=== PATIENT | female | born 1970 | race African-American/Black ===

== ENCOUNTER 2016-06-18 11:19 | Inpatient (IN) | payer OTHER ==
[2016-06-18 18:37] VITALS: BMI 27.4
--- NOTE | 2016-06-18 19:16 | HP ---
CIWA Score - CIWA Score Nausea/Vomitin-Mild Nausea/No Vomiting Muscle Tremors: 4-Moderate,w/Arms Extend Anxiety: 4-Mod. Anxious/Guarded Agitation: 4-Moderately Restless Paroxysmal Sweats: 1-Minimal Palms Moist Orientation: 3-Disoriented Date>2 days Tacttile Disturbances: 0-None Auditory Disturbances: 0-None Visual Disturbances: 0-None Headache: 0-None Present CIWA-Ar Total Score: 17 Admission ROS S - HPI Chief Complaint: withdrawal sx Allergies/Adverse Reactions: Allergies Allergy/AdvReac Type Severity Reaction Status Date / Time No Known Allergies Allergy Verified 06/18/16 12:03 History of Present Illness: 46 years old female with long history of alcohol Exam Limitations: No Limitations - Ebola screening Have you traveled outside of the country in the last 21 days: No Have you had contact with anyone from an Ebola affected area: No Have you been sick,other than usual withdrawal symptoms: No Do you have a fever: No - Review of Systems Constitutional: Chills, Changes in sleep, Weight Stable EENT: reports: No Symptoms Reported Respiratory: reports: SOB with Exertion Cardiac: reports: No Symptoms Reported GI: reports: Nausea, Poor Fluid Intake, Abdominal cramping : reports: No Symptoms Reported Musculoskeletal: reports: No Symptoms Reported Integumentary: reports: No Symptoms Reported Neuro: reports: Tremors Endocrine: reports: No Symptoms Reported Hematology: reports: No Symptoms Reported Psychiatric: reports: Judgement Intact, Depressed Other Systems: Reviewed and Negative Patient History - Patient Medical History Hx Anemia: No Hx Asthma: No Hx Chronic Obstructive Pulmonary Disease (COPD): No Hx Cancer: No Hx Cardiac Disorders: No Hx Congestive Heart Failure: No Hx Hypertension: Yes (DYAZIDE) Hx Hypercholesterolemia: No Hx Pacemaker: No HX Cerebrovascular Accident: No Hx Seizures: No Hx Dementia: No Hx Diabetes: No Hx Gastrointestinal Disorders: No Hx Liver Disease: No Hx Genitourinary Disorders: No Hx Sexually Transmitted Disorders: No Hx Renal Disease (ESRD): No Hx Thyroid Disease: No Hx Human Immunodeficiency Virus (HIV): No Hx Hepatitis C: No Hx Depression: Yes Hx Suicide Attempt: No Hx Bipolar Disorder: No Hx Schizophrenia: No - Patient Surgical History Past Surgical History: Yes Hx Neurologic Surgery: No Hx Cataract Extraction: No Hx Cardiac Surgery: No Hx Lung Surgery: No Hx Breast Surgery: No Hx Breast Biopsy: No Hx Abdominal Surgery: Yes ([id number]) Hx Appendectomy: No Hx Cholecystectomy: No Hx Genitourinary Surgery: No Hx Section: No Hx Orthopedic Surgery: No Hx Hysterectomy: No Anesthesia Reaction: No - PPD History Previous Implant?: Yes Documented Results: Negative w/proof Implanted On Prior [facility] Admission?: Yes Date: 01/06/16 PPD to be Administered?: No - Reproductive History Patient is a Female of Child Bearing Age (11 -55 yrs old): Yes Last Menstrual Period: 06/15/16 Patient : Yes - Smoking Cessation Smoking history: Never smoked Have you smoked in the past 12 months: No Cigars Per Day: 0 Hx Chewing Tobacco Use: No Initiated information on smoking cessation: No - Substance & Tx. History Hx Alcohol Use: No Substance Use Type: Alcohol Hx Substance Use Treatment: Yes - Substances Abused Alcohol Route: Oral Frequency: Daily Amount used: pint volka Age of first use: 25 Date of Last Use: 06/18/16 Family Disease History - Family Disease History Family Disease History: Heart Disease: Mother (HTN) Admission Physical Exam S - Vital Signs Vital Signs: Vital Signs - 24 hr 06/18/16 06/18/16 11:37 18:31 Temperature 96.8 F L 97.3 F L Pulse Rate 86 83 Respiratory 20 16 Rate Blood Pressure 148/96 139/96 - Physical General Appearance: Yes: Nourished, Appropriately Dressed, Moderate Distress, Alcohol on Breath, Tremorous, Irritable, Sweating, Anxious HEENTM: Yes: Hearing grossly Normal, Normal ENT Inspection, Normocephalic, Normal Voice Respiratory: Yes: Chest Non-Tender, Lungs Clear, Normal Breath Sounds, No Respiratory Distress, No Accessory Muscle Use Neck: Yes: Supple, Trachea in good position Breast: Yes: Breasts Symetrical Cardiology: Yes: Regular Rhythm, Regular Rate, S1, S2 Abdominal: Yes: Non Tender, Soft Genitourinary: Yes: Within Normal Limits Back: Yes: Normal Inspection Musculoskeletal: Yes: full range of Motion, Gait Steady Extremities: Yes: Normal Range of Motion, Non-Tender, Tremors Neurological: Yes: Alert, Motor Strength 5/5, Normal Response, Depressed Affect Integumentary: Yes: Warm, Moist Lymphatic: Yes: Within Normal Limits - Diagnostic (1) Alcohol dependence with uncomplicated withdrawal Current Visit: Yes Status: Acute (2) HTN (hypertension) Current Visit: Yes Status: Acute Qualifiers: Hypertension type: essential hypertension Qualified Code(s): I10 - Essential (primary) hypertension Cleared for Admission [facility] - Detox or Rehab [facility] Level of Care: Medically Managed Detox Regimen/Protocol: Librium [facility] Breath Alcohol Content Breath Alcohol Content: 0.171 Urine Pregancy Test - Result Urine Test Results: Negative- NO Line Present Urine Drug Screen - Results Drug Screen Negative: Yes
[2016-06-18] MEDS ORDERED: MAGNESIUM CITRATE 300 ML BOTTLE PO PRN (19:19)
[2016-06-18] MEDS ORDERED: MENTHOL/PHENOL 1 EACH UD MM PRN (19:19)
[2016-06-18] MEDS ORDERED: ACETAMINOPHEN 325 MG TABLET (FP) PO PRN (19:19)
[2016-06-18] MEDS ORDERED: MAGNESIUM HYDROX 2400MG/30ML ORAL SUSPENSION 30 ML CUP PO PRN (19:19)
[2016-06-18] MEDS ORDERED: chlordiazePOXIDE HCL 25 MG CAPSULE PO PRN (19:19)
[2016-06-18] MEDS ORDERED: LOPERAMIDE HCL 2 MG CAPSULE PO PRN (19:19)
[2016-06-18] MEDS ORDERED: guaiFENesin/D-METHORPHAN HB 10 ML UNIT-DOSE CUPS PO PRN (19:19)
[2016-06-18] MEDS ORDERED: chlordiazePOXIDE HCL 25 MG CAPSULE PO ONE (19:19)
[2016-06-18] MEDS ORDERED: MAG HYDROX/AL HYDROX/SIMETH 30 ML UNIT-DOSE CUP PO PRN (19:19)
[2016-06-18] MEDS ORDERED: P-EPHED 60MG/TRIPROLIDI 2.5MG TABLET PO PRN (19:19)
[2016-06-18] MEDS: chlordiazePOXIDE HCL 25 MG CAPSULE PO SCH (22:46)
[2016-06-18] MEDS: THIAMINE HCL 100 MG TABLET (FP) PO SCH (22:46)
[2016-06-18 23:09] LABS: URINE APPEARANCE CLEAR; URINE BILIRUBIN NEGATIVE (NEGATIVE); URINE COLOR YELLOW; URINE GLUCOSE (UA) NEGATIVE (NEGATIVE); URINE KETONE NEGATIVE (NEGATIVE); URINE LEUK ESTERASE NEGATIVE (NEGATIVE); URINE NITRITE NEGATIVE (NEGATIVE); URINE PROTEIN NEGATIVE (NEGATIVE); URINE UROBILINOGEN NEGATIVE E.U./dl (0.2-1.0)
[2016-06-18 23:25] LABS: URINE BLOOD 1+ (NEGATIVE)
[2016-06-18] MEDS: cloNIDine HCL 0.1 MG TABLET PO PRN (23:27)
[2016-06-18] MEDS: diphenhydrAMINE HCL 50 MG CAPSULE PO PRN (23:27)
[2016-06-18 23:33] LABS: URINE BACTERIA RARE /hpf (NONE SEEN); URINE MUCUS MANY; URINE RBC 10 /hpf (0-3); URINE WBC 2 /hpf (3-5)
[2016-06-19] MEDS: chlordiazePOXIDE HCL 25 MG CAPSULE PO SCH ×4 (05:59→22:47)
[2016-06-19] MEDS: hydrOXYzine PAMOATE 50 MG CAPSULE (FP) PO PRN ×2 (05:59→10:44)
[2016-06-19] MEDS: PRENATAL VITAMINS W/ FOLIC ACID TABLET (FP) PO SCH (10:44)
[2016-06-19] MEDS: amLODIPine BESYLATE 10 MG TABLET (FP) PO SCH (10:44)
[2016-06-19] MEDS: METOPROLOL SUCCINATE 25 MG TAB.SR.24H (FP) PO SCH (10:44)
[2016-06-19 11:16] LABS: MCHC 30.8 g/dl (32.0-36.0); MEAN CELL VOLUME 71.3 fl (80-96); MEAN PLT VOLUME 8.4 fl (7.5-11.1); PLATELET COUNT 352 K/MM3 (134-434); RDW 23.6 % (11.6-15.6); WHITE BLOOD COUNT 4.9 K/mm3 (4.0-10.0)
[2016-06-19 11:42] LABS: ALBUMIN 3.3 g/dl (3.4-5.0); ALK PHOS 58 U/L (45-117); ANION GAP 9 (8-16); BILIRUBIN,TOTAL 0.5 mg/dL (0.2-1.0); CALCIUM 8.3 mg/dL (8.5-10.1); CO2 28 mmol/L (21-32); CREATININE 0.6 mg/dL (0.55-1.02); GLUCOSE,RANDOM 78 mg/dL (74-106); SGOT/AST 23 U/L (15-37); SGPT/ALT 18 U/L (12-78); TOT PROT 6.7 g/dl (6.4-8.2)
--- NOTE | 2016-06-19 13:28 | PN ---
[facility] CIWA - CIWA Score Nausea/Vomitin Muscle Tremors: 3 Anxiety: 3 Agitation: 2 Paroxysmal Sweats: 1-Minimal Palms Moist Orientation: 0-Oriented Tacttile Disturbances: 1-Very Mild Itch/Numbness Auditory Disturbances: 1-Very Mild Visual Disturbances: 1-Very Mild Sensitivity Headache: 2-Mild CIWA-Ar Total Score: 17 S Progress Note (SOAP) Subjective: ALERT,IRRITABLE,ANXIOUS,INTERRUPTED SLEEP,TREMOR,HISTORY OF ANEMIA,USE TO TAKE IRON BUT STOPPED , HAS BEEN FOLLOWED UP WITH PMD Objective: 06/19/16 13:23 Vital Signs Temperature 97.6 F 06/19/16 10:30 Pulse Rate 88 06/19/16 10:30 Respiratory Rate 16 06/19/16 10:30 Blood Pressure 141/90 06/19/16 10:30 O2 Sat by Pulse Oximetry (%) EKG NSR NO CHEST PAIN,NO SOB,NO DIZZINESS Laboratory Last Values WBC 4.9 K/mm3 (4.0-10.0) 06/19/16 08:00 RBC 3.85 M/mm3 (3.60-5.2) 06/19/16 08:00 Hgb 8.4 GM/dL (10.7-15.3) L 06/19/16 08:00 Hct 27.4 % (32.4-45.2) L 06/19/16 08:00 MCV 71.3 fl (80-96) L 06/19/16 08:00 MCHC 30.8 g/dl (32.0-36.0) L 06/19/16 08:00 RDW 23.6 % (11.6-15.6) H 06/19/16 08:00 Plt Count 352 K/MM3 (134-434) 06/19/16 08:00 MPV 8.4 fl (7.5-11.1) 06/19/16 08:00 Sodium 140 mmol/L (136-145) 06/19/16 08:00 Potassium 3.8 mmol/L (3.5-5.1) 06/19/16 08:00 Chloride 103 mmol/L (98-107) 06/19/16 08:00 Carbon Dioxide 28 mmol/L (21-32) 06/19/16 08:00 Anion Gap 9 (8-16) 06/19/16 08:00 BUN 9 mg/dL (7-18) D 06/19/16 08:00 Creatinine 0.6 mg/dL (0.55-1.02) 06/19/16 08:00 Creat Clearance w eGFR > 60 (>60) 06/19/16 08:00 Random Glucose 78 mg/dL (74-106) 06/19/16 08:00 Calcium 8.3 mg/dL (8.5-10.1) L 06/19/16 08:00 Total Bilirubin 0.5 mg/dL (0.2-1.0) D 06/19/16 08:00 AST 23 U/L (15-37) 06/19/16 08:00 ALT 18 U/L (12-78) D 06/19/16 08:00 Alkaline Phosphatase 58 U/L (45-117) D 06/19/16 08:00 Total Protein 6.7 g/dl (6.4-8.2) 06/19/16 08:00 Albumin 3.3 g/dl (3.4-5.0) L 06/19/16 08:00 Urine Color Yellow 06/18/16 20:13 Urine Appearance Clear 06/18/16 20:13 Urine pH 6.0 (5.0-8.0) 06/18/16 20:13 Ur Specific [place] 1.016 (1.001-1.035) 06/18/16 20:13 Urine Protein Negative (NEGATIVE) 06/18/16 20:13 Urine Glucose (UA) Negative (NEGATIVE) 06/18/16 20:13 Urine Ketones Negative (NEGATIVE) 06/18/16 20:13 Urine Blood 1+ (NEGATIVE) H 06/18/16 20:13 Urine Nitrite Negative (NEGATIVE) 06/18/16 20:13 Urine Bilirubin Negative (NEGATIVE) 06/18/16 20:13 Urine Urobilinogen Negative E.U./dl (0.2-1.0) 06/18/16 20:13 Ur Leukocyte Esterase Negative (NEGATIVE) 06/18/16 20:13 Urine RBC 10 /hpf (0-3) 06/18/16 20:13 Urine WBC 2 /hpf (3-5) 06/18/16 20:13 Ur Epithelial Cells Rare /hpf (FEW) 06/18/16 20:13 Urine Bacteria Rare /hpf (NONE SEEN) 06/18/16 20:13 Urine Mucus Many 06/18/16 20:13 Assessment: 06/19/16 13:26 WITHDRAWAL SYMPTOM Plan: CONTINUE DETOX,FERROUS SULFATE 325 MS PO BID,ENSURE PLUS 120 MLS PO BID,ADVISE FOLLOW UP WITH OWN PMD FOR FOLLOW UP FOR ANEMIA UPON DISCHARGE
--- NOTE | 2016-06-19 13:56 | CONSULT ---
[facility] Psychiatric Consult - Data Date of interview: 06/19/16 Admission source: [facility] Identifying data: Readmission to [facility] [place] for this 46 y/o AA female seeking detox treatment on for alcohol dependence.Patient is ,a mother of one,homeless (care home),unemployed and supported on food stamps. Substance Abuse History: - Smoking Cessation. Smoking history: Never smoked. Have you smoked in the past 12 months: No. Cigars Per Day: 0. Hx Chewing Tobacco Use: No. Initiated information on smoking cessation: No. - Substance & Tx. History. Hx Alcohol Use: No. Substance Use Type: Alcohol. Hx Substance Use Treatment: Yes. - Substances Abused. Alcohol. Route: Oral. Frequency : Daily. Amount used: pint volka. Age of first use: 25. Date of Last Use: 07/02. Confirmed by the patien in this interview. Medical History: Hypertension and a history of myectomy for fibroids (2007). Psychiatric History: No history of psychiatric hospitalizations.Patient used to be folloed at the [facility] to address mood dysregulation.Ms Puentes indicates previous exposure to an antidepressant medication (name not recalled) that she stopped taking due to intolerable adverse effects.At the care home,she had " an awful experience with trazodone " described as visual hallucinations which led the patient to develop a distrust of psychotropic drugs.She agrees to take a low dose dose of seroquel (no more than 50 mg/hs) to address chronic insomnia.No history of suicide attempts. Physical/Sexual Abuse/Trauma History: Patient denies. Additional Comment: Drug Screen is negative. Mental Status Exam - Mental Status Exam Alert and Oriented to: Time, Place, Person Cognitive Function: Good Patient Appearance: Well Groomed Mood: Hopeful, Euthymic Affect: Appropriate, Normal Range Patient Behavior: Passive, Fatigued, Cooperative Speech Pattern: Clear, Appropriate Voice Loudness: Normal Thought Process: Goal Oriented Thought Disorder: Not Present Hallucinations: Denies Suicidal Ideation: Denies Homicidal Ideation: Denies Insight/Judgement: Poor Sleep: Poorly, Difficulty falling asleep Appetite: Good Muscle strength/Tone: Normal Gait/Station: Normal Psychiatric Findings - Problem List ([place] 1, 2,3) (1) Alcohol dependence with uncomplicated withdrawal Current Visit: Yes Status: Acute (2) Substance or medication-induced sleep disorder, insomnia type Current Visit: Yes Status: Acute (3) Alcohol-induced mood disorder Current Visit: Yes Status: Acute (4) HTN (hypertension) Current Visit: Yes Status: Acute Qualifiers: Hypertension type: essential hypertension Qualified Code(s): I10 - Essential (primary) hypertension (5) Anemia Current Visit: Yes Status: Chronic Qualifiers: Anemia type: unspecified type Qualified Code(s): D64.9 - Anemia, unspecified - Initial Treatment Plan Initial Treatment Plan: Psychoeducation.Detoxification.Seroquel 50 mg po hs.Side effects/benefits discussed with patient.Made aware of risks of metabolic syndrome,abnormal involuntary movements,oversedation and potential for accidental falls.Patient agrees to have a trial of seroquel for insomnia ( she was offered zolpidem but she refused for fear of parasomnias).Observation.
[2016-06-19] MEDS: QUEtiapine FUMARATE 50 MG TABLET PO SCH (22:46)
[2016-06-19] MEDS: FERROUS SO4 325 MG TABLET (FP) PO SCH (22:46)
[2016-06-19] MEDS: diphenhydrAMINE HCL 50 MG CAPSULE PO PRN (22:46)
[2016-06-19] MEDS: THIAMINE HCL 100 MG TABLET (FP) PO SCH (22:47)
[2016-06-20] MEDS: chlordiazePOXIDE HCL 25 MG CAPSULE PO SCH ×3 (05:47→18:04)
[2016-06-20] MEDS: METOPROLOL SUCCINATE 25 MG TAB.SR.24H (FP) PO SCH (10:35)
[2016-06-20] MEDS: PRENATAL VITAMINS W/ FOLIC ACID TABLET (FP) PO SCH (10:35)
[2016-06-20] MEDS: amLODIPine BESYLATE 10 MG TABLET (FP) PO SCH (10:35)
[2016-06-20] MEDS: FERROUS SO4 325 MG TABLET (FP) PO SCH ×2 (10:35→22:34)
--- NOTE | 2016-06-20 13:40 | PN ---
S CIWA - CIWA Score Nausea/Vomitin Muscle Tremors: 3 Anxiety: 3 Agitation: 2 Paroxysmal Sweats: 1-Minimal Palms Moist Orientation: 0-Oriented Tacttile Disturbances: 1-Very Mild Itch/Numbness Auditory Disturbances: 1-Very Mild Visual Disturbances: 1-Very Mild Sensitivity Headache: 2-Mild CIWA-Ar Total Score: 17 [facility] Progress Note (SOAP) Subjective: ALERT,IRRITABLE,ANXIOUS,INTERRUPTED SLEEP,TREMOR Objective: 06/20/16 13:39 Vital Signs Temperature 97.5 F L 06/20/16 09:57 Pulse Rate 88 06/20/16 09:57 Respiratory Rate 16 06/20/16 09:57 Blood Pressure 123/72 06/20/16 09:57 O2 Sat by Pulse Oximetry (%) Assessment: 06/20/16 13:39 WITHDRAWAL SYMPTOM Plan: CONTINUE DETOX
[2016-06-20] MEDS: IBUPROFEN 400 MG TABLET (FP) PO PRN (22:33)
[2016-06-20] MEDS: THIAMINE HCL 100 MG TABLET (FP) PO SCH (22:34)
[2016-06-20] MEDS: chlordiazePOXIDE 5 MG CAPSULE PO SCH (22:34)
[2016-06-20] MEDS: cloNIDine HCL 0.1 MG TABLET PO PRN (22:34)
[2016-06-20] MEDS: QUEtiapine FUMARATE 50 MG TABLET PO SCH (22:34)
--- NOTE | 2016-06-20 22:51 | EKG ---
Test Reason : Blood Pressure : / mmHG Vent. Rate : 076 BPM Atrial Rate : 076 BPM P-R Int : 168 ms QRS Dur : 072 ms QT Int : 400 ms P-R-T Axes : 055 013 -34 degrees QTc Int : 450 ms POOR DATA QUALITY, INTERPRETATION MAY BE ADVERSELY AFFECTED NORMAL SINUS RHYTHM POSSIBLE LEFT ATRIAL ENLARGEMENT ABNORMAL ECG WHEN COMPARED WITH ECG OF 22-MAR-2016 13:28, Confirmed by VICKIE POON, FILI ([id number]) on 06/20/2016 10:51:23 PM Referred By: Confirmed By:FILI JOHNSTON MD
[2016-06-21] MEDS: chlordiazePOXIDE 5 MG CAPSULE PO SCH ×4 (06:33→17:17)
--- NOTE | 2016-06-21 10:39 | PN ---
[facility] Progress Note (SOAP) Subjective: drooggy, sweats Objective: 06/21/16 10:36 Vital Signs Temperature 97.9 F 06/21/16 10:18 Pulse Rate 76 06/21/16 10:18 Respiratory Rate 18 06/21/16 10:18 Blood Pressure 126/63 06/21/16 10:18 O2 Sat by Pulse Oximetry (%) Laboratory Tests 06/18/16 06/19/16 06/19/16 20:13 08:00 08:00 WBC 4.9 RBC 3.85 Hgb 8.4 L Hct 27.4 L MCV 71.3 L MCHC 30.8 L RDW 23.6 H Plt Count 352 MPV 8.4 Sodium 140 Potassium 3.8 Chloride 103 Carbon Dioxide 28 Anion Gap 9 BUN 9 D Creatinine 0.6 Creat Clearance w eGFR > 60 Random Glucose 78 Calcium 8.3 L Total Bilirubin 0.5 D AST 23 ALT 18 D Alkaline Phosphatase 58 D Total Protein 6.7 Albumin 3.3 L Urine Color Yellow Urine Appearance Clear Urine pH 6.0 Ur Specific [place] 1.016 Urine Protein Negative Urine Glucose (UA) Negative Urine Ketones Negative Urine Blood 1+ H Urine Nitrite Negative Urine Bilirubin Negative Urine Urobilinogen Negative Ur Leukocyte Esterase Negative Urine RBC 10 Urine WBC 2 Ur Epithelial Cells Rare Urine Bacteria Rare Urine Mucus Many RPR Titer 06/19/16 08:00 WBC RBC Hgb Hct MCV MCHC RDW Plt Count MPV Sodium Potassium Chloride Carbon Dioxide Anion Gap BUN Creatinine Creat Clearance w eGFR Random Glucose Calcium Total Bilirubin AST ALT Alkaline Phosphatase Total Protein Albumin Urine Color Urine Appearance Urine pH Ur Specific [place] Urine Protein Urine Glucose (UA) Urine Ketones Urine Blood Urine Nitrite Urine Bilirubin Urine Urobilinogen Ur Leukocyte Esterase Urine RBC Urine WBC Ur Epithelial Cells Urine Bacteria Urine Mucus RPR Titer Nonreactive pt aox3 in nad , lying in bed 06/21/16 11:31 repeat ekg nsr 84/m , nad , ns-st/t changes . Assessment: 06/21/16 10:37 withdrawal sx;s Plan: cont. detox increase fluids d/c in am
[2016-06-21] MEDS: FERROUS SO4 325 MG TABLET (FP) PO SCH ×2 (10:55→22:18)
[2016-06-21] MEDS: amLODIPine BESYLATE 10 MG TABLET (FP) PO SCH (10:55)
[2016-06-21] MEDS: METOPROLOL SUCCINATE 25 MG TAB.SR.24H (FP) PO SCH (10:55)
[2016-06-21] MEDS: PRENATAL VITAMINS W/ FOLIC ACID TABLET (FP) PO SCH (10:58)
[2016-06-21] MEDS: THIAMINE HCL 100 MG TABLET (FP) PO SCH (22:18)
[2016-06-21] MEDS: QUEtiapine FUMARATE 50 MG TABLET PO SCH (22:18)
[2016-06-21] MEDS: chlordiazePOXIDE HCL 10 MG CAPSULE PO SCH (22:18)
[2016-06-21] MEDS: cloNIDine HCL 0.1 MG TABLET PO PRN (22:18)
[2016-06-21] MEDS: IBUPROFEN 400 MG TABLET (FP) PO PRN (22:19)
[2016-06-22] MEDS: chlordiazePOXIDE HCL 10 MG CAPSULE PO SCH (05:41)
[2016-06-22 06:23] VITALS: BP 114/71; PULSE 79; TEMP 97.9
--- NOTE | 2016-06-22 09:11 | DS ---
[facility] Detox Discharge Summary Admission Date: 06/18/16 Discharge Date: 06/22/16 - History Present History: Alcohol Dependence - Physical Exam Results Vital Signs: Vital Signs Temperature 97.9 F 06/22/16 06:22 Pulse Rate 79 06/22/16 06:22 Respiratory Rate 18 06/22/16 06:22 Blood Pressure 114/71 06/22/16 06:22 O2 Sat by Pulse Oximetry (%) - Medication Discharge Medications: Ambulatory Orders Amlodipine Besylate [Norvasc -] 10 mg PO DAILY 06/18/16 Metoprolol Tartrate [Lopressor -] 25 mg PO DAILY 06/18/16 Quetiapine Fumarate [Seroquel -] 50 mg PO HS #20 tablet 06/19/16 - Diagnosis (1) Alcohol dependence with uncomplicated withdrawal Current Visit: Yes Status: Chronic (2) Alcohol-induced mood disorder Current Visit: Yes Status: Chronic (3) HTN (hypertension) Current Visit: Yes Status: Chronic Qualifiers: Hypertension type: essential hypertension Qualified Code(s): I10 - Essential (primary) hypertension (4) Substance or medication-induced sleep disorder, insomnia type Current Visit: Yes Status: Chronic (5) Anemia Current Visit: Yes Status: Chronic Qualifiers: Anemia type: unspecified type Qualified Code(s): D64.9 - Anemia, unspecified (6) Alcohol intoxication Current Visit: No Status: Acute Qualifiers: Complication of substance-induced condition: uncomplicated Qualified Code(s): F10.120 - Alcohol abuse with intoxication, uncomplicated - AMA Did Patient Leave Against Medical Advice: No
--- NOTE | 2016-06-22 11:08 | EKG ---
Test Reason : Blood Pressure : / mmHG Vent. Rate : 084 BPM Atrial Rate : 084 BPM P-R Int : 160 ms QRS Dur : 076 ms QT Int : 406 ms P-R-T Axes : 060 019 -25 degrees QTc Int : 479 ms NORMAL SINUS RHYTHM NONSPECIFIC T WAVE ABNORMALITY PROLONGED QT ABNORMAL ECG WHEN COMPARED WITH ECG OF 18-JUN-2016 21:01, T WAVE VARIATION Confirmed by VALDO MADDOX MD ([id number]) on 06/22/2016 11:08:00 AM Referred By: Confirmed By:VALDO MADDOX MD
== END 2016-06-22 09:07 | disposition home or self-care (01) | DRG 775 ==
LOC: YASAS 11:19 → Y6N 19:52
PROVIDERS: ADMIT Internal Medicine; ATTEND Internal Medicine
PROC: HZ2ZZZZ Detoxification Services for Substance Abuse Treatment (ICD-10-PCS; principal; 2016-06-22)
DX: F10.230 Alcohol dependence with withdrawal, uncomplicated (principal); F10.24 Alcohol dependence with alcohol-induced mood disorder; F19.282 Other psychoactive substance dependence with psychoactive substance-induced sleep disorder; I10 Essential (primary) hypertension; D64.9 Anemia, unspecified
CPT/HCPCS: 36415; 80053; 81003; 81015; 85027; 86593; 93005; 93010

== ENCOUNTER 2016-06-18 11:42 | Emergency (ER) | payer OTHER ==
[2016-06-18] MEDS ORDERED: FOLIC ACID INJECTION - 1 MG, THIAMINE HCL 100 MG, MULTIVIT INJECTION ADULT 10 ML in SOD... IVPB ONE (12:06)
[2016-06-18 12:07] VITALS: TEMP 97.1; BMI 32.8
--- NOTE | 2016-06-18 12:23 | PDOC ---
History of Present Illness - General History Source: Patient - History of Present Illness Timing/Duration: other (this am) Associated Symptoms: reports: malaise, weakness. denies: chest pain, cough, diaphoresis, fever/chills, headaches, nausea/vomiting, seizure, shortness of breath, syncope <Arlyn Willis - Last Filed: 06/18/16 16:07> <Saskia Day - Last Filed: 06/19/16 09:04> - General Chief Complaint: Alcohol intoxication Stated Complaint: DETOX Time Seen by Provider: 06/18/16 12:00 Past History - Past Medical History Anemia: No Asthma: No Cancer: No Cardiac Disorders: No CVA: No COPD: No CHF: No Dementia: No Diabetes: No GI Disorders: No Disorders: No HTN: Yes (DYAZIDE) Hypercholesterolemia: No Kidney Stones: No Liver Disease: No Suicide Attempt (Hx): No Seizures: No Thyroid Disease: No - Surgical History Abdominal Surgery: Yes (MYOMECTOMY) Appendectomy: No Cardiac Surgery: No Cholecystectomy: No Lung Surgery: No Neurologic Surgery: No Orthopedic Surgery: No - Reproductive History PID: No - Psycho/Social/Smoking Cessation Hx Anxiety: No Suicidal Ideation: No Smoking History: Never smoked Hx Alcohol Use: Yes (03/20/16) Drug/Substance Use Hx: No Substance Use Type: Alcohol Hx Substance Use Treatment: No <Arlyn Willis - Last Filed: 06/18/16 16:07> <Saskia Day - Last Filed: 06/19/16 09:04> - Past Medical History Allergies/Adverse Reactions: Allergies Allergy/AdvReac Type Severity Reaction Status Date / Time No Known Allergies Allergy Verified 06/18/16 12:03 Home Medications: Ambulatory Orders Amlodipine Besylate [Norvasc -] 10 mg PO DAILY 06/18/16 Metoprolol Tartrate [Lopressor -] 25 mg PO DAILY 06/18/16 Review of Systems - Review of Systems Constitutional: Yes: Malaise. No: Chills, Fever Respiratory: No: Shortness of Breath Cardiac (ROS): No: Chest Pain ABD/GI: No: Nausea, Vomiting Neurological: Yes: Weakness. No: Headache <Arlyn Willis - Last Filed: 06/18/16 16:07> *Physical Exam - Vital Signs Last Vital Signs Temp Pulse Resp BP Pulse Ox 97.1 F L 82 18 125/80 100 06/18/16 12:03 06/18/16 12:03 06/18/16 12:03 06/18/16 12:03 06/18/16 12:03 - Physical Exam Comments: 06/18/16 12:25 appears intoxicated General Appearance: Yes: Appropriately Dressed, Alcohol on Breath HEENT: positive: Normal Voice, Other (no obvious head injury) Neck: positive: Supple Respiratory/Chest: positive: Lungs Clear, Normal Breath Sounds. negative: Respiratory Distress Cardiovascular: positive: Regular Rate, S1, S2 Gastrointestinal/Abdominal: positive: Soft. negative: Tender Integumentary: positive: Dry, Warm Neurologic: positive: Other (appears mostly lethargic, only oriented to place) <Arlyn Willis - Last Filed: 06/18/16 16:07> - Vital Signs Last Vital Signs Temp Pulse Resp BP Pulse Ox 97.1 F L 90 18 148/94 98 06/18/16 12:03 06/18/16 16:16 06/18/16 16:16 06/18/16 16:16 06/18/16 16:16 <Saskia Day - Last Filed: 06/19/16 09:04> ED Treatment Course - Medications Given in the ED: ED Medications Discontinued Medications Generic Name Dose Route Start Last Admin Trade Name Freq PRN Reason Stop Dose Admin Folic Acid 1 mg/ Thiamine HCl 1,000 mls @ 125 mls/hr 06/18/16 12:06 06/18/16 12 :30 100 mg/ Multivitamins/Minerals IVPB 06/18/16 20:05 125 mls/hr 10 ml/ Sodium Chloride ONCE ONE Administration <Saskia Day - Last Filed: 06/19/16 09:04> Medical Decision Making - Medical Decision Making 06/18/16 12:07 46-year-old female history of hypertension, alcohol abuse with multiple ED visits for intoxication and withdrawal, sent from [facility] for acute alcohol intoxication after patient walked into facility this am requesting inpatient detox. Was sent to ED because pt was too intoxicated as per EMS. No witnessed fall. Pt now admits to drinking "1 bottle of vodka" this am See exam Acute etoh intox Stable -banana bag -sobriety -watch for signs of withdrawal 06/18/16 12:26 06/18/16 12:28 06/18/16 14:00 ETOK lvl > 300. Pt much more alert in ED, walking to and from restroom and now requesting food 06/18/16 16:07 Pt able to daphne po in ED. Pt remains alert and stable for discharge back to [facility] 06/18/16 16:09 <Arlyn Willis - Last Filed: 06/18/16 16:07> *DC/Admit/Observation/Transfer <Arlyn Willis - Last Filed: 06/18/16 16:07> - Attestations Physician Attestion: I reviewed the case with the mid-level practitioner and agree with the mid- level practitioner's assessment, diagnosis and disposition. <Saskia Day - Last Filed: 06/19/16 09:04> Diagnosis at time of Disposition: Alcohol intoxication Qualifiers: Complication of substance-induced condition: uncomplicated Qualified Code(s): F10.120 - Alcohol abuse with intoxication, uncomplicated - Discharge Dispostion Disposition: HOME Condition at time of disposition: Improved - Patient Instructions Printed Discharge Instructions: DI for Alcohol Abuse Additional Instructions: Patient's alcohol level was in the 370s. After several hours of observation, patient was able to ambulate throughout ED and tolerated po. Was alert and stable at time of discharge
[2016-06-18 16:17] VITALS: BP 148/94; PULSE 90
== END 2016-06-18 16:25 | disposition home or self-care (01) ==
LOC: JER 11:42
PROC: 3E033GC Introduction of Other Therapeutic Substance into Peripheral Vein, Percutaneous Approach (ICD-10-PCS; principal; 2016-06-18)
DX: F10.120 Alcohol abuse with intoxication, uncomplicated (principal); I10 Essential (primary) hypertension
CPT/HCPCS: 36415; 80307; 96365; 99282-25

== ENCOUNTER 2016-08-16 14:40 | Emergency (ER) | payer OTHER ==
[2016-08-16 14:54] VITALS: TEMP 98; BMI 32.1
[2016-08-16 15:12] LABS: MCH 21.4 pg (25.7-33.7); MCHC 30.4 g/dl (32.0-36.0); MEAN CELL VOLUME 70.2 fl (80-96); MEAN PLT VOLUME 7.7 fl (7.5-11.1); PLATELET COUNT 683 K/MM3 (134-434); RDW 23.5 % (11.6-15.6); WHITE BLOOD COUNT 6.4 K/mm3 (4.0-10.0)
[2016-08-16 15:44] LABS: ALBUMIN 3.8 g/dl (3.4-5.0); ALK PHOS 57 U/L (45-117); ANION GAP 9 (8-16); BILIRUBIN,TOTAL 0.4 mg/dL (0.2-1.0); CALCIUM 8.3 mg/dL (8.5-10.1); CO2 29 mmol/L (21-32); COCKROFT - GAULT 165.3845; CREATININE 0.7 mg/dL (0.55-1.02); GLUCOSE,RANDOM 96 mg/dL (74-106); PLATELET ESTIMATE INCREASED (NORMAL); SGOT/AST 56 U/L (15-37); SGPT/ALT 29 U/L (12-78); TOT PROT 7.4 g/dl (6.4-8.2)
[2016-08-16 15:45] LABS: ANISOCYTOSIS 2+; HYPOCHROMIA 3+; MICROCYTOSIS 1+; TARGET CELLS 2+
--- NOTE | 2016-08-16 15:54 | PDOC ---
History of Present Illness - General Chief Complaint: Alcohol intoxication Stated Complaint: DEXTOX Time Seen by Provider: 08/16/16 15:42 - History of Present Illness Initial Comments: 08/16/16 15:53 CHIEF COMPLAINT: HISTORY OF PRESENT ILLNESS: 46 yo F with hx of alcohol abuse presents to ED with request to go to detox center. Patient states she has no complaints "and there's nothing wrong with me except that I want to stop drinking." No recent travel or sick contacts. PAST MEDICAL HISTORY: Denies past medical history FAMILY HISTORY: Denies SOCIAL HISTORY: Daily alcohol use, last drink today "bottle of vodka." Denies tobacco,illicit drug use. SURGICAL HISTORY: Denies ALLERGIES: No known drug allergies REVIEW OF SYSTEMS - patient intoxicated, adamantly refuses interview and exam amd states "there is nothing wrong, I am ok, I just want to go to detox." PHYSICAL EXAM General Appearance: Intoxicated. HEENT: EOMI, PERRLA, normal ENT inspection, normal voice. No conjunctival pallor. No photophobia, scleral icterus. Respiratory/Chest: Lungs CTAB. Cardiovascular: RRR. S1, S2. Musculoskeletal/Extremities: Normal inspection. FROM of all extremities, normal capillary refill. No tenderness to extremities, pedal edema, swelling, erythema or deformity. Integumentary: Appropriate color, dry, warm. No cyanosis, erythema, jaundice or rash 08/16/16 17:45 Past History - Past Medical History Allergies/Adverse Reactions: Allergies Allergy/AdvReac Type Severity Reaction Status Date / Time No Known Allergies Allergy Verified 08/16/16 14:54 Home Medications: Ambulatory Orders Metoprolol Succinate [Toprol Xl -] 12.5 mg PO DAILY 08/16/16 Triamterene/Hydrochlorothiazid [Maxzide 37.5 mg-25 mg Tablet] 1 each PO DAILY Anemia: No Asthma: No Cancer: No Cardiac Disorders: No CVA: No COPD: No CHF: No Dementia: No Diabetes: No GI Disorders: No Disorders: No HTN: Yes (DYAZIDE) Hypercholesterolemia: No Kidney Stones: No Liver Disease: No Suicide Attempt (Hx): No Seizures: No Thyroid Disease: No Other medical history: alcohol abuse - Surgical History Abdominal Surgery: Yes (MYOMECTOMY) Appendectomy: No Cardiac Surgery: No Cholecystectomy: No Lung Surgery: No Neurologic Surgery: No Orthopedic Surgery: No - Reproductive History PID: No - Psycho/Social/Smoking Cessation Hx Anxiety: No Suicidal Ideation: No Smoking History: Never smoked Have you smoked in the past 12 months: No Cigars Per Day: 0 Information on smoking cessation initiated: No Hx Alcohol Use: No Drug/Substance Use Hx: No Substance Use Type: Alcohol Hx Substance Use Treatment: No *Physical Exam - Vital Signs Last Vital Signs Temp Pulse Resp BP Pulse Ox 98.0 F 90 18 105/90 100 08/16/16 14:44 08/16/16 14:44 08/16/16 14:44 08/16/16 14:44 08/16/16 14:44 ED Treatment Course - LABORATORY CBC & Chemistry Diagram: 08/16/16 15:00 08/16/16 15:00 - ADDITIONAL ORDERS Additional order review: Laboratory Results 08/16/16 08/16/16 08/16/16 15:00 15:00 15:00 WBC 6.4 D RBC 4.22 Hgb 9.0 L Hct 29.6 L MCV 70.2 L MCHC 30.4 L RDW 23.5 H Plt Count 683 H D MPV 7.7 Neutrophils % 55.0 Lymphocytes % 37.0 D Monocytes % 5.0 Basophils % 3.0 H Differential Comment Manual diff done Platelet Estimate Increased Hypochromic-Microcytic 3+ Anisocytosis 2+ Microcytosis 1+ Target Cells 2+ Sodium 142 Potassium 3.7 Chloride 104 Carbon Dioxide 29 Anion Gap 9 BUN 7 D Creatinine 0.7 Creat Clearance w eGFR > 60 Random Glucose 96 D Calcium 8.3 L Total Bilirubin 0.4 AST 56 H D ALT 29 D Alkaline Phosphatase 57 Total Protein 7.4 Albumin 3.8 Alcohol, Quantitative 433.2 H* 08/16/16 15:00 RBC 4.22 MCV 70.2 L MCHC 30.4 L RDW 23.5 H MPV 7.7 Neutrophils % 55.0 Lymphocytes % 37.0 D Monocytes % 5.0 Basophils % 3.0 H Medical Decision Making - Medical Decision Making 08/16/16 17:48 46 yo F presents to ED requesting admission to detox center. Discussed case with case specialist director - [facility] will accept patient for detox program. Patient transferred to [address] [place] [address]. *DC/Admit/Observation/Transfer Diagnosis at time of Disposition: Alcohol intoxication Qualifiers: Complication of substance-induced condition: uncomplicated Qualified Code(s): F10.120 - Alcohol abuse with intoxication, uncomplicated - Discharge Dispostion Admit: No - Referrals Referrals: Filomena Oconnor MD [Primary Care Provider] - - Patient Instructions Printed Discharge Instructions: DI for Alcohol Abuse
[2016-08-16] MEDS ORDERED: ACETAMINOPHEN 325 MG TABLET (FP) PO ONE (17:29)
[2016-08-16] MEDS ORDERED: ACETAMINOPHEN 325 MG TABLET (FP) ONE (17:30)
[2016-08-16 17:56] VITALS: BP 139/88; PULSE 78
--- NOTE | 2016-08-17 22:58 | EKG ---
Test Reason : Blood Pressure : / mmHG Vent. Rate : 086 BPM Atrial Rate : 086 BPM P-R Int : 158 ms QRS Dur : 080 ms QT Int : 406 ms P-R-T Axes : 050 004 -35 degrees QTc Int : 485 ms NORMAL SINUS RHYTHM T WAVE ABNORMALITY, CONSIDER INFERIOR ISCHEMIA ABNORMAL ECG WHEN COMPARED WITH ECG OF 21-JUN-2016 10:36, NO SIGNIFICANT CHANGE WAS FOUND Confirmed by VALDO MADDOX MD ([id number]) on 08/17/2016 10:58:15 PM Referred By: Confirmed By:VALDO MADDOX MD
== END 2016-08-16 17:58 | disposition other institution (70) ==
LOC: JER 14:40
DX: F10.220 Alcohol dependence with intoxication, uncomplicated (principal); Y90.8 Blood alcohol level of 240 mg/100 ml or more
CPT/HCPCS: 36415; 80053; 80307; 84703; 85025; 93005; 93010; 99284-25

== ENCOUNTER 2017-05-14 11:10 | Inpatient (IN) | payer OTHER ==
[2017-05-14 15:35] VITALS: BMI 28.4
--- NOTE | 2017-05-14 15:57 | HP ---
CIWA Score - CIWA Score Nausea/Vomitin-Int. Nausea w/Dry Heave Muscle Tremors: 3 Anxiety: 3 Agitation: 4-Moderately Restless Paroxysmal Sweats: 2 Orientation: 1-Uncertain about Date Tacttile Disturbances: 0-None Auditory Disturbances: 0-None Visual Disturbances: 1-Very Mild Sensitivity Headache: 0-None Present CIWA-Ar Total Score: 18 Admission ROS BHS - HPI Chief Complaint: "I want to stop drinking alcohol or I will lose my hsband and my daughter" Allergies/Adverse Reactions: Allergies Allergy/AdvReac Type Severity Reaction Status Date / Time No Known Allergies Allergy Verified 05/14/17 15:43 History of Present Illness: 47 year old female with a 10 year old history of alcohol intoxication here seeking detox. Pt in prior detox, known to this detox program and states she has had Rehab at [facility] for one month.in the past Pt endorses 5 - 6 months of sobriety 3 years ago. Pt has a hx of HTN Exam Limitations: No Limitations - Ebola screening Have you traveled outside of the country in the last 21 days: No Have you had contact with anyone from an Ebola affected area: No Have you been sick,other than usual withdrawal symptoms: No Do you have a fever: No - Review of Systems Constitutional: No Symptoms Reported EENT: reports: No Symptoms Reported, Nose Congestion Respiratory: reports: No Symptoms reported Cardiac: reports: No Symptoms Reported GI: reports: Abdominal Distended, Vomiting : reports: No Symptoms Reported Musculoskeletal: reports: No Symptoms Reported, Other ( L leg/thigh pain s/p fell down stairs in her home x 2 days) Integumentary: reports: Dryness Neuro: reports: Tremors Endocrine: reports: No Symptoms Reported Hematology: reports: No Symptoms Reported Psychiatric: reports: Agitated, Anxious Patient History - Patient Medical History Hx Anemia: No Hx Asthma: No Hx Chronic Obstructive Pulmonary Disease (COPD): No Hx Cancer: No Hx Cardiac Disorders: No Hx Congestive Heart Failure: No Hx Hypertension: Yes (DYAZIDE) Hx Hypercholesterolemia: No Hx Pacemaker: No HX Cerebrovascular Accident: No Hx Seizures: No Hx Dementia: No Hx Diabetes: No Hx Gastrointestinal Disorders: No Hx Liver Disease: No Hx Genitourinary Disorders: No Hx Sexually Transmitted Disorders: No Hx Renal Disease (ESRD): No Hx Thyroid Disease: No Hx Human Immunodeficiency Virus (HIV): No Hx Hepatitis C: No Hx Depression: No Hx Suicide Attempt: No Hx Bipolar Disorder: No Hx Schizophrenia: No - Patient Surgical History Past Surgical History: Yes Hx Neurologic Surgery: No Hx Cataract Extraction: No Hx Cardiac Surgery: No Hx Lung Surgery: No Hx Breast Surgery: No Hx Breast Biopsy: No Hx Abdominal Surgery: Yes (MYOMECTOMY) Hx Appendectomy: No Hx Cholecystectomy: No Hx Genitourinary Surgery: No Hx Section: No Hx Orthopedic Surgery: No Hx Hysterectomy: No Anesthesia Reaction: No - PPD History Previous Implant?: Yes Implanted On Prior [facility] Admission?: Yes Date: 01/06/16 PPD to be Administered?: Yes - Reproductive History Last Menstrual Period: 03/03/16 - Smoking Cessation Smoking history: Never smoked Have you smoked in the past 12 months: No Cigars Per Day: 0 Hx Chewing Tobacco Use: No 'Breaking Loose' booklet given: 05/14/17 - Substance & Tx. History Hx Alcohol Use: Yes (Vodka, beer) Substance Use Type: Alcohol (a liter of vodka/ day, mixes vodka with beer - 2 or 3(40 oz beer)) - Substances Abused Alcohol Route: Oral Frequency: Daily Amount used: LIQOUR- 1/2 GALLON Age of first use: 25 Date of Last Use: 05/14/17 Family Disease History - Family Disease History Family Disease History: Heart Disease: Mother (HTN) Admission Physical Exam BHS - Vital Signs Vital Signs: Vital Signs - 24 hr 05/14/17 15:32 Temperature 97.8 F Pulse Rate 96 H Respiratory 20 Rate Blood Pressure 141/87 - Physical General Appearance: Yes: Moderate Distress, Alcohol on Breath, Anxious HEENTM: Yes: Within Normal Limits, Normal Voice Respiratory: Yes: Chest Non-Tender, Lungs Clear Neck: Yes: Supple Breast: Yes: Breast Exam Deferred Cardiology: Yes: Regular Rhythm, Regular Rate, S1, S2 Abdominal: Yes: Normal Bowel Sounds, Non Tender Back: Yes: Normal Inspection Musculoskeletal: Yes: Gait Steady Extremities: Yes: Normal Capillary Refill, Normal Inspection Neurological: Yes: Confused Integumentary: Yes: Normal Color Lymphatic: Yes: Within Normal Limits - Diagnostic (1) Alcohol dependence with uncomplicated withdrawal Current Visit: No Status: Acute (2) HTN (hypertension) Current Visit: No Status: Chronic Qualifiers: Hypertension type: essential hypertension Qualified Code(s): I10 - Essential (primary) hypertension Cleared for Admission [facility] - Detox or Rehab [facility] Level of Care: Medically Managed Detox Regimen/Protocol: Librium [facility] Breath Alcohol Content Breath Alcohol Content: 0.285 Urine Pregancy Test - Result Urine Test Results: Negative- NO Line Present Urine Drug Screen - Results Drug Screen Negative: Yes
[2017-05-14] MEDS ORDERED: MENTHOL/PHENOL 1 EACH UD MM PRN (16:18)
[2017-05-14] MEDS ORDERED: guaiFENesin/D-METHORPHAN HB 10 ML UNIT-DOSE CUPS PO PRN (16:18)
[2017-05-14] MEDS ORDERED: chlordiazePOXIDE HCL 25 MG CAPSULE PO PRN (16:18)
[2017-05-14] MEDS ORDERED: ACETAMINOPHEN 325 MG TABLET (FP) PO PRN (16:18)
[2017-05-14] MEDS ORDERED: MAGNESIUM CITRATE 300 ML BOTTLE PO PRN (16:18)
[2017-05-14] MEDS ORDERED: LOPERAMIDE HCL 2 MG CAPSULE PO PRN (16:18)
[2017-05-14] MEDS ORDERED: MAG HYDROX/AL HYDROX/SIMETH 30 ML UNIT-DOSE CUP PO PRN (16:18)
[2017-05-14] MEDS ORDERED: MAGNESIUM HYDROX 2400MG/30ML ORAL SUSPENSION 30 ML CUP PO PRN (16:18)
[2017-05-14] MEDS ORDERED: P-EPHED 60MG/TRIPROLIDI 2.5MG TABLET PO PRN (16:18)
[2017-05-14] MEDS ORDERED: IBUPROFEN 400 MG TABLET (FP) PO PRN (16:18)
[2017-05-14] MEDS ORDERED: [UNRECOGNIZED DRUG - OTHER] PO SCH (16:45)
[2017-05-14] MEDS ORDERED: TRIAMTERENE PO SCH (16:45)
[2017-05-14] MEDS ORDERED: HYDROCHLOROTHIAZIDE PO SCH (16:45)
[2017-05-14] MEDS: chlordiazePOXIDE HCL 25 MG CAPSULE PO SCH ×2 (18:45→22:42)
[2017-05-14] MEDS: TRIAMTERENE AND HCTZ - 37.5 MG/25 MG CAPSULE PO SCH (18:46)
[2017-05-14] MEDS: THIAMINE HCL 100 MG TABLET (FP) PO SCH (22:42)
[2017-05-14] MEDS: hydrOXYzine PAMOATE 50 MG CAPSULE (FP) PO PRN (23:35)
[2017-05-15] MEDS: chlordiazePOXIDE HCL 25 MG CAPSULE PO SCH ×4 (06:00→23:00)
--- NOTE | 2017-05-15 09:38 | PN ---
BHS CIWA - CIWA Score Nausea/Vomitin-Mild Nausea/No Vomiting Muscle Tremors: 3 Anxiety: 3 Agitation: 3 Paroxysmal Sweats: 3 Orientation: 0-Oriented Tacttile Disturbances: 0-None Auditory Disturbances: 0-None Visual Disturbances: 0-None Headache: 0-None Present CIWA-Ar Total Score: 13 BHS Progress Note (SOAP) Subjective: sweat tremor anxiety Objective: 05/15/17 09:37 Vital Signs Temperature 98.8 F 05/15/17 06:00 Pulse Rate 121 H 05/15/17 06:00 Respiratory Rate 20 05/15/17 06:00 Blood Pressure 141/95 05/15/17 06:00 O2 Sat by Pulse Oximetry (%) 05/15/17 09:38 lab pending Assessment: 05/15/17 09:38 withdrawal sx Plan: continue detox
[2017-05-15] MEDS ORDERED: PRENATAL VITAMINS W/ FOLIC ACID TABLET (FP) PO SCH (10:00)
[2017-05-15 10:38] LABS: HEMATOCRIT 25.3 % (32.4-45.2); HEMOGLOBIN 7.6 GM/dL (10.7-15.3); MCHC 29.8 g/dl (32.0-36.0); MEAN CELL VOLUME 66.5 fl (80-96); PLATELET COUNT 371 K/MM3 (134-434); RBC 3.81 M/mm3 (3.60-5.2); WHITE BLOOD COUNT 5.6 K/mm3 (4.0-10.0)
[2017-05-15 10:42] LABS: MCH 19.8 pg (25.7-33.7)
[2017-05-15 10:53] LABS: CALCIUM 9.3 mg/dL (8.5-10.1); CHLORIDE 98 mmol/L (98-107); POTASSIUM 3.6 mmol/L (3.5-5.1); SODIUM 140 mmol/L (136-145)
[2017-05-15 11:00] LABS: ALBUMIN 3.9 g/dl (3.4-5.0); ALK PHOS 64 U/L (45-117); ANION GAP 14 (8-16); BILIRUBIN,TOTAL 0.7 mg/dL (0.2-1.0); BLOOD UREA NITROGEN 8 mg/dL (7-18); CO2 28 mmol/L (21-32); CREATININE 0.8 mg/dL (0.55-1.02); GLUCOSE,RANDOM 89 mg/dL (74-106); SGOT/AST 106 U/L (15-37); SGPT/ALT 68 U/L (12-78); TOT PROT 7.8 g/dl (6.4-8.2)
[2017-05-15] MEDS: TRIAMTERENE AND HCTZ - 37.5 MG/25 MG CAPSULE PO SCH (11:17)
[2017-05-15] MEDS: RANITIDINE HCL 150 MG TABLET (FP) PO SCH ×2 (11:19→23:53)
--- NOTE | 2017-05-15 11:43 | EKG ---
Test Reason : Blood Pressure : / mmHG Vent. Rate : 093 BPM Atrial Rate : 093 BPM P-R Int : 160 ms QRS Dur : 092 ms QT Int : 382 ms P-R-T Axes : 055 010 -06 degrees QTc Int : 474 ms BASELINE ARTIFACT NORMAL SINUS RHYTHM NONSPECIFIC ST ABNORMALITY ABNORMAL ECG Confirmed by MD KALEB, BEE ([id number]) on 05/15/2017 11:43:17 AM Referred By: Confirmed By:BEE MANUEL MD
[2017-05-15] MEDS: FERROUS SO4 325 MG TABLET (FP) PO SCH (17:30)
[2017-05-15] MEDS ORDERED: amLODIPine BESYLATE 10 MG TABLET (FP) PO SCH (17:30)
[2017-05-15] MEDS: THIAMINE HCL 100 MG TABLET (FP) PO SCH (23:00)
[2017-05-15] MEDS: hydrOXYzine PAMOATE 50 MG CAPSULE (FP) PO PRN (23:02)
[2017-05-16] MEDS: chlordiazePOXIDE HCL 25 MG CAPSULE PO SCH (06:12)
[2017-05-16] MEDS: FERROUS SO4 325 MG TABLET (FP) PO SCH (07:12)
[2017-05-16 10:37] VITALS: BP 138/85; PULSE 106; TEMP 98.6
--- NOTE | 2017-05-16 12:11 | DS ---
[facility] Detox Discharge Summary Admission Date: 05/14/17 Discharge Date: 05/16/17 - History Additional Comments: PT TOLD [employer]ING [employer] THAT SHE WANTS TO LEAVE TO GO TAKE CARE OF HERSELF AT HOME. ATTEMPTED TO DISCOURAGE PT AND ENCOURAGE COMPLETION OF DETOX. PT BECAME LOUD AND IRRITABLE AND INSISTED ON LEAVING Pertinent Past History: HTN - Physical Exam Results Vital Signs: Vital Signs Temperature 98.6 F 05/16/17 10:36 Pulse Rate 106 H 05/16/17 10:36 Respiratory Rate 18 05/16/17 10:36 Blood Pressure 138/85 05/16/17 10:36 O2 Sat by Pulse Oximetry (%) Pertinent Admission Physical Exam Findings: WITHDRAWAL SX - Medication Discharge Medications: Ambulatory Orders Metoprolol Succinate [Toprol Xl -] 12.5 mg PO DAILY 08/16/16 Triamterene/Hydrochlorothiazid [Maxzide 37.5 mg-25 mg Tablet] 1 each PO DAILY - Diagnosis (1) Alcohol dependence with uncomplicated withdrawal Current Visit: No Status: Acute (2) HTN (hypertension) Current Visit: No Status: Chronic Qualifiers: Hypertension type: essential hypertension Qualified Code(s): I10 - Essential (primary) hypertension - AMA Did Patient Leave Against Medical Advice: Yes
[2017-05-16] MEDS ORDERED: chlordiazePOXIDE 5 MG CAPSULE PO SCH (17:00)
[2017-05-17] MEDS ORDERED: chlordiazePOXIDE HCL 10 MG CAPSULE PO SCH (17:00)
== END 2017-05-16 10:55 | disposition left against medical advice (07) | DRG 770 ==
LOC: YASAS 11:10 → Y6N 16:13
PROVIDERS: ADMIT Internal Medicine; ATTEND Internal Medicine
PROC: HZ2ZZZZ Detoxification Services for Substance Abuse Treatment (ICD-10-PCS; principal; 2017-05-14)
DX: F10.230 Alcohol dependence with withdrawal, uncomplicated (principal); I10 Essential (primary) hypertension
CPT/HCPCS: 36415; 80053; 85027; 86593; 93005; 93010

== ENCOUNTER 2017-11-05 16:19 | Inpatient (IN) | payer OTHER ==
[2017-11-05 16:52] VITALS: BMI 26.4
[2017-11-05] MEDS ORDERED: SODIUM CHLORIDE 1,000 ML IV STA (17:28)
[2017-11-05] MEDS ORDERED: HYDROmorphone HCL CARPU-JECT 1 MG/1 ML DISP.SYRIN IVPUSH ONE (17:28)
[2017-11-05] MEDS ORDERED: ONDANSETRON 4 MG/2 ML VIAL IVPUSH ONE (17:28)
--- NOTE | 2017-11-05 17:46 | PDOC ---
History of Present Illness <Julissa Dunn - Last Filed: 11/05/17 19:25> - General History Source: Patient Exam Limitations: No Limitations - History of Present Illness Initial Comments: 11/05/17 17:33 Patient is a 47F with history of alcoholism (multiple admissions for detox, no seizures, last drink "weeks" ago) and HTN here today complaining of 1 day of right sided abdominal pain with radiation to her right shoulder. Patient endorses fevers, chills, nausea, and vomiting. Patient denies pain with urination. Denies blood in vomit. Denies prior abdominal surgery. Denies having similar episodes in the past. Patient describe the pain as a stabbing. Denies chest pain, shortness of breath. <Demarcus Elizondo - Last Filed: 11/05/17 21:50> - General Chief Complaint: Weakness Stated Complaint: WEAKNESS/NAUSEA/VOMITING Time Seen by Provider: 11/05/17 17:20 Past History <Julissa Dunn - Last Filed: 11/05/17 19:25> - Past Medical History Anemia: No Asthma: No Cancer: No Cardiac Disorders: No CVA: No COPD: No CHF: No Dementia: No Diabetes: No GI Disorders: No Disorders: No HTN: Yes (DYAZIDE) Hypercholesterolemia: No Kidney Stones: No Liver Disease: No Seizures: No Thyroid Disease: No - Surgical History Abdominal Surgery: Yes (MYOMECTOMY) Appendectomy: No Cardiac Surgery: No Cholecystectomy: No Lung Surgery: No Neurologic Surgery: No Orthopedic Surgery: No - Reproductive History PID: No - Suicide/Smoking/Psychosocial Hx Smoking History: Never smoked Have you smoked in the past 12 months: No Cigars Per Day: 0 Information on smoking cessation initiated: No 'Breaking Loose' booklet given: 05/14/17 Hx Alcohol Use: No Drug/Substance Use Hx: No Substance Use Type: Alcohol Hx Substance Use Treatment: No <Demarcus Elizondo - Last Filed: 11/05/17 21:50> - Past Medical History Allergies/Adverse Reactions: Allergies Allergy/AdvReac Type Severity Reaction Status Date / Time No Known Allergies Allergy Verified 11/05/17 16:52 Home Medications: Ambulatory Orders Metoprolol Succinate [Toprol Xl -] 12.5 mg PO DAILY 08/16/16 Triamterene/Hydrochlorothiazid [Maxzide 37.5 mg-25 mg Tablet] 1 each PO DAILY Review of Systems - Review of Systems Comments:: 11/05/17 17:46 GENERAL/CONSTITUTIONAL: +fever +chills. No weakness. HEAD, EYES, EARS, NOSE AND THROAT: No change in vision. No sore throat. CARDIOVASCULAR: No chest pain or shortness of breath RESPIRATORY: No cough, wheezing, or hemoptysis. GASTROINTESTINAL: + nausea, vomiting. No diarrhea or constipation. GENITOURINARY: No dysuria, frequency, or change in urination. MUSCULOSKELETAL: + R shoulder pain. No neck or back pain. SKIN: No rash NEUROLOGIC: No headache, vertigo, loss of consciousness, or change in strength/ sensation. ENDOCRINE: No increased thirst. No abnormal weight change HEMATOLOGIC/LYMPHATIC: No anemia, easy bleeding, or history of blood clots. ALLERGIC/IMMUNOLOGIC: No hives or skin allergy. <Demarcus Elizondo - Last Filed: 11/05/17 21:50> *Physical Exam - Vital Signs Last Vital Signs Temp Pulse Resp BP Pulse Ox 98.9 F 119 H 19 168/108 100 11/05/17 16:50 11/05/17 16:50 11/05/17 16:50 11/05/17 16:50 11/05/17 16:50 <Julissa Dunn - Last Filed: 11/05/17 19:25> - Vital Signs Last Vital Signs Temp Pulse Resp BP Pulse Ox 98.9 F 119 H 19 168/108 100 11/05/17 16:50 11/05/17 16:50 11/05/17 16:50 11/05/17 16:50 11/05/17 16:50 - Physical Exam Comments: 11/05/17 17:47 GENERAL: Awake, alert, and fully oriented, tearful, tremulous HEAD: No signs of trauma, normocephalic, atraumatic EYES: PERRLA, EOMI, sclera incteric, left sided discharge ENT: Auricles normal inspection, hearing grossly normal, nares patent, oropharynx clear without exudates. Moist mucosa NECK: Normal ROM, supple, no lymphadenopathy, JVD, or masses LUNGS: No distress, speaks full sentences, clear to auscultation bilaterally HEART: Tachycardic, normal S1 and S2, no murmurs, rubs or gallops, peripheral pulses normal and equal bilaterally. ABDOMEN: +suprapubic tenderness, +ruq tenderness, +R CVA tenderness EXTREMITIES: Normal inspection, Normal range of motion, no edema. No clubbing or cyanosis. NEUROLOGICAL: Cranial nerves II through XII grossly intact. Normal speech, no focal sensorimotor deficits SKIN: Warm, Dry, normal turgor, no rashes or lesions noted. <Demarcus Elizondo - Last Filed: 11/05/17 21:50> ED Treatment Course - LABORATORY CBC & Chemistry Diagram: 11/05/17 17:47 11/05/17 17:47 - ADDITIONAL ORDERS Additional order review: Laboratory Results 11/05/17 11/05/17 11/05/17 17:47 17:47 17:47 Sodium 143 Potassium 3.5 Chloride 107 Carbon Dioxide 22 Anion Gap 14 BUN 8 Creatinine 1.4 H Creat Clearance w eGFR 40.31 Random Glucose 115 H Calcium 9.2 Total Bilirubin 1.1 H AST 40 H ALT 20 Alkaline Phosphatase 59 Creatine Kinase 257 H Creatine Kinase Index 1.2 CK-MB (CK-2) 3.31 Troponin I 0.24 H Total Protein 7.8 Albumin 3.7 Lipase 101 Urine Color Urine Appearance Urine pH Ur Specific [place] Urine Protein Urine Glucose (UA) Urine Ketones Urine Blood Urine Nitrite Urine Bilirubin Urine Urobilinogen Ur Leukocyte Esterase Urine WBC (Auto) Urine RBC (Auto) Ur Epithelial Cells Urine Bacteria Hyaline Casts Urine Mucus Alcohol, Quantitative < 5.0 11/05/17 17:47 Sodium Potassium Chloride Carbon Dioxide Anion Gap BUN Creatinine Creat Clearance w eGFR Random Glucose Calcium Total Bilirubin AST ALT Alkaline Phosphatase Creatine Kinase Creatine Kinase Index CK-MB (CK-2) Troponin I Total Protein Albumin Lipase Urine Color [place] Urine Appearance Cloudy Urine pH 5.0 Ur Specific [place] 1.023 Urine Protein 2+ H Urine Glucose (UA) 1+ H Urine Ketones Trace H Urine Blood 1+ H Urine Nitrite Negative Urine Bilirubin Negative Urine Urobilinogen Negative Ur Leukocyte Esterase Negative Urine WBC (Auto) 7 Urine RBC (Auto) 3 Ur Epithelial Cells Few Urine Bacteria Rare Hyaline Casts 22 Urine Mucus Many Alcohol, Quantitative 11/05/17 17:47 RBC 4.14 MCV 77.0 L MCHC 31.3 L RDW 33.0 H MPV 7.6 D Neutrophils % 78.9 D Lymphocytes % 11.6 D Monocytes % 8.3 Eosinophils % 0.1 D Basophils % 1.1 - Medications Given in the ED: ED Medications Discontinued Medications Generic Name Dose Route Start Last Admin Trade Name Virgilio PRN Reason Stop Dose Admin Hydromorphone HCl 1 mg 11/05/17 17:28 11/05/17 17:58 Dilaudid Injection - IVPUSH 11/05/17 17:29 Not Given ONCE ONE Sodium Chloride 1,000 mls @ 1,000 mls/hr 11/05/17 17:28 11/05/17 18:07 Normal Saline - IV 11/05/17 18:27 1,000 mls/hr ASDIR STA Administration Lorazepam 1 mg 11/05/17 17:51 11/05/17 18:07 Ativan Injection - IVPUSH 11/05/17 17:52 1 mg ONCE ONE Administration Morphine Sulfate 2 mg 11/05/17 17:51 11/05/17 18:07 Morphine Injection - IVPUSH 11/05/17 17:52 2 mg ONCE ONE Administration Ondansetron HCl 4 mg 11/05/17 17:28 11/05/17 18:07 Zofran Injection IVPUSH 11/05/17 17:29 4 mg ONCE ONE Administration - Consult/PCP Time Called: 19:25 (Paged Dr. Mayorga - Cardiology) <Julissa Dunn - Last Filed: 11/05/17 19:25> - LABORATORY CBC & Chemistry Diagram: 11/05/17 17:47 11/05/17 17:47 - RADIOLOGY Radiology Studies Ordered: Category Date Time Status ABDOMEN US -LIMITED [US] Stat Ultrasound 11/05/17 17:30 Ordered <Demarcus Elizondo - Last Filed: 11/05/17 21:50> Medical Decision Making - Medical Decision Making 11/05/17 17:53 Patient is a 47F with history of alcohol abuse and HTN here today with abdominal pain. Vital signs notable for tachycardia and elevated blood pressure. PE notable for pain to RUQ, R CVA and suprapubic tenderness. DDx includes, but is not limited to: cholecystitis, pyelo, pancreatitis, alcohol withdrawal. Will evaluate with abdominal labs, ua/uc, trop, ekg, cxr, RUQ US. Likely admission. 11/05/17 18:37 Patient's left eye has discharge, will cover with oflaxicin. 11/05/17 19:16 EKG shows normal sinus rhythm with rate of 93. No st elevaions/depressions. T wave inversion in III. QTc prolonged to 499.. Normal axis. Normal [place]/QRS intervals. 11/05/17 19:18 Laboratory Tests 11/05/17 11/05/17 11/05/17 17:47 17:47 17:47 WBC 12.7 H Hgb 10.0 L Plt Count 339 BUN 8 Creatinine 1.4 H Troponin I Urine Protein 2+ H Urine Glucose (UA) 1+ H Urine Ketones Trace H Urine Blood 1+ H Urine WBC (Auto) 7 Alcohol, Quantitative 11/05/17 11/05/17 17:47 17:47 WBC Hgb Plt Count BUN Creatinine Troponin I 0.24 H Urine Protein Urine Glucose (UA) Urine Ketones Urine Blood Urine WBC (Auto) Alcohol, Quantitative < 5.0 CBC shows leukocytosis, no anemia. Cr elevated to 1.4, prior 0.8. UA shows protein, glucose, ketones, blood. Troponin of 0.24. Alcohol negative. Given aspirin for elevated troponin. No chest pain. Very atypical ACS story, but will admit and consult cardiology. 11/05/17 19:31 Dr Renteria consulted, will give patient lipitor 80 in addition to aspirin. Will admit to tele. Pending US. 11/05/17 20:38 US negative. 11/05/17 21:[address] Delgado <Demarcus Elizondo - Last Filed: 11/05/17 21:50> *DC/Admit/Observation/Transfer <Julissa Dunn - Last Filed: 11/05/17 19:25> - Discharge Dispostion Decision to Admit order: Yes <Demarcus Elizondo - Last Filed: 11/05/17 21:50> Diagnosis at time of Disposition: Troponin level elevated - Discharge Dispostion Condition at time of disposition: Stable
[2017-11-05] MEDS ORDERED: morphine CARPU-JECT 2 MG/1 ML DISP.SYRIN IVPUSH ONE (17:51)
[2017-11-05] MEDS ORDERED: ONDANSETRON 4 MG/2 ML VIAL ONE (18:01)
[2017-11-05] MEDS ORDERED: MORPHINE SULFATE 2 MG/ML VIAL ONE (18:01)
[2017-11-05] MEDS ORDERED: LORazepam 2 MG/ML SDV VIAL ONE (18:01)
[2017-11-05 18:03] LABS: BASO % 1.1 % (0-2.0); EOS % 0.1 % (0-4.5); HEMATOCRIT 31.9 % (32.4-45.2); LYMPH % 11.6 % (8-40); MCH 24.1 pg (25.7-33.7); MCHC 31.3 g/dl (32.0-36.0); MEAN PLT VOLUME 7.6 fl (7.5-11.1); MONO % 8.3 % (3.8-10.2); NEUT % 78.9 % (42.8-82.8); PLATELET COUNT 339 K/MM3 (134-434); RBC 4.14 M/mm3 (3.60-5.2); WHITE BLOOD COUNT 12.7 K/mm3 (4.0-10.0)
[2017-11-05 18:31] LABS: ALBUMIN 3.7 g/dl (3.4-5.0); ALK PHOS 59 U/L (45-117); ANION GAP 14 (8-16); BILIRUBIN,TOTAL 1.1 mg/dL (0.2-1.0); BLOOD UREA NITROGEN 8 mg/dL (7-18); CALCIUM 9.2 mg/dL (8.5-10.1); CHLORIDE 107 mmol/L (98-107); CO2 22 mmol/L (21-32); CREATININE 1.4 mg/dL (0.55-1.02); GLUCOSE,RANDOM 115 mg/dL (74-106); LIPASE 101 U/L (73-393); POTASSIUM 3.5 mmol/L (3.5-5.1); SGOT/AST 40 U/L (15-37); SGPT/ALT 20 U/L (12-78); SODIUM 143 mmol/L (136-145); TOT PROT 7.8 g/dl (6.4-8.2)
[2017-11-05 18:56] LABS: URINE APPEARANCE CLOUDY; URINE BILIRUBIN NEGATIVE (<2.0 mg/dL); URINE COLOR AMBER; URINE GLUCOSE (UA) 1+ (NEGATIVE); URINE KETONE TRACE (NEGATIVE); URINE LEUK ESTERASE NEGATIVE (NEGATIVE); URINE NITRITE NEGATIVE (NEGATIVE); URINE PROTEIN 2+ (NEGATIVE); URINE UROBILINOGEN NEGATIVE mg/dL (0.2-1.0)
[2017-11-05 18:59] LABS: EPI CELLS FEW /HPF (FEW); URINE BACTERIA RARE /hpf (NONE SEEN); URINE HYALINE CAST 22 /lpf; URINE MUCUS MANY
[2017-11-05] MEDS ORDERED: ASPIRIN 81 MG CHEWABLE TABLETS PO ONE (19:11)
[2017-11-05] MEDS ORDERED: ATORVASTATIN CA 80 MG TABLET (FP) PO ONE (19:29)
--- NOTE | 2017-11-05 19:41 | PDOC ---
Attending Attestation - Resident Resident Name: VickeyDemarcus nance - ED Attending Attestation I have performed the following: I have examined & evaluated the patient, The case was reviewed & discussed with the resident, I agree w/resident's findings & plan, Exceptions are as noted - HPI HPI: 47 yo F history alcohol abuse presents with RUQ and epigastric abd pain, vomiting for the past 5 days. She states she feels ill, has not been able to eat anything. Her last drink was 3 days ago. She notes shaking in her hands. No fever, chills. - Physicial Exam PE: GENERAL: Awake, alert, and fully oriented. Appears anxious. Tearful. HEAD: No signs of trauma EYES: PERRLA, EOMI, sclera anicteric, conjunctiva clear ENT: Auricles normal inspection, hearing grossly normal, nares patent, oropharynx clear without exudates. Dry mucosa NECK: Normal ROM, supple, no lymphadenopathy, JVD, or masses LUNGS: Breath sounds equal, clear to auscultation bilaterally. No wheezes, and no crackles HEART: Tachycardic with regular rate and rhythm, normal S1 and S2, no murmurs, rubs or gallops ABDOMEN: Soft, +RUQ and epigastric tenderness, normoactive bowel sounds. + Guarding, no rebound. No masses EXTREMITIES: Normal range of motion, no edema. No clubbing or cyanosis. No cords , erythema, or tenderness. +Fine tremors to the hands B/L. NEUROLOGICAL: Cranial nerves II through XII grossly intact. Normal speech, normal gait. SKIN: Warm, Dry, normal turgor, no rashes or lesions noted. - Medical Decision Making Pt with epigastric and RUQ pain, vomiting for the past 5 days. Labs sent to r/o MO, pancreatitis. Will obtain sono to evaluate the RUQ tenderness.
[2017-11-05 21:17] LABS: PLATELET ESTIMATE ADEQUATE
--- NOTE | 2017-11-05 22:38 | PN ---
Teaching Attending Note Name of Resident: Brendan Delgado ATTENDING PHYSICIAN STATEMENT I saw and evaluated the patient. I reviewed the resident's note and discussed the case with the resident. I agree with the resident's findings and plan as documented. SUBJECTIVE: Patient is a 47 year old woman with history of alcoholism (multiple admissions for detox, no seizures, last drink "weeks" ago) and HTN here today complaining of 1 day of right sided/flank abdominal pain with radiation to her right shoulder. She woke up with the pain. Denies trauma. Also started shaking about the same time. Denies dysuria. Last drink was 5 days ago. Has been told about occluded coronary artery. Denies blood in vomit. Denies prior abdominal surgery. Denies having similar episodes in the past. Patient describe the pain as a stabbing. Denies chest pain, shortness of breath. OBJECTIVE: Alert, tremulous and emotionally labile but eating a large portion of [employer] Vital Signs Period Temp Pulse Resp BP Sys/Arevalo Pulse Ox Last 24 Hr 98.9 F 119 19 168/108 100 HEENT: No Jaundice or discharge; conjunctival injection, PERRLA, EOMI. Normocephalic, atraumatic. External ears are normal and hearing is grossly intact. No nasal discharge. Neck: Supple, nontender. No palpable adenopathy or thyromegaly. No JVD Chest: Good effort. Clear to auscultation and percussion. Heart: Regular. No S3, rub or murmur Abdomen: Not distended, soft, RUQ/Right CVA tenderness and no HSM. No rebound or guarding. Normoactive bowel sounds. Ext: Peripheral pulses intact. No leg edema. Skin: Warm and dry. No petechiae, rash or ecchymosis. Neuro: Alert. Oriented x3. CN 2-12 grossly intact. Sensation grossly intact in all four extremities and DTR are symmetric. Current Medications Generic Name Dose Route Start Last Admin Trade Name Freq PRN Reason Stop Dose Admin Ofloxacin 1 drop 11/05/17 18:45 Ocuflox 0.3% Eye Drops - OS Q2H DORON Home Medications Medication Instructions Recorded Metoprolol Succinate [Toprol Xl -] 12.5 mg PO DAILY 08/16/16 Triamterene/Hydrochlorothiazid 1 each PO DAILY 08/16/16 [Maxzide 37.5 mg-25 mg Tablet] Abnormal Lab Results 11/05/17 11/05/17 11/05/17 17:47 17:47 17:47 WBC 12.7 H Hgb 10.0 L Hct 31.9 L D MCV 77.0 L MCH 24.1 L D MCHC 31.3 L RDW 33.0 H Creatinine 1.4 H Random Glucose 115 H Total Bilirubin 1.1 H AST 40 H Creatine Kinase Troponin I Urine Protein 2+ H Urine Glucose (UA) 1+ H Urine Ketones Trace H Urine Blood 1+ H 11/05/17 17:47 WBC Hgb Hct MCV MCH MCHC RDW Creatinine Random Glucose Total Bilirubin AST Creatine Kinase 257 H Troponin I 0.24 H Urine Protein Urine Glucose (UA) Urine Ketones Urine Blood ASSESSMENT AND PLAN: 1. Cholecystitis? - Pending the results of the sonogram, will treat with Zosyn for possible cholecystitis. Consult GI and Surgery. Trend LFTs 2. Elevated troponin - Will monitor on telemetry and rule out ACS. No EKG evidence of ACS at this time. Trend troponin. 3. Low MCV anemia - Rule out iron def/GI blood loss. Do basic anemia work up including serial stool guaiacs, reticulocyte count and iron studies. GI consult for colonoscopy. Get Hb electrophoresis. 4. Alcohol abuse/Withdrawal - Implement [facility] alcohol withdrawal protocol and fall precautions. Treat with thiamine and folic acid and monitor electrolytes (Ca,Mg,K,P). [employer] patient about abstaining from alcohol and refer to alcohol detox upon discharge. 5. Tobacco Use We will provide patient all the necessary assistance to facilitate smoking cessation and prescribe Nicotine patch. 6. CKD? - Has proteinuria as well as risk factors for CKD. Will consult nephrology and avoid nephrotoxic agents such as NSAIDS, aminoglycosides, contrast dyes and certain Alternative medicine products. 7. Uncontrolled hypertension - Restart his home antihypertensive drugs and stress low salt diet and exercise. 8. DVT prophylaxis - Heparin 5000u sq tid. 9. Advance directives - Full code
[2017-11-05] MEDS ORDERED: ASPIRIN 81 MG CHEWABLE TABLETS ONE (23:09)
[2017-11-05] MEDS ORDERED: ATORVASTATIN CA 80 MG TABLET (FP) ONE (23:10)
[2017-11-06] MEDS ORDERED: FOLIC ACID INJECTION - 1 MG, THIAMINE HCL 100 MG, MULTIVIT INJECTION ADULT 10 ML in SOD... IVPB ONE (01:53)
[2017-11-06] MEDS ORDERED: chlordiazePOXIDE HCL 25 MG CAPSULE PO PRN (02:02)
[2017-11-06] MEDS ORDERED: chlordiazePOXIDE HCL 25 MG CAPSULE PO ONE (02:02)
--- NOTE | 2017-11-06 04:38 | HP ---
CHIEF COMPLAINT: Trembling and R. sided abdominal pain PCP: HISTORY OF PRESENT ILLNESS: Trembling started this morning, followed by pain in the abdomen and then by a stiffening pain in the chest. Pt. describes the pain as sharp and moving from the abdomen to the right shoulder. Pt. says she has not had a BM in 5 days. Pt. denies having an appetite to eat( had a half eaten box of [facility] and sides next to her). Pt. endorses vomiting 4x but denies the presence of blood. She says this has never happened before. Endorses feeling nauseous, weak and inablity to walk. Pt. says she feels like she fell. Neighbor ER course was notable for: (1)CXR (2)Abd US-Negative for (3) Recent Travel: Did Not Ask PAST MEDICAL HISTORY: HTN, EthoH Abuse- last drink was 4 days ago( 2 [employer]) PAST SURGICAL HISTORY: Myomectomy (2005), "surgery on the throat b/c vomiting blood" Social History: Smoking: No Alcohol: 1 bottle of vodka/ day Drugs: No Family History: Allergies No Known Allergies Allergy (Verified 11/05/17 16:52) HOME MEDICATIONS: Home Medications Medication Instructions Recorded Metoprolol Succinate [Toprol Xl -] 12.5 mg PO DAILY 08/16/16 Triamterene/Hydrochlorothiazid 1 each PO DAILY 08/16/16 [Maxzide 37.5 mg-25 mg Tablet] REVIEW OF SYSTEMS CONSTITUTIONAL: generalized weakness, malaise, loss of appetite Absent: fever, chills, diaphoresis, weight change HEENT: Absent: rhinorrhea, nasal congestion, throat pain, throat swelling, difficulty swallowing, mouth swelling, ear pain, eye pain, visual changes CARDIOVASCULAR: palpitations Absent: chest pain, syncope, irregular heart rate, lightheadedness, peripheral edema RESPIRATORY: shortness of breath Absent: cough, dyspnea with exertion, orthopnea, wheezing, stridor, hemoptysis GASTROINTESTINAL: Absent: abdominal pain, abdominal distension, nausea, vomiting, diarrhea, constipation, melena, hematochezia GENITOURINARY: Absent: dysuria, frequency, urgency, hesitancy, hematuria, flank pain, genital pain MUSCULOSKELETAL: Absent: myalgia, arthralgia, joint swelling, back pain, neck pain SKIN: Absent: rash, itching, pallor HEMATOLOGIC/IMMUNOLOGIC: Absent: easy bleeding, easy bruising, lymphadenopathy, frequent infections ENDOCRINE: Absent: unexplained weight gain, unexplained weight loss, heat intolerance, cold intolerance NEUROLOGIC: paresthesias, tingling, dizziness, unsteady gait Absent: headache, focal weakness or, seizure, mental status changes, bladder or bowel incontinence PSYCHIATRIC: anxiety, hallucinations Absent: depression, suicidal or homicidal ideation, PHYSICAL EXAMINATION Vital Signs - 24 hr 11/05/17 16:50 Temperature 98.9 F Pulse Rate 119 H Respiratory 19 Rate Blood Pressure 168/108 O2 Sat by Pulse 100 Oximetry (%) GENERAL: Awake, alert, anxious, crying, in mild distress. HEAD: Normal with no signs of trauma. LUNGS: Breath sounds equal, clear to auscultation bilaterally. No wheezes, and no crackles. No accessory muscle use. HEART: Regular rate and rhythm, normal S1 and S2 ABDOMEN: Soft, not distended, normoactive bowel sounds, Tender to palpation in RUQ, guarding, Uledi sign+ UPPER EXTREMITIES: 2/5 muscle strength-poor effort, warm, tremulous, No peripheral edema. LOWER EXTREMITIES: 5/5 muscle strength, warm, well-perfused. No calf tenderness. No peripheral edema. PSYCHIATRIC: Cooperative. Anxious. SKIN: Warm, dry, normal turgor Laboratory Results - last 24 hr 11/05/17 11/05/17 11/05/17 17:47 17:47 17:47 WBC 12.7 H RBC 4.14 Hgb 10.0 L Hct 31.9 L D MCV 77.0 L MCH 24.1 L D MCHC 31.3 L RDW 33.0 H Plt Count 339 MPV 7.6 D Absolute Neuts (auto) 10.1 Neutrophils % 78.9 D Lymphocytes % 11.6 D Monocytes % 8.3 Eosinophils % 0.1 D Basophils % 1.1 Nucleated RBC % 0 Platelet Estimate Adequate Platelet Comment Sodium 143 Potassium 3.5 Chloride 107 Carbon Dioxide 22 Anion Gap 14 BUN 8 Creatinine 1.4 H Creat Clearance w eGFR 40.31 Random Glucose 115 H Calcium 9.2 Total Bilirubin 1.1 H AST 40 H ALT 20 Alkaline Phosphatase 59 Creatine Kinase Creatine Kinase Index CK-MB (CK-2) Troponin I Total Protein 7.8 Albumin 3.7 Lipase 101 Serum , Qual Urine Color Doretha Urine Appearance Cloudy Urine pH 5.0 Ur Specific [place] 1.023 Urine Protein 2+ H Urine Glucose (UA) 1+ H Urine Ketones Trace H Urine Blood 1+ H Urine Nitrite Negative Urine Bilirubin Negative Urine Urobilinogen Negative Ur Leukocyte Esterase Negative Urine WBC (Auto) 7 Urine RBC (Auto) 3 Ur Epithelial Cells Few Urine Bacteria Rare Hyaline Casts 22 Urine Mucus Many Alcohol, Quantitative Blood Type Antibody Screen 11/05/17 11/05/17 11/05/17 17:47 17:47 17:47 WBC RBC Hgb Hct MCV MCH MCHC RDW Plt Count MPV Absolute Neuts (auto) Neutrophils % Lymphocytes % Monocytes % Eosinophils % Basophils % Nucleated RBC % Platelet Estimate Platelet Comment Sodium Potassium Chloride Carbon Dioxide Anion Gap BUN Creatinine Creat Clearance w eGFR Random Glucose Calcium Total Bilirubin AST ALT Alkaline Phosphatase Creatine Kinase 257 H Creatine Kinase Index 1.2 CK-MB (CK-2) 3.31 Troponin I 0.24 H Total Protein Albumin Lipase Serum , Qual Urine Color Urine Appearance Urine pH Ur Specific [place] Urine Protein Urine Glucose (UA) Urine Ketones Urine Blood Urine Nitrite Urine Bilirubin Urine Urobilinogen Ur Leukocyte Esterase Urine WBC (Auto) Urine RBC (Auto) Ur Epithelial Cells Urine Bacteria Hyaline Casts Urine Mucus Alcohol, Quantitative < 5.0 Blood Type O POSITIVE Antibody Screen Negative 11/06/17 02:47 WBC RBC Hgb Hct MCV MCH MCHC RDW Plt Count MPV Absolute Neuts (auto) Neutrophils % Lymphocytes % Monocytes % Eosinophils % Basophils % Nucleated RBC % Platelet Estimate Platelet Comment Sodium Potassium Chloride Carbon Dioxide Anion Gap BUN Creatinine Creat Clearance w eGFR Random Glucose Calcium Total Bilirubin AST ALT Alkaline Phosphatase Creatine Kinase Creatine Kinase Index CK-MB (CK-2) Troponin I Total Protein Albumin Lipase Serum , Qual Negative Urine Color Urine Appearance Urine pH Ur Specific [place] Urine Protein Urine Glucose (UA) Urine Ketones Urine Blood Urine Nitrite Urine Bilirubin Urine Urobilinogen Ur Leukocyte Esterase Urine WBC (Auto) Urine RBC (Auto) Ur Epithelial Cells Urine Bacteria Hyaline Casts Urine Mucus Alcohol, Quantitative Blood Type Antibody Screen ASSESSMENT/PLAN: 47 y.o F w/ PMHx. of HTN, EtOH abuse, s/p myomectomy(2005) and s/p surgery on her throat for upper GI bleeding, presents w/ right sided abdominal/ flank pain and trembling in her hands #Abdominal/Flank Pain - f/u CT- Chest/Abdomen/Pelvis - Abd. US negative for biliary disease - consider consulting GI #CKD - IVF - elevated Cr. - Hx. of non-compliant HTN #Elevated Troponins - Trop: 0.24 - f/u Rpt EKG - f/u Rpt Trop - consider echo if CT comes back indeterminate #EtOH Abuse - Librium Protocol - Ciwa Score 21? as calculated by Dr. Delgado #Anemia - f/u Iron studies - f/u stool guiac x 3 - f/u Hgb electrophoresis - f/u reticulocyte count - f/u Rpt. #HTN - restarted Metoprolol 12.5mg - hold triamterene/ HCTZ because of elevated Cr. #Dispo - admit to telemetry #DVT PPx. - per Dr. Mayorga, hold heparin, resume ASA 81. Visit type - Emergency Visit Emergency Visit: Yes ED Registration Date: 11/05/17 Care time: The patient presented to the Emergency Department on the above date and was hospitalized for further evaluation of their emergent condition. - New Patient This patient is new to me today: Yes Date on this admission: 11/06/17 - Critical Care Critical Care patient: No Hospitalist Screening - Colonoscopy Questionnaire Colonoscopy Questionnaire: Colonoscopy Questionnaire - Patient: 50 - 75 years old and never had a screening colonoscopy: No History of colon or rectal polyps, or CA: Unknown History of IBD, Crohn's disease or UC: No History of abdominal radiation therapy as a child: No - Relative: 1 with colon or rectal CA, or polyps at age 60 or younger: Unknown Colon or rectal CA diagnosed at age 45 or younger: Unknown Multiple relatives with colon or rectal CA: Unknown - Outcome: Screening Result: Negative Screen
[2017-11-06 07:10] LABS: BASO % 1.9 % (0-2.0); EOS % 0.5 % (0-4.5); HEMATOCRIT 28.9 % (32.4-45.2); HEMOGLOBIN 9.2 GM/dL (10.7-15.3); LYMPH % 26.6 % (8-40); MCH 24.8 pg (25.7-33.7); MCHC 31.9 g/dl (32.0-36.0); MEAN CELL VOLUME 77.7 fl (80-96); MONO % 8.5 % (3.8-10.2); NEUT % 62.5 % (42.8-82.8); PLATELET COUNT 247 K/MM3 (134-434); RBC 3.72 M/mm3 (3.60-5.2); RDW 32.5 % (11.6-15.6)
[2017-11-06 07:15] LABS: ADD RBC MORPHOLOGY YES
[2017-11-06 07:19] LABS: INR 1.06 (0.82-1.09)
[2017-11-06] MEDS ORDERED: DEXTROSE 5%-NORMAL SALINE 1,000 ML IV SCH (08:15)
[2017-11-06 08:33] LABS: ANISOCYTOSIS 3+
[2017-11-06 08:34] LABS: PLATELET ESTIMATE ADEQUATE
--- NOTE | 2017-11-06 08:34 | EKG ---
Test Reason : Blood Pressure : / mmHG Vent. Rate : 093 BPM Atrial Rate : 093 BPM P-R Int : 144 ms QRS Dur : 078 ms QT Int : 402 ms P-R-T Axes : 041 -07 -17 degrees QTc Int : 499 ms NORMAL SINUS RHYTHM PROLONGED QT ABNORMAL ECG WHEN COMPARED WITH ECG OF 14-MAY-2017 18:29, ST NOW DEPRESSED IN ANTERIOR LEADS Confirmed by BELEM POON, ROSARIO ([id number]) on 11/06/2017 8:34:22 AM Referred By: Confirmed By:ROSARIO PATRICIA MD
[2017-11-06 08:37] LABS: CHLORIDE 103 mmol/L (98-107); SODIUM 141 mmol/L (136-145)
[2017-11-06] MEDS ORDERED: chlordiazePOXIDE HCL 25 MG CAPSULE ONE ×2 (08:44→12:25)
[2017-11-06] MEDS: DEXTROSE 5%-NORMAL SALINE 1,000 ML IV SCH (08:49)
[2017-11-06] MEDS: chlordiazePOXIDE HCL 25 MG CAPSULE PO SCH ×4 (08:50→22:45)
[2017-11-06 09:12] LABS: ALBUMIN 3.2 g/dl (3.4-5.0); ALK PHOS 56 U/L (45-117); ANION GAP 9 (8-16); BILIRUBIN,TOTAL 1.4 mg/dL (0.2-1.0); BLOOD UREA NITROGEN 10 mg/dL (7-18); CALCIUM 8.4 mg/dL (8.5-10.1); CO2 29 mmol/L (21-32); CREATININE 1.2 mg/dL (0.55-1.02); GLUCOSE,RANDOM 98 mg/dL (74-106); MAGNESIUM 1.7 mg/dL (1.8-2.4); PHOSPHOROUS 2.9 mg/dL (2.5-4.9); SGOT/AST 44 U/L (15-37); SGPT/ALT 21 U/L (12-78); TOT PROT 6.8 g/dl (6.4-8.2)
[2017-11-06 09:16] LABS: POTASSIUM 2.8 mmol/L (3.5-5.1)
[2017-11-06] MEDS ORDERED: metoPROLOL SUCCINATE 25 MG TAB.SR.24H (FP) PO SCH (10:00)
[2017-11-06] MEDS ORDERED: MAGNESIUM SULF 50% (8.12 MEQ/2 ML-1 GM VIAL) IVPB ONE (10:28)
--- NOTE | 2017-11-06 10:38 | PN ---
Physical Exam: SUBJECTIVE: Patient seen and examined, tearful, asking to eat. NO chest pain, dyspnea, palpitations, dizziness noted. Reports right sided abdominal pain. no nausea, vomiting. Pain started yesterday, sharp,constant no real exacerbating or relieving factors, tolerating diet well. Also c/o shaking/tremors, anxiety. Reports last drink 4-5 days ago. Pain in the back of the head, unclear if fell. OBJECTIVE: Vital Signs Period Temp Pulse Resp BP Sys/Arevalo Pulse Ox Last 24 Hr 98.9 F 76-119 17-20 149-168/102-108 100-100 GENERAL:sitting in bed, tearful,no acute distress Chest: CTAB, no rales or wheezing Abdomen:soft, Right lateral abdominal wall tenderness, no RUQ tenderness, no cVA tenderness, neg Orourke's sign, no voluntary or involuntary guarding or rigidity, positive bowel sounds HEENT: small area of tenderness over back of small, no swelling/erythema or bleeding noted Extremities: no edema or tenderness, mild fine tremors Laboratory Results - last 24 hr 11/05/17 11/05/17 11/05/17 17:47 17:47 17:47 WBC 12.7 H RBC 4.14 Hgb 10.0 L Hct 31.9 L D MCV 77.0 L MCH 24.1 L D MCHC 31.3 L RDW 33.0 H Plt Count 339 MPV 7.6 D Absolute Neuts (auto) 10.1 Neutrophils % 78.9 D Lymphocytes % 11.6 D Monocytes % 8.3 Eosinophils % 0.1 D Basophils % 1.1 Nucleated RBC % 0 Hypochromia Platelet Estimate Adequate Platelet Comment Polychromasia Anisocytosis Microcytosis Retic Count PT with INR INR PTT (Actin FS) Sodium 143 Potassium 3.5 Chloride 107 Carbon Dioxide 22 Anion Gap 14 BUN 8 Creatinine 1.4 H Creat Clearance w eGFR 40.31 Random Glucose 115 H Hemoglobin A1c % Calcium 9.2 Phosphorus Magnesium Ferritin Total Bilirubin 1.1 H AST 40 H ALT 20 Alkaline Phosphatase 59 Creatine Kinase Creatine Kinase Index CK-MB (CK-2) Troponin I Total Protein 7.8 Albumin 3.7 Lipase 101 Vitamin B12 Serum , Qual Urine Color Doretha Urine Appearance Cloudy Urine pH 5.0 Ur Specific [place] 1.023 Urine Protein 2+ H Urine Glucose (UA) 1+ H Urine Ketones Trace H Urine Blood 1+ H Urine Nitrite Negative Urine Bilirubin Negative Urine Urobilinogen Negative Ur Leukocyte Esterase Negative Urine WBC (Auto) 7 Urine RBC (Auto) 3 Ur Epithelial Cells Few Urine Bacteria Rare Hyaline Casts 22 Urine Mucus Many Alcohol, Quantitative Blood Type Antibody Screen 11/05/17 11/05/17 11/05/17 17:47 17:47 17:47 WBC RBC Hgb Hct MCV MCH MCHC RDW Plt Count MPV Absolute Neuts (auto) Neutrophils % Lymphocytes % Monocytes % Eosinophils % Basophils % Nucleated RBC % Hypochromia Platelet Estimate Platelet Comment Polychromasia Anisocytosis Microcytosis Retic Count PT with INR INR PTT (Actin FS) Sodium Potassium Chloride Carbon Dioxide Anion Gap BUN Creatinine Creat Clearance w eGFR Random Glucose Hemoglobin A1c % Calcium Phosphorus Magnesium Ferritin Total Bilirubin AST ALT Alkaline Phosphatase Creatine Kinase 257 H Creatine Kinase Index 1.2 CK-MB (CK-2) 3.31 Troponin I 0.24 H Total Protein Albumin Lipase Vitamin B12 Serum , Qual Urine Color Urine Appearance Urine pH Ur Specific [place] Urine Protein Urine Glucose (UA) Urine Ketones Urine Blood Urine Nitrite Urine Bilirubin Urine Urobilinogen Ur Leukocyte Esterase Urine WBC (Auto) Urine RBC (Auto) Ur Epithelial Cells Urine Bacteria Hyaline Casts Urine Mucus Alcohol, Quantitative < 5.0 Blood Type O POSITIVE Antibody Screen Negative 11/06/17 11/06/17 11/06/17 02:47 06:10 06:10 WBC RBC Hgb Hct MCV MCH MCHC RDW Plt Count MPV Absolute Neuts (auto) Neutrophils % Lymphocytes % Monocytes % Eosinophils % Basophils % Nucleated RBC % Hypochromia Platelet Estimate Platelet Comment Polychromasia Anisocytosis Microcytosis Retic Count 0.64 PT with INR INR PTT (Actin FS) Sodium Potassium Chloride Carbon Dioxide Anion Gap BUN Creatinine Creat Clearance w eGFR Random Glucose Hemoglobin A1c % Calcium Phosphorus Magnesium Ferritin Total Bilirubin AST ALT Alkaline Phosphatase Creatine Kinase Creatine Kinase Index CK-MB (CK-2) Troponin I Total Protein Albumin Lipase Vitamin B12 Cancelled Serum , Qual Negative Urine Color Urine Appearance Urine pH Ur Specific [place] Urine Protein Urine Glucose (UA) Urine Ketones Urine Blood Urine Nitrite Urine Bilirubin Urine Urobilinogen Ur Leukocyte Esterase Urine WBC (Auto) Urine RBC (Auto) Ur Epithelial Cells Urine Bacteria Hyaline Casts Urine Mucus Alcohol, Quantitative Blood Type Antibody Screen 11/06/17 11/06/17 11/06/17 06:10 06:10 06:10 WBC 7.0 RBC 3.72 Hgb 9.2 L Hct 28.9 L MCV 77.7 L MCH 24.8 L MCHC 31.9 L RDW 32.5 H Plt Count 247 D MPV 8.0 Absolute Neuts (auto) 4.4 Neutrophils % 62.5 D Lymphocytes % 26.6 D Monocytes % 8.5 Eosinophils % 0.5 D Basophils % 1.9 Nucleated RBC % 0 Hypochromia 1+ Platelet Estimate Adequate Platelet Comment No clumping noted Polychromasia 1+ Anisocytosis 3+ Microcytosis 2+ Retic Count PT with INR INR PTT (Actin FS) Sodium 141 Potassium 2.8 L* Chloride 103 Carbon Dioxide 29 Anion Gap 9 BUN 10 Creatinine 1.2 H Creat Clearance w eGFR 48.15 Random Glucose 98 Hemoglobin A1c % 4.7 L Calcium 8.4 L Phosphorus 2.9 Magnesium 1.7 L Ferritin 34.4 Total Bilirubin 1.4 H AST 44 H ALT 21 Alkaline Phosphatase 56 Creatine Kinase Creatine Kinase Index CK-MB (CK-2) Troponin I Total Protein 6.8 Albumin 3.2 L Lipase Vitamin B12 339 Serum , Qual Urine Color Urine Appearance Urine pH Ur Specific [place] Urine Protein Urine Glucose (UA) Urine Ketones Urine Blood Urine Nitrite Urine Bilirubin Urine Urobilinogen Ur Leukocyte Esterase Urine WBC (Auto) Urine RBC (Auto) Ur Epithelial Cells Urine Bacteria Hyaline Casts Urine Mucus Alcohol, Quantitative Blood Type Antibody Screen 11/06/17 11/06/17 06:10 06:10 WBC RBC Hgb Hct MCV MCH MCHC RDW Plt Count MPV Absolute Neuts (auto) Neutrophils % Lymphocytes % Monocytes % Eosinophils % Basophils % Nucleated RBC % Hypochromia Platelet Estimate Platelet Comment Polychromasia Anisocytosis Microcytosis Retic Count PT with INR 12.00 INR 1.06 PTT (Actin FS) 28.0 Sodium Potassium Chloride Carbon Dioxide Anion Gap BUN Creatinine Creat Clearance w eGFR Random Glucose Hemoglobin A1c % Calcium Phosphorus Magnesium Ferritin Total Bilirubin AST ALT Alkaline Phosphatase Creatine Kinase 256 H Creatine Kinase Index 1.4 CK-MB (CK-2) 3.69 H Troponin I 0.31 H Total Protein Albumin Lipase Vitamin B12 Serum , Qual Urine Color Urine Appearance Urine pH Ur Specific [place] Urine Protein Urine Glucose (UA) Urine Ketones Urine Blood Urine Nitrite Urine Bilirubin Urine Urobilinogen Ur Leukocyte Esterase Urine WBC (Auto) Urine RBC (Auto) Ur Epithelial Cells Urine Bacteria Hyaline Casts Urine Mucus Alcohol, Quantitative Blood Type Antibody Screen Active Medications Generic Name Dose Route Start Last Admin Trade Name Freq PRN Reason Stop Dose Admin Chlordiazepoxide HCl 50 mg 11/06/17 05:00 Librium - PO 11/06/17 23:01 [id number] DORON Chlordiazepoxide HCl 25 mg 11/07/17 05:00 Librium - PO 11/07/17 23:01 [id number] DORON Chlordiazepoxide HCl 15 mg 11/08/17 05:00 Librium - PO 11/08/17 23:01 [id number] DORON Chlordiazepoxide HCl 25 mg 11/06/17 02:02 Librium - PO 11/09/17 02:01 Q4H PRN WITHDRAWAL(CONT SUBST) Folic Acid 1 mg 11/06/17 10:00 Folic Acid - PO DAILY [facility] Heparin Sodium (Porcine) 500 unit 11/06/17 10:00 Heparin - SQ Q8H-IV DORON Dextrose/Sodium Chloride 1,000 mls @ 100 mls/hr 11/06/17 08:15 11/06/17 08:49 D5-Ns - IV 100 mls/hr ASDIR DORON Administration Potassium Chloride 10 meq in 100 mls @ 100 mls/hr 11/06/17 10:30 Potassium Chloride 10 Meq Premix Ivpb - IVPB 11/06/17 13:29 Q60M DORON Magnesium Sulfate 2 gm 11/06/17 10:28 Magnesium Sulfate IVPB 11/06/17 10:29 ONCE ONE Metoprolol Tartrate 25 mg 11/06/17 10:30 Lopressor - PO BID [facility] Ofloxacin 1 drop 11/05/17 18:45 Ocuflox 0.3% Eye Drops - OS Q2H DORON Thiamine HCl 100 mg 11/06/17 10:00 Vitamin B1 - PO DAILY [facility] RUQ US noted CT A/P results pending ASSESSMENT/PLAN: 47 yof with PMHx of ETOH abuse/multiple prior admissions for detox, HTN, admitted with tremors, Right sided abdominal pain, found with Elevated troponin and Electrolyte abnormalities. -Abdominal pain, right lateral wall, neg Orourke's, low suspicion for gall bladder disease -Acute alcohol withdrawal -NSTEMI, ?Demand from above, r/o ACS -UNcontrolled HTN, likely from non compliance/ETOH withdrawal -Severe hypokalemia -Hypomagnesemia -Prolonged QTc, ?from electrolyte abnormalities. -Scalp pain, ?fall Plan: FOllow up CT A/P, full liquid diet. Surgery consult Dr. Lora, but low suspicion for gall bladder process CIWA protocol with librium, seizure precautions. Detox consult. s/p ASA/lipitor in ED. Repeat EKG with persistent ST depressions in III, aVF, telemetry, trend cardiac enzymes. 2Decho. Cardiology consult. ?2D echo vs stress test. HOld off on heparin pending CT head as below. Unclear h/o fall. Scalp pain, CT head stat. Start metoprolol 25 mg BID. (Patient reports amlodipine 5 mg at home). Replete K, Mg aggressive given EKG changes and prolonged QTc. GIPPX protonix D5NS IVF, add K if persistently hypokalemia DVTPPX pending CT head above. Psychiatry consult, patient anxious, tearful, reports recent stressors results in ETOH relapse. Dispo pending resolution of medical issues. Plan discussed with patient and RN in detail, all questions answered. Patient relayed understanding and in agreement. Visit type - Emergency Visit Emergency Visit: Yes ED Registration Date: 11/05/17 Care time: The patient presented to the Emergency Department on the above date and was hospitalized for further evaluation of their emergent condition. - New Patient This patient is new to me today: Yes Date on this admission: 11/06/17 - Critical Care Critical Care patient: No - Discharge Referral Referred to [facility] Med [facility] No
[2017-11-06] MEDS: FOLIC ACID 1 MG TABLET (FP) PO SCH ×2 (11:29→11:34)
[2017-11-06] MEDS ORDERED: MAGNESIUM SULFATE IN WATER 2 GM/50 ML IVPB IVPB ONE (11:30)
[2017-11-06] MEDS ORDERED: METOPROLOL TARTRATE 25 MG TABLET (FP) ONE (11:32)
[2017-11-06] MEDS: METOPROLOL TARTRATE 25 MG TABLET (FP) PO SCH ×2 (11:32→22:45)
[2017-11-06] MEDS: THIAMINE HCL 100 MG TABLET (FP) PO SCH (11:33)
[2017-11-06] MEDS: PANTOPRAZOLE 40 MG TABLET (FP) PO SCH (11:34)
[2017-11-06] MEDS ORDERED: PANTOPRAZOLE 40 MG TABLET (FP) ONE (11:34)
[2017-11-06] MEDS ORDERED: KCL 10 MEQ IVPB 10 MEQ/100 ML INFUS.BAG IVPB ONE ×2 (12:14→14:08)
[2017-11-06] MEDS: KCL 10 MEQ IVPB 10 MEQ/100 ML INFUS.BAG IVPB SCH ×2 (12:18→18:12)
[2017-11-06] MEDS: OFLOXACIN 0.3% OPHTHALMIC SOLUTION 5 ML BOTTLE OS SCH ×2 (12:19→20:50)
[2017-11-06] MEDS ORDERED: ASPIRIN 325 MG TABLET PO ONE (12:37)
--- NOTE | 2017-11-06 12:37 | CONSULT ---
Consult Consult Specialty:: Cardiology Referred by:: Medicine Reason for Consultation:: (+) troponin - History of Present Illness Chief Complaint: Flank pain (right) History of Present Illness: 47 yo AA female with chronic anemia and HTN previously on metoprolol Known EtoH abuse with admission to [facility] in 03/2016 for ETOH withdrawal and (+) troponin - demand related that was managed conservatively Had admission in 2015 to [facility] for EtOH and suicidal ideation Now presented to ED with right flank pain after fall Does not recall falling but believes she woke up on the ground but can't recall Last EtOH was 5 days ago according to her She was told to have had a "heart blockage " before but no report of cardiac cath (?) No regular CV care Troponin checked in ED and found to be 0.3 to 0.28 She denies any chest pain or dyspnea - History Source History Provided By: Patient Limitations to Obtaining History: Poor Historian - Past Medical History Cardio/Vascular: Yes: HTN ...LMP: 03/03/16 - Alcohol/Substance Use Hx Alcohol Use: No History of Substance Use: reports: None - Smoking History Smoking history: Never smoked Have you smoked in the past 12 months: No Home Medications - Allergies Allergies/Adverse Reactions: Allergies Allergy/AdvReac Type Severity Reaction Status Date / Time No Known Allergies Allergy Verified 11/05/17 16:52 - Home Medications Home Medications: Ambulatory Orders Metoprolol Succinate [Toprol Xl -] 12.5 mg PO DAILY 08/16/16 Triamterene/Hydrochlorothiazid [Maxzide 37.5 mg-25 mg Tablet] 1 each PO DAILY Family Disease History - Family Disease History Family Disease History: Heart Disease: Mother (HTN) Review of Systems - Review of Systems Constitutional: reports: No Symptoms Eyes: reports: No Symptoms HENT: reports: No Symptoms Neck: reports: No Symptoms Cardiovascular: reports: No Symptoms Respiratory: reports: No Symptoms Gastrointestinal: reports: Abdominal Pain (Flank pain) Genitourinary: reports: No Symptoms Endocrine: reports: No Symptoms Physical Exam Vital Signs: Vital Signs Temperature 98.9 F 11/05/17 16:50 Pulse Rate 76 11/06/17 08:24 Respiratory Rate 17 11/06/17 08:24 Blood Pressure 156/104 11/06/17 08:24 O2 Sat by Pulse Oximetry (%) 98 11/06/17 08:00 Constitutional: Yes: No Distress Eyes: Yes: WNL HENT: Yes: WNL Neck: Yes: WNL Cardiovascular: Yes: Regular Rate and Rhythm Respiratory: Yes: CTA Bilaterally Gastrointestinal: Yes: Normal Bowel Sounds Musculoskeletal: Yes: Other (Right flank pain to palpation.) Extremities: Yes: WNL Edema: No Labs: CBC, BMP 11/06/17 06:10 11/06/17 06:10 Imaging - Results X-ray: Report Reviewed (Low lung volumes. No acute pulmonary pathology noted.) EKG: Image Reviewed (ECG on 11/06/2017 at 10:24 NSR at 63/min with TWI III and aVF, QTc 493) Other: Report Reviewed (Echo 03/2016 Normal LV size and function, Grade I diastolic dysfunction and no significant valular abnormality.) Assessment/Plan 47 yo female with chronic anemia and HTN now with right flank pain after fall and incidental (+) troponin. 1) (+) Troponin -Incidental (+) troponin that is flat and low level, ECG OK and no CV symptoms -Doubt ACS and may be demand related to underlying EtOH withdrawal and anemia -Would continue asa and metoprolol -Reasonable to check echo in AM to evaluate for WMA, but will likely be normal 2) HTN -Well controlled -Continue Metoprolol 3) Etoh -EtOH withdrawal and anemia management as per primary team
[2017-11-06] MEDS ORDERED: POTASSIUM CHLORIDE TABS 20 MEQ TABLET.ER (FP) PO ONE (14:07)
--- NOTE | 2017-11-06 14:59 | EKG ---
Test Reason : Blood Pressure : / mmHG Vent. Rate : 063 BPM Atrial Rate : 063 BPM P-R Int : 150 ms QRS Dur : 076 ms QT Int : 482 ms P-R-T Axes : 025 -04 -21 degrees QTc Int : 493 ms NORMAL SINUS RHYTHM PROLONGED QT ABNORMAL ECG WHEN COMPARED WITH ECG OF 05-NOV-2017 18:57, NO SIGNIFICANT CHANGE WAS FOUND Confirmed by BELEM POON, ROSARIO ([id number]) on 11/06/2017 2:59:19 PM Referred By: Isma DOUGLAS Confirmed By:ROSARIO PATRICIA MD
--- NOTE | 2017-11-06 17:47 | CONSULT ---
Consult Detox [facility] Reason for Current Admission/Consult: alcohol use - History History of Present Illness: 47 yof with PMHx of ETOH abuse/multiple prior admissions for alcohol use for detox, HTN. Pt states she was recently admitted- about 2 weeks ago to [facility] after a DWI for suicidal ideation. Pt states that she has been under a lot of stress recently- left, she lost her job and her car, has a DWI charge... Says she drank 4 "beers" about 5 days ago. Adamantly denies drinking the day prior to admission. Says she does not remember what happened, but found herself on the floor and called out to neighbor who asked her to come to ER. Pt states she drinks alcohol only occ now and drinks to sleep and when she is feeling depressed. Denies regular use of alcohol. States in the past she has passed out from alcohol use. In the ER yesterday, pt c/o Right sided abdominal pain, and found with Elevated troponin and Electrolyte abnormalities. - History Source History Provided By: Patient Limitations to Obtaining History: Language Barrier - Alcohol/Substance Use Hx Alcohol Use: Yes Hx Substance Use: No Hx Substance Use Treatment: No - Current Drug/Alcohol Use Alcohol Frequency: 1-2 times per week Amount used: 4-5 alcoholic drinks about 4-5 days prior to admission according to pt Date of Last Use: 11/02/17 - Past Medical History Cardio/Vascular: Yes: HTN ...LMP: 03/03/16 ...: No - Significant Medical Findings: Pt is being evaluated for : -Pt with Abdominal pain- low suspicion for gall bladder disease -Acute alcohol withdrawal -NSTEMI, ?Demand from above, r/o ACS -UNcontrolled HTN, likely from non compliance/ETOH withdrawal -Severe hypokalemia -Hypomagnesemia -Prolonged QTc, ?from electrolyte abnormalities. -Scalp pain, ?fall CIWA Score - CIWA Score Nausea/Vomitin-No Nausea/No Vomiting Muscle Tremors: None Anxiety: 4-Mod. Anxious/Guarded Agitation: 2 Paroxysmal Sweats: No Perspiration Orientation: 0-Oriented Tacttile Disturbances: 0-None Auditory Disturbances: 0-None Visual Disturbances: 0-None Headache: 1-Very Mild CIWA-Ar Total Score: 7 Assessment Plan - Diagnosis (1) Alcohol-induced mood disorder Status: Chronic (2) Substance or medication-induced sleep disorder, insomnia type Status: Chronic - Plan Plan: Pt on librium detox protocol. no evidence of acute alcohol withdrawal now. Tungien prn for sleep added pt is tearful in recounting her multiple stressors in her life now: SW consult d/w pt admission to [facility] for rehab f/u- pt states she cannot right now b/c of her multiple stressors including the potential of losing her apartment. Please call me back if I can be of further assistance: [phone] - Medication Detox Regimen/Protocol: Librium
[2017-11-06] MEDS: POTASSIUM CHLORIDE 10 MEQ in SODIUM CHLORIDE 100 ML IVPB SCH ×2 (18:02→19:37)
--- NOTE | 2017-11-06 22:45 | CONSULT ---
- Consultation REQUESTING PROVIDER: Vivek POON CONSULT REQUEST: We have been asked to surgically evaluate this patient for ? acute cholecystitis " PCP:Juan Doyle MD HISTORY OF PRESENT ILLNESS: CTSP for evaluation of ? "acute cholecystitis "; confusing hx. w/? syncope and fall ?; she has no n/v/abdominal pain; c/o right flank pain; denies FFI; dark urine; light stools ; she wants to eat; she has no HPI c/w surgical causes of abdominal pain PMHx: EtoH PSHx: myomectomy and ??? Home Medications Medication Instructions Recorded Metoprolol Succinate [Toprol Xl -] 12.5 mg PO DAILY 08/16/16 Triamterene/Hydrochlorothiazid 1 each PO DAILY 08/16/16 [Maxzide 37.5 mg-25 mg Tablet] Allergies Allergy/AdvReac Type Severity Reaction Status Date / Time No Known Allergies Allergy Verified 11/05/17 16:52 PHYSICAL EXAM: GENERAL: Awake, alert, and fully oriented, in no acute distress. HEAD: Normal with no signs of trauma. EYES: sclera anicteric, conjunctiva clear. NECK: Normal ROM, supple without lymphadenopathy, JVD, or masses. L ABDOMEN: Soft, nontender, not distended, normoactive bowel sounds, no guarding, no rebound, no masses. No organomegaly. No hernias MUSCULOSKELETAL: Normal ROM at all joints. No bony deformities or tenderness. No CVA tenderness. UPPER EXTREMITIES: 2+ pulses, warm, well-perfused. No cyanosis. Cap refill <2 seconds. No peripheral edema. LOWER EXTREMITIES: 2+ pulses, warm, well-perfused. No calf tenderness. No peripheral edema. NEUROLOGICAL: Normal speech, gait not observed. PSYCH: Cooperative. Good eye contact. Appropriate mood and affect. SKIN: Warm, dry, normal turgor, no rashes or lesions noted. Vital Signs Temperature 97.4 F L 11/06/17 18:00 Pulse Rate 93 H 11/06/17 18:00 Respiratory Rate 18 11/06/17 18:00 Blood Pressure 156/107 11/06/17 18:00 O2 Sat by Pulse Oximetry (%) 100 11/06/17 20:59 Lab Results WBC 7.0 K/mm3 (4.0-10.0) 11/06/17 06:10 RBC 3.72 M/mm3 (3.60-5.2) 11/06/17 06:10 Hgb 9.2 GM/dL (10.7-15.3) L 11/06/17 06:10 Hct 28.9 % (32.4-45.2) L 11/06/17 06:10 MCV 77.7 fl (80-96) L 11/06/17 06:10 MCHC 31.9 g/dl (32.0-36.0) L 11/06/17 06:10 RDW 32.5 % (11.6-15.6) H 11/06/17 06:10 Plt Count 247 K/MM3 (134-434) D 11/06/17 06:10 Sodium 141 mmol/L (136-145) 11/06/17 06:10 Potassium 2.8 mmol/L (3.5-5.1) L* 11/06/17 06:10 Chloride 103 mmol/L (98-107) 11/06/17 06:10 Carbon Dioxide 29 mmol/L (21-32) 11/06/17 06:10 Anion Gap 9 (8-16) 11/06/17 06:10 BUN 10 mg/dL (7-18) 11/06/17 06:10 Creatinine 1.2 mg/dL (0.55-1.02) H 11/06/17 06:10 Random Glucose 98 mg/dL (74-106) 11/06/17 06:10 Calcium 8.4 mg/dL (8.5-10.1) L 11/06/17 06:10 Blood Type O POSITIVE 11/05/17 17:47 Antibody Screen Negative 11/05/17 17:47 INR 1.06 (0.82-1.09) 11/06/17 06:10 US gallbladder-negative IMP: no evidence of an acute surgical problem specifically acute cholecystitis/ cholelithiasis PLAN: Management per primary team; reconsult prn.. Fernando Lora MD FACS
[2017-11-06] MEDS: ZOLPIDEM TARTRATE 5 MG TABLET PO PRN (23:09)
[2017-11-07] MEDS: OFLOXACIN 0.3% OPHTHALMIC SOLUTION 5 ML BOTTLE OS SCH ×10 (01:00→22:00)
[2017-11-07] MEDS: DEXTROSE 5%-NORMAL SALINE 1,000 ML IV SCH ×2 (03:30→13:19)
[2017-11-07] MEDS: chlordiazePOXIDE HCL 25 MG CAPSULE PO SCH ×4 (05:14→21:59)
[2017-11-07 06:09] LABS: SERUM IRON SATURATION > 96 % (15-55); TOTAL IRON BINDING CAPACITY < 391 ug/dL (250-450); UIBC < 17 ug/dL (131-425)
[2017-11-07 08:00] LABS: BASO % 1.2 % (0-2.0); EOS % 0.6 % (0-4.5); HEMOGLOBIN 9.4 GM/dL (10.7-15.3); LYMPH % 14.8 % (8-40); MCH 24.6 pg (25.7-33.7); MCHC 30.5 g/dl (32.0-36.0); MEAN CELL VOLUME 80.6 fl (80-96); MEAN PLT VOLUME 8.9 fl (7.5-11.1); NEUT % 76.4 % (42.8-82.8); PLATELET COUNT 193 K/MM3 (134-434); RBC 3.84 M/mm3 (3.60-5.2); RDW 31.4 % (11.6-15.6); WHITE BLOOD COUNT 7.4 K/mm3 (4.0-10.0)
[2017-11-07 08:36] LABS: ALBUMIN 3.3 g/dl (3.4-5.0); ANION GAP 12 (8-16); BILIRUBIN,TOTAL 0.5 mg/dL (0.2-1.0); BLOOD UREA NITROGEN 11 mg/dL (7-18); CALCIUM 8.7 mg/dL (8.5-10.1); CHLORIDE 109 mmol/L (98-107); CO2 20 mmol/L (21-32); GLUCOSE,RANDOM 74 mg/dL (74-106); MAGNESIUM 1.6 mg/dL (1.8-2.4); PHOSPHOROUS 2.5 mg/dL (2.5-4.9); POTASSIUM 3.5 mmol/L (3.5-5.1); SGOT/AST 48 U/L (15-37); SGPT/ALT 22 U/L (12-78); SODIUM 141 mmol/L (136-145)
[2017-11-07 08:37] LABS: ALK PHOS 65 U/L (45-117)
[2017-11-07] MEDS: METOPROLOL TARTRATE 25 MG TABLET (FP) PO SCH (10:24)
[2017-11-07] MEDS: PANTOPRAZOLE 40 MG TABLET (FP) PO SCH (10:25)
[2017-11-07] MEDS: THIAMINE HCL 100 MG TABLET (FP) PO SCH (10:25)
[2017-11-07] MEDS: FOLIC ACID 1 MG TABLET (FP) PO SCH (10:25)
[2017-11-07] MEDS ORDERED: MAGNESIUM SULF 50% (8.12 MEQ/2 ML-1 GM VIAL) IVPB ONE (11:41)
[2017-11-07] MEDS ORDERED: MAGNESIUM SULFATE IN WATER 2 GM/50 ML IVPB IVPB ONE (12:00)
--- NOTE | 2017-11-07 12:41 | PN ---
Progress Note, Physician Chief Complaint: sob History of Present Illness: pt initially seen yest by our group for flank pain post fall, with non-ACS troponins. she now states that she has been feeling sob/fatigued with routine activity for approx 6 months. notices she has to sit on the bed and rest when tries to change the linens. no cp. no palpitations, syncope denies cigs denies FH of CAD denies DM, lipids +HTN - Current Medication List Current Medications: Active Medications Chlordiazepoxide HCl (Librium -) 25 mg PO [id number] DORON Stop: 11/07/17 23:01 Last Admin: 11/07/17 10:24 Dose: 25 mg Chlordiazepoxide HCl (Librium -) 15 mg PO [id number] DORON Stop: 11/08/17 23:01 Chlordiazepoxide HCl (Librium -) 25 mg PO Q4H PRN PRN Reason: WITHDRAWAL(CONT SUBST) Stop: 11/09/17 02:01 Folic Acid (Folic Acid -) 1 mg PO DAILY [facility] Last Admin: 11/07/17 10:25 Dose: 1 mg Heparin Sodium (Porcine) (Heparin -) 500 unit SQ Q8H-IV [facility] Last Admin: 11/06/17 12:27 Dose: Not Given Dextrose/Sodium Chloride (D5-Ns -) 1,000 mls @ 100 mls/hr IV ASDIR [facility] Last Admin: 11/07/17 03:30 Dose: 100 mls/hr Magnesium Sulfate (Magnesium Sulf 2 G/50 Ml Bag) 2 gm in 50 mls @ 50 mls/hr IVPB ONCE ONE Stop: 11/07/17 12:59 Metoprolol Tartrate (Lopressor -) 25 mg PO BID [facility] Last Admin: 11/07/17 10:24 Dose: 25 mg Ofloxacin (Ocuflox 0.3% Eye Drops -) 1 drop OS Q2H [facility] Last Admin: 11/07/17 10:28 Dose: 1 drop Pantoprazole Sodium (Protonix -) 40 mg PO DAILY [facility] Last Admin: 11/07/17 10:25 Dose: 40 mg Thiamine HCl (Vitamin B1 -) 100 mg PO DAILY [facility] Last Admin: 11/07/17 10:25 Dose: 100 mg Zolpidem Tartrate (Ambien -) 5 mg PO HS PRN PRN Reason: INSOMNIA Stop: 11/10/17 11:00 Last Admin: 11/06/17 23:09 Dose: 5 mg - Objective Vital Signs: Vital Signs Temperature 98 F 11/07/17 05:18 Pulse Rate 71 11/07/17 10:42 Respiratory Rate 20 11/07/17 10:46 Blood Pressure 133/81 11/07/17 10:42 O2 Sat by Pulse Oximetry (%) 100 11/07/17 10:46 Constitutional: Yes: Well Nourished, No Distress, Calm Cardiovascular: Yes: Regular Rate and Rhythm, S1, S2. No: JVD, Gallop, Murmur Respiratory: Yes: Regular, CTA Bilaterally. No: Accessory Muscle Use, Rales, Wheezes Extremities: No: Cold Edema: No Neurological: Yes: Alert, Oriented Labs: CBC, BMP 11/07/17 07:40 11/07/17 07:40 INR, PTT INR 1.06 (0.82-1.09) 11/06/17 06:10 Assessment/Plan CXR: Low lung volumes. No acute pulmonary pathology ECG on 11/06/2017: NSR at 63/min with TWI III and aVF, QTc 493) Echo 03/2016: Normal LV size and function, Grade I diastolic dysfunction and no significant valular abnormality.) tele: NSR Assessment/Plan 47 yo female with chronic anemia and HTN now with right flank pain after fall and incidental (+) troponin. (+) Troponin, SOB -Incidental (+) troponin that is flat and intermediate range (0.2-0.3 x 3), no acute ischemic ECG changes -pt with no acute CV sx's, though she reports chronic exertional sob/fatigue x 6 months -Doubt ACS and may be demand related to underlying EtOH withdrawal and anemia -Would continue asa and metoprolol -had echo today--results pending -needs stress testing prior to discharge in light of her exertional sx complaint --would favor stress echo to avoid breast radiation exposure in 47 yo female. will order stress echo for tomorrow, hold metoprolol x24 hrs (received dose after 10am today) 2) HTN -Well controlled, on metoprolol here which will be stopped for stress test -states she is on amlodipine at home--5mg qd ordered 3) Etoh -EtOH withdrawal and anemia management as per primary team
--- NOTE | 2017-11-07 14:08 | ECHO ---
Name: NANETTE WATT Exam:Adult Echocardiogram Study Date: 11/07/2017 10:53 AM Age: 47 yrs Reason For Study: + troponin Height: 71 in Weight: 190 lb BSA: 2.1 m2 MMode/2D Measurements & Calculations IVSd: 1.0 cm Ao root diam: 2.8 cm LVIDd: 4.7 cm LA dimension: 3.9 cm LVIDs: 2.7 cm LVPWd: 1.3 cm EDV(Teich): 104.0 ml ESV(Teich): 27.1 ml Doppler Measurements & Calculations MV E max oscar: 51.4 cm/sec MR max oscar: 461.0 cm/sec MV A max oscar: 99.0 cm/sec MR max P.0 mmHg MV E/A: 0.52 MV dec time: 0.31 sec TR max oscar: 279.3 cm/sec Med Peak E' Oscar: 6.0 cm/sec TR max P.3 mmHg Med E/e': 8.6 Lat Peak E' Oscar: 6.2 cm/sec Lat E/e': 8.3 PI Vmax: 164.2 cm/sec Procedure A two-dimensional transthoracic echocardiogram with color flow and Doppler was performed. Left Ventricle The left ventricular size, thickness and function are normal. The left ventricular ejection fraction is normal. E/A reversal consistent with but not diagnostic of poor LV compliance. The left ventricular w all motion is normal. Right Ventricle The right ventricle is normal in size and function. Atria The left atrium is borderline dilated. The right atrium is borderline dilated. Mitral Valve There is mild mitral valve thickening. No significant mitral valve stenosis. There is mild mitral regurgitation. Tricuspid Valve There is mild tricuspid valve thickening. There is no tricuspid stenosis. There is Trace to mild tric uspid regurgitation. Right ventricular systolic pressure is elevated at 40-50mmHg. Aortic Valve The aortic valve is normal in structure and function. No hemodynamically significant valvular aortic stenosis. No aortic regurgitation is present. Pulmonic Valve The pulmonic valve is not well visualized. There is no pulmonic valvular stenosis. Trace pulmonic zahraa vular regurgitation. Great Vessels The aortic root is normal size. Pericardium/Pleura There is no pericardial effusion. Interpretation Summary The left ventricular size, thickness and function are normal The left ventricular ejection fraction is normal. The left ventricular wall motion is normal. The left atrium is borderline dilated. The right atrium is borderline dilated. Trace pulmonic valvular regurgitation. E/A reversal consistent with but not diagnostic of poor LV compliance There is mild mitral regurgitation. There is Trace to mild tricuspid regurgitation. Right ventricular systolic pressure is elevated at 40-50mmHg. MD Woo Veras 11/07/2017 02:07 PM
--- NOTE | 2017-11-07 14:35 | CON.PSY ---
Psychiatry Consult Chief Complaint: 47 YEAR OLD with a history of Alcohol DFependence admitted with Abd Pain. No psych illness, she denies any. Patrient seen eating her lunch. - Previous Psychiatric Treatment Outpatient: None Inpatient: None - Previous Substance Abuse Treatment Outpatient: More than 6 mos ago Inpatient: 2 or more prior admissions - Reason for Previous Treatment Reason for Previous Treatment: Alcohol Abuse - Current Medications Current Medications: Active Medications Amlodipine Besylate (Norvasc -) 5 mg PO DAILY [facility] Chlordiazepoxide HCl (Librium -) 25 mg PO [id number] DORON Stop: 11/07/17 23:01 Last Admin: 11/07/17 10:24 Dose: 25 mg Chlordiazepoxide HCl (Librium -) 15 mg PO [id number] DORON Stop: 11/08/17 23:01 Chlordiazepoxide HCl (Librium -) 25 mg PO Q4H PRN PRN Reason: WITHDRAWAL(CONT SUBST) Stop: 11/09/17 02:01 Folic Acid (Folic Acid -) 1 mg PO DAILY [facility] Last Admin: 11/07/17 10:25 Dose: 1 mg Heparin Sodium (Porcine) (Heparin -) 500 unit SQ Q8H-IV [facility] Last Admin: 11/06/17 12:27 Dose: Not Given Dextrose/Sodium Chloride (D5-Ns -) 1,000 mls @ 100 mls/hr IV ASDIR [facility] Last Admin: 11/07/17 13:19 Dose: 100 mls/hr Ofloxacin (Ocuflox 0.3% Eye Drops -) 1 drop OS Q2H [facility] Last Admin: 11/07/17 13:19 Dose: 1 drop Pantoprazole Sodium (Protonix -) 40 mg PO DAILY [facility] Last Admin: 11/07/17 10:25 Dose: 40 mg Thiamine HCl (Vitamin B1 -) 100 mg PO DAILY [facility] Last Admin: 11/07/17 10:25 Dose: 100 mg Zolpidem Tartrate (Ambien -) 5 mg PO HS PRN PRN Reason: INSOMNIA Stop: 11/10/17 11:00 Last Admin: 11/06/17 23:09 Dose: 5 mg - Allergies Allergies: Allergies Allergy/AdvReac Type Severity Reaction Status Date / Time No Known Allergies Allergy Verified 11/05/17 16:52 - Current Living Status Usual Living Arrangement: Alone - Current Mental Status Evaluation Appearance: Well Groomed Attitude: Cooperative - Affect Affect: Constrictive Appropriateness: Appropriate to Content - Mood Mood: Euthymic - Speech/Language Expressive: Coherent - Psychomotor Activity Psychomotor Activity: Normal - Thought Process Thought Process: Intact - Thought Content Hallucinations: Absent Delusions: Absent - Self Perception Self Perception: No Impairment - Cognition Attention: Alert Orientation: Time Memory, Immediate Recall: Intact - Concentration Serial Sevens Intact: No Simple Calculations Intact: Yes - Abstraction Proverb Interpretation: Intact Judgement: Minimally Impaired - Insight Insight: Intact - Impulse Control Impulse Control: Minimally Impaired - Suicidal Ideation Suicidal Ideation: No - Homicidal Ideation Homicidal Ideation: No Assessment/Plan 1) No acute Psych Illness. 2) Continue with DEtox. 3) Discharge when medically clear.
--- NOTE | 2017-11-07 15:43 | PN ---
Teaching Attending Note Name of Resident: Brendan Delgado ATTENDING PHYSICIAN STATEMENT I saw and evaluated the patient. I reviewed the resident's note and discussed the case with the resident. I agree with the resident's findings and plan as documented with exceptions below. SUBJECTIVE: Patient seen and examined. no chest pain, right sided abdominal pain improved. Mildly tremulous. Tolerating diet well. OBJECTIVE: Vital Signs Period Temp Pulse Resp BP Sys/Arevalo Pulse Ox Last 24 Hr 97.4 F-98.8 F 65-93 18-20 128-156/81-107 100-100 Intake & Output 11/04/17 11/05/17 11/06/17 11/07/17 23:59 23:59 23:59 23:59 Intake Total 3280 Balance 3280 Weight 190 lb 190 lb General: sitting in bed in no acute distress Chest: CTAB, no rales or wheezing Abdomen:Soft, no RUQ tenderness, NT otherwise, no voluntary or involuntary guarding or rigidity Extremities: no edema, mild tremors Active Medications Amlodipine Besylate (Norvasc -) 5 mg PO DAILY [facility] Chlordiazepoxide HCl (Librium -) 25 mg PO [id number] DORON Stop: 11/07/17 23:01 Last Admin: 11/07/17 10:24 Dose: 25 mg Chlordiazepoxide HCl (Librium -) 15 mg PO [id number] DORON Stop: 11/08/17 23:01 Chlordiazepoxide HCl (Librium -) 25 mg PO Q4H PRN PRN Reason: WITHDRAWAL(CONT SUBST) Stop: 11/09/17 02:01 Folic Acid (Folic Acid -) 1 mg PO DAILY [facility] Last Admin: 11/07/17 10:25 Dose: 1 mg Heparin Sodium (Porcine) (Heparin -) 500 unit SQ Q8H-IV [facility] Last Admin: 11/06/17 12:27 Dose: Not Given Dextrose/Sodium Chloride (D5-Ns -) 1,000 mls @ 100 mls/hr IV ASDIR [facility] Last Admin: 11/07/17 13:19 Dose: 100 mls/hr Ofloxacin (Ocuflox 0.3% Eye Drops -) 1 drop OS Q2H [facility] Last Admin: 11/07/17 13:19 Dose: 1 drop Pantoprazole Sodium (Protonix -) 40 mg PO DAILY [facility] Last Admin: 11/07/17 10:25 Dose: 40 mg Thiamine HCl (Vitamin B1 -) 100 mg PO DAILY [facility] Last Admin: 11/07/17 10:25 Dose: 100 mg Zolpidem Tartrate (Ambien -) 5 mg PO HS PRN PRN Reason: INSOMNIA Stop: 11/10/17 11:00 Last Admin: 11/06/17 23:09 Dose: 5 mg Laboratory Results - last 24 hr 11/06/17 11/06/17 11/06/17 06:10 06:35 23:03 WBC RBC Hgb Hct MCV MCH MCHC RDW Plt Count MPV Absolute Neuts (auto) Neutrophils % Lymphocytes % Monocytes % Eosinophils % Basophils % Nucleated RBC % Sodium Potassium Chloride Carbon Dioxide Anion Gap BUN Creatinine Creat Clearance w eGFR POC Glucometer 112 Random Glucose Calcium Phosphorus Magnesium Iron 374 H TIBC < 391 Iron Saturation > 96 H Ferritin Total Bilirubin AST ALT Alkaline Phosphatase Total Protein Albumin Blood Type O POSITIVE 11/07/17 11/07/17 11/07/17 07:40 07:40 10:30 WBC 7.4 RBC 3.84 Hgb 9.4 L Hct 31.0 L MCV 80.6 MCH 24.6 L MCHC 30.5 L RDW 31.4 H Plt Count 193 D MPV 8.9 D Absolute Neuts (auto) 5.7 Neutrophils % 76.4 D Lymphocytes % 14.8 D Monocytes % 7.0 Eosinophils % 0.6 Basophils % 1.2 Nucleated RBC % 0 Sodium 141 Potassium 3.5 Chloride 109 H Carbon Dioxide 20 L Anion Gap 12 BUN 11 Creatinine 1.0 Creat Clearance w eGFR 59.43 POC Glucometer Random Glucose 74 Calcium 8.7 Phosphorus 2.5 Magnesium 1.6 L Iron TIBC Iron Saturation Ferritin 46.6 Total Bilirubin 0.5 AST 48 H ALT 22 Alkaline Phosphatase 65 Total Protein 7.0 Albumin 3.3 L Blood Type Microbiology 11/05/17 17:47 Urine - Urine Clean Catch Urine Culture - Final NO GROWTH OBTAINED ASSESSMENT AND PLAN: 47 yof with PMHx of ETOH abuse/multiple prior admissions for detox, HTN, admitted with tremors, Right sided abdominal pain, found with Elevated troponin and Electrolyte abnormalities. -Abdominal pain, right lateral wall, neg Orourke's, low suspicion for gall bladder disease, ?musculoskeletal -Acute alcohol withdrawal -NSTEMI, ?Demand from above/anemia/HTN -UNcontrolled HTN, likely from non compliance/ETOH withdrawal -Severe hypokalemia -Hypomagnesemia -Anemia with abnormal Iron panel -Prolonged QTc, ?from electrolyte abnormalities. -Scalp pain, ?fall Plan: Advance to cardiac diet. CT A/p Non concerning. Surgery input noted. CIWA protocol with librium, seizure precautions. Detox consult. s/p ASA/lipitor in ED. Repeat EKG with persistent ST depressions in III, aVF, telemetry, cardiac enzymes flat. 2Decho noted. Cardiology consult noted. Stress echo in AM. Hold metoprolol x 24 hours. Repeat EKG to assess QTc. Replete K, Mg prn. Unclear h/o fall. Scalp pain, CT head neg. Amlodipine resumed, Metoprolol on hold for stress test. GIPPX protonix d/c IVF. Psych input noted. DVTPPX heparin. patient not interested in [facility] till active stressors have resolved. Resources have been provided. Dispo pending resolution of medical issues in 24-48 hours if cardiac w/u neg and continues to improve. Plan discussed with patient and RN in detail, all questions answered. Patient relayed understanding and in agreement.
--- NOTE | 2017-11-07 17:57 | PN ---
Physical Exam: SUBJECTIVE: Patient seen and examined OBJECTIVE: Vital Signs Period Temp Pulse Resp BP Sys/Arevalo Pulse Ox Last 24 Hr 97.4 F-98.8 F 65-121 18-20 128-156/81-111 100-100 GENERAL: The patient is awake, alert, and fully oriented, in no acute distress. HEAD: Normal with no signs of trauma. EYES: PERRL, extraocular movements intact, sclera anicteric, conjunctiva clear. No ptosis. ENT: Ears normal, nares patent, oropharynx clear without exudates, moist mucous membranes. NECK: Trachea midline, full range of motion, supple. LUNGS: Breath sounds equal, clear to auscultation bilaterally, no wheezes, no crackles, no accessory muscle use. HEART: Regular rate and rhythm, S1, S2 without murmur, rub or gallop. ABDOMEN: Soft, nontender, nondistended, normoactive bowel sounds, no guarding, no rebound, no hepatosplenomegaly, no masses. EXTREMITIES: 2+ pulses, warm, well-perfused, no edema. NEUROLOGICAL: Cranial nerves II through XII grossly intact. Normal speech, gait not observed. PSYCH: Normal mood, normal affect. SKIN: Warm, dry, normal turgor, no rashes or lesions noted Laboratory Results - last 24 hr 11/06/17 11/06/17 11/06/17 06:10 06:35 23:03 WBC RBC Hgb Hct MCV MCH MCHC RDW Plt Count MPV Absolute Neuts (auto) Neutrophils % Lymphocytes % Monocytes % Eosinophils % Basophils % Nucleated RBC % Sodium Potassium Chloride Carbon Dioxide Anion Gap BUN Creatinine Creat Clearance w eGFR POC Glucometer 112 Random Glucose Calcium Phosphorus Magnesium Iron 374 H TIBC < 391 Iron Saturation > 96 H Ferritin Total Bilirubin AST ALT Alkaline Phosphatase Total Protein Albumin Blood Type O POSITIVE 11/07/17 11/07/17 11/07/17 07:40 07:40 10:30 WBC 7.4 RBC 3.84 Hgb 9.4 L Hct 31.0 L MCV 80.6 MCH 24.6 L MCHC 30.5 L RDW 31.4 H Plt Count 193 D MPV 8.9 D Absolute Neuts (auto) 5.7 Neutrophils % 76.4 D Lymphocytes % 14.8 D Monocytes % 7.0 Eosinophils % 0.6 Basophils % 1.2 Nucleated RBC % 0 Sodium 141 Potassium 3.5 Chloride 109 H Carbon Dioxide 20 L Anion Gap 12 BUN 11 Creatinine 1.0 Creat Clearance w eGFR 59.43 POC Glucometer Random Glucose 74 Calcium 8.7 Phosphorus 2.5 Magnesium 1.6 L Iron TIBC Iron Saturation Ferritin 46.6 Total Bilirubin 0.5 AST 48 H ALT 22 Alkaline Phosphatase 65 Total Protein 7.0 Albumin 3.3 L Blood Type Active Medications Current Medications Amlodipine Besylate (Norvasc -) 5 mg PO DAILY [facility] Chlordiazepoxide HCl (Librium -) 25 mg PO [id number] [facility] Stop: 11/07/17 23:01 Last Admin: 11/07/17 10:24 Dose: 25 mg Chlordiazepoxide HCl (Librium -) 15 mg PO [id number] [facility] Stop: 11/08/17 23:01 Chlordiazepoxide HCl (Librium -) 25 mg PO Q4H PRN PRN Reason: WITHDRAWAL(CONT SUBST) Stop: 11/09/17 02:01 Folic Acid (Folic Acid -) 1 mg PO DAILY [facility] Last Admin: 11/07/17 10:25 Dose: 1 mg Heparin Sodium (Porcine) (Heparin -) 5,000 unit SQ TID [facility] Ofloxacin (Ocuflox 0.3% Eye Drops -) 1 drop OS Q2H [facility] Last Admin: 11/07/17 13:19 Dose: 1 drop Pantoprazole Sodium (Protonix -) 40 mg PO DAILY [facility] Last Admin: 11/07/17 10:25 Dose: 40 mg Thiamine HCl (Vitamin B1 -) 100 mg PO DAILY [facility] Last Admin: 11/07/17 10:25 Dose: 100 mg Zolpidem Tartrate (Ambien -) 5 mg PO HS PRN PRN Reason: INSOMNIA Stop: 11/10/17 11:00 Last Admin: 11/06/17 23:09 Dose: 5 mg Echo (11/07/17): E/a reversal consistent but not diagnostic of poor LV compliance , mild TR, mild MR, RV systolic perssure elevated at 50-50 mmHg ASSESSMENT/PLAN: 47 y.o F w/ PMHx. of HTN, EtOH abuse, s/p myomectomy(2005) and s/p surgery on her throat for upper GI bleeding, presents w/ right sided abdominal/ flank pain and trembling in her hands #Abdominal/Flank Pain - CT- Chest/Abdomen/Pelvis- Negative for pathology - Abd. US negative for biliary disease - no evidence of cholecystitis #KRISTOFER - IVF - Cr.: 1.0 - Hx. of non-compliant HTN - resolved #r/o ACS - Trop: 0.24-->0.31--->0.28 - f/u Rpt EKG - Echo appreciated - f/u stress test (11/07/17) #EtOH Abuse - Librium Protocol - given Banana Bag (11/06/17) - Ciwa Score 21? as calculated by Dr. Delgado - tremors have ceased - thiamine, folic acid #Anemia - Iron studies- indicative of microcytic anemia - f/u Hgb electrophoresis - reticulocyte count 0.64 #HTN - Hold metoprolol for Stress test - hold triamterene/ HCTZ because of elevated Cr. - start Norvasc 5mg PO #Dispo - admit to telemetry #DVT PPx. - per Dr. Mayorga, hold heparin, resume ASA 81. Visit type - Emergency Visit Emergency Visit: Yes ED Registration Date: 11/05/17 Care time: The patient presented to the Emergency Department on the above date and was hospitalized for further evaluation of their emergent condition. - New Patient This patient is new to me today: No - Critical Care Critical Care patient: No - Discharge Referral Referred to [facility] Med P.C.: No
[2017-11-07] MEDS: HEPARIN NA (PORCINE) 5,000 UNITS/ML 1ML VIAL SQ SCH (21:59)
[2017-11-07] MEDS: ZOLPIDEM TARTRATE 5 MG TABLET PO PRN (21:59)
[2017-11-08] MEDS: OFLOXACIN 0.3% OPHTHALMIC SOLUTION 5 ML BOTTLE OS SCH ×12 (00:45→23:25)
[2017-11-08] MEDS: HEPARIN NA (PORCINE) 5,000 UNITS/ML 1ML VIAL SQ SCH (06:27)
[2017-11-08] MEDS: chlordiazePOXIDE 5 MG CAPSULE PO SCH ×2 (06:27→10:08)
[2017-11-08 08:09] LABS: SERUM IRON SATURATION 25 % (15-55); TOTAL IRON BINDING CAPACITY 354 ug/dL (250-450); UIBC 266 ug/dL (131-425)
[2017-11-08 09:50] LABS: ANION GAP 8 (8-16); BLOOD UREA NITROGEN 12 mg/dL (7-18); CALCIUM 8.6 mg/dL (8.5-10.1); CHLORIDE 107 mmol/L (98-107); CO2 27 mmol/L (21-32); CREATININE 0.7 mg/dL (0.55-1.02); GLUCOSE,RANDOM 84 mg/dL (74-106); MAGNESIUM 1.8 mg/dL (1.8-2.4); POTASSIUM 3.3 mmol/L (3.5-5.1); SODIUM 142 mmol/L (136-145)
[2017-11-08] MEDS: amLODIPine BESYLATE 5 MG TABLET (FP) PO SCH (09:54)
[2017-11-08] MEDS: FOLIC ACID 1 MG TABLET (FP) PO SCH (09:54)
[2017-11-08] MEDS: THIAMINE HCL 100 MG TABLET (FP) PO SCH (09:54)
[2017-11-08] MEDS: PANTOPRAZOLE 40 MG TABLET (FP) PO SCH (09:58)
[2017-11-08] MEDS ORDERED: POTASSIUM CHLORIDE TABS 20 MEQ TABLET.ER (FP) PO ONE (11:30)
--- NOTE | 2017-11-08 13:55 | EKG ---
Test Reason : Blood Pressure : / mmHG Vent. Rate : 072 BPM Atrial Rate : 072 BPM P-R Int : 154 ms QRS Dur : 078 ms QT Int : 458 ms P-R-T Axes : 003 -01 -14 degrees QTc Int : 501 ms NORMAL SINUS RHYTHM NONSPECIFIC T WAVE ABNORMALITY PROLONGED QT ABNORMAL ECG WHEN COMPARED WITH ECG OF 06-NOV-2017 10:24, T WAVE INVERSION NOW EVIDENT IN LATERAL LEADS Confirmed by Hadley Carrera MD ([id number]) on 11/08/2017 1:55:22 PM Referred By: Confirmed By:Hadley Carrera MD
--- NOTE | 2017-11-08 14:14 | PN ---
Teaching Attending Note Name of Resident: Brendan Delgado ATTENDING PHYSICIAN STATEMENT I saw and evaluated the patient. I reviewed the resident's note and discussed the case with the resident. I agree with the resident's findings and plan as documented. SUBJECTIVE:currently asymptomatic. eager to find out what damage she has to her heart. wants to go home to tend to multiple stressors she has at the moment. says she is continues to have auditory hallucinations. says she hears multiple people having conversations but can not make out what is being said. said she also sometimes sees random colors. her hallucinations do not give her commands or tells her to do things or make her feel any particular way. said its something shes been experiencing for several months now. she has already been at [facility] involuntary psych hold for these hallucinations and said they were nothing and discharged. was not instructed to take medications. said she never had CP but was experiencing R flank pain which has resolved. states her drinking is not an issue because she has no desire to drink again as she was sober for 20 years but had a trigger which provoked her to start drinking a month ago. denies Cp, SOB,agitation, anxiety fever, chills, N/V/C/D, no homicidal/suicdal thoughts States she did want to kill herself a few weeks ago (by slitting her wrists) but has no desire to now, she said she has too much left to do in her life, and wants to get her life back on track OBJECTIVE: Last Vital Signs Temp Pulse Resp BP Pulse Ox 98.8 F 70 20 151/96 100 11/08/17 05:56 11/08/17 05:56 11/08/17 05:56 11/08/17 05:56 11/07/17 21:00 General NAD refused physical exam ASSESSMENT AND PLAN: 47 yo F with PMHx of ETOH abuse/multiple prior admissions for detox, HTN, admitted with tremors, Right sided abdominal pain, found with Elevated troponin and Electrolyte abnormalities. 1. Elevated troponin- flat trend with no EKG changes. no reports of CP however has multiple risk factors. NPO for Stress today. holding beta isra. cardio on board 2. Acute ETOH withdrawals- CIWA 0. states hallucinations are chronic and do not think they are part of her withdrawal process at this time. will d/c librium protocol. Would complete tonight. not interested in going to [facility] at this time due to too many social situations she needs to attend to. counseled on risks about continued drinking 3. Hallucinations- was evlauted by psych and determined competent. possible underlying psychiatric disturbance. does not seem to be a danger to herself or orthers. can f/u with psych as outpatient 4. Abdominal pain- now resolved. evaluated by surgery with no intervention at this time 5. hypokalemia- Kcl po 6. hypomagnesemia- Mg po 7. Prolonged Qtc- due to electrolyte disturbances. avoid QT prolonging medication 8. Anemia- likely Hgb remains stable. iron panel wnl. can f/u with hematology as outpatient. no signs of bleeding. no indication for transfusion. 9. HTN- re-start home medication. metoprolol on hold due to stress test. can re- start after 10. DVT ppx- hep sq 11. possible d/c today pending results of stress test.
[2017-11-08 14:20] LABS: HGB SOLUBILITY Negative (Negative); Hgb A 98.2 % (96.4-98.8); Hgb C 0 % (0.0); Hgb F 0 % (0.0-2.0); Hgb S 0 % (0.0)
[2017-11-08] MEDS ORDERED: metoPROLOL SUCCINATE 25 MG TAB.SR.24H (FP) PO SCH (15:45)
--- NOTE | 2017-11-08 16:51 | PN ---
Progress Note (short form) - Note Progress Note: s: feels well, no chest pain. per patient stress test was done but not completed. o: Current Medications Generic Name Dose Route Start Last Admin Trade Name Virgilio PRN Reason Stop Dose Admin Amlodipine Besylate 5 mg 11/08/17 10:00 11/08/17 09:54 Norvasc - PO 5 mg DAILY [facility] Administration Folic Acid 1 mg 11/06/17 10:00 11/08/17 09:54 Folic Acid - PO 1 mg DAILY [facility] Administration Heparin Sodium (Porcine) 5,000 unit 11/07/17 16:00 11/08/17 06:27 Heparin - SQ 5,000 unit TID [facility] Administration Metoprolol Succinate 25 mg 11/08/17 15:45 Toprol Xl - PO DAILY [facility] Ofloxacin 1 drop 11/05/17 18:45 11/08/17 11:53 Ocuflox 0.3% Eye Drops - OS 1 drop Q2H [facility] Administration Pantoprazole Sodium 40 mg 11/06/17 11:00 11/08/17 09:58 Protonix - PO 40 mg DAILY [facility] Administration Thiamine HCl 100 mg 11/06/17 10:00 11/08/17 09:54 Vitamin B1 - PO 100 mg DAILY [facility] Administration Zolpidem Tartrate 5 mg 11/06/17 22:00 11/07/17 21:59 Ambien - PO 11/10/17 11:00 5 mg HS PRN Administration INSOMNIA Vital Signs Period Temp Pulse Resp BP Sys/Arevalo Pulse Ox Last 24 Hr 97.7 F-98.8 F 70-121 20-20 122-154/75-111 100 Constitutional: Yes: Well Nourished, No Distress, Calm Cardiovascular: Yes: Regular Rate and Rhythm, S1, S2. No: JVD, Gallop, Murmur Respiratory: Yes: Regular, CTA Bilaterally. No: Accessory Muscle Use, Rales, Wheezes Extremities: No: Cold Edema: No Neurological: Yes: Alert, Oriented Assessment/Plan CXR: Low lung volumes. No acute pulmonary pathology ECG on 11/06/2017: NSR at 63/min with TWI III and aVF, QTc 493) Echo 03/2016: Normal LV size and function, Grade I diastolic dysfunction and no significant valular abnormality.) tele: NSR Assessment/Plan 47 yo female with chronic anemia and HTN now with right flank pain after fall and incidental (+) troponin. (+) Troponin, SOB -Incidental (+) troponin that is flat and intermediate range (0.2-0.3 x 3), no acute ischemic ECG changes -pt with no acute CV sx's, though she reports chronic exertional sob/fatigue x 6 months -Doubt ACS and may be demand related to underlying EtOH withdrawal and anemia -Would continue asa and metoprolol -echo unremarkable - stress test done today, report is pending 2) HTN -Well controlled, metoprolol was held for stress testing -states she is on amlodipine at home--5mg qd ordered 3) Etoh -EtOH withdrawal and anemia management as per primary team
--- NOTE | 2017-11-08 17:14 | PN ---
Progress Note (short form) - Note Progress Note: apparently, per verbal report from dr hendrickson, pt unable to walk at all for stress test. therefore none was completed. dobutamine echo stress test ordered for tomorrow. metoprolol d/c'd (none received thus far today)
--- NOTE | 2017-11-08 17:29 | PN ---
Physical Exam: SUBJECTIVE: Patient seen and examined OBJECTIVE: Vital Signs Period Temp Pulse Resp BP Sys/Arevalo Pulse Ox Last 24 Hr 97.9 F-98.8 F 70-89 20-20 122-154/75-101 100-100 GENERAL: The patient is awake, alert, and fully oriented, in mild distress. LUNGS: Breath sounds equal, clear to auscultation bilaterally, no wheezes, no crackles, no accessory muscle use. HEART: Regular rate and rhythm, S1, S2 without murmur ABDOMEN: Soft, nontender, nondistended, normoactive bowel sounds EXTREMITIES: 2+ dorsal pedal pulses, warm, well-perfused, no edema, no calf tenderness, tenderness at previous IV site on right arm PSYCH: Labile mood, endorses having both auditory and visual hallucinations at baseline. Laboratory Results - last 24 hr 11/06/17 11/07/17 11/07/17 06:10 10:30 10:30 Hemoglobin A 98.2 Hemoglobin A2 1.8 Hemoglobin C 0 Hemoglobin S 0 Variant Hemoglobin 0.0 Hemoglobin Interpret Maternal Rh 0 Hemoglobin Solubility Negative Sodium Potassium Chloride Carbon Dioxide Anion Gap BUN Creatinine Creat Clearance w eGFR POC Glucometer Random Glucose Calcium Magnesium Iron 88 TIBC 354 Iron Saturation 25 Transferrin 270 11/08/17 11/08/17 06:35 09:15 Hemoglobin A Hemoglobin A2 Hemoglobin C Hemoglobin S Variant Hemoglobin Hemoglobin Interpret Maternal Rh Hemoglobin Solubility Sodium 142 Potassium 3.3 L Chloride 107 Carbon Dioxide 27 Anion Gap 8 BUN 12 Creatinine 0.7 Creat Clearance w eGFR > 60 POC Glucometer 98 Random Glucose 84 Calcium 8.6 Magnesium 1.8 Iron TIBC Iron Saturation Transferrin Active Medications Current Medications Amlodipine Besylate (Norvasc -) 5 mg PO DAILY [facility] Last Admin: 11/08/17 09:54 Dose: 5 mg Folic Acid (Folic Acid -) 1 mg PO DAILY [facility] Last Admin: 11/08/17 09:54 Dose: 1 mg Heparin Sodium (Porcine) (Heparin -) 5,000 unit SQ TID [facility] Last Admin: 11/08/17 06:27 Dose: 5,000 unit Ofloxacin (Ocuflox 0.3% Eye Drops -) 1 drop OS Q2H [facility] Last Admin: 11/08/17 11:53 Dose: 1 drop Pantoprazole Sodium (Protonix -) 40 mg PO DAILY [facility] Last Admin: 11/08/17 09:58 Dose: 40 mg Thiamine HCl (Vitamin B1 -) 100 mg PO DAILY [facility] Last Admin: 11/08/17 09:54 Dose: 100 mg Zolpidem Tartrate (Ambien -) 5 mg PO HS PRN PRN Reason: INSOMNIA Stop: 11/10/17 11:00 Last Admin: 11/07/17 21:59 Dose: 5 mg ASSESSMENT/PLAN: 47 y.o F w/ PMHx. of HTN, EtOH abuse, s/p myomectomy(2005) and s/p surgery on her throat for upper GI bleeding, presents w/ right sided abdominal/ flank pain and trembling in her hands #Abdominal/Flank Pain - CT- Chest/Abdomen/Pelvis- Negative for pathology - Abd. US negative for biliary disease - no evidence of cholecystitis #KRISTOFER - IVF - Cr.: 1.0 - Hx. of non-compliant HTN - resolved #r/o ACS - Trop: 0.24-->0.31--->0.28 - Rpt EKG shows QTc of 501 - Echo appreciated - f/u stress test (11/09/17) #EtOH Abuse - D/c-ed Librium Protocol - given Banana Bag (11/06/17) - Ciwa Score [address] Delgado(11/08/17) - tremors have ceased - thiamine, folic acid #Anemia - Iron studies- indicative of microcytic anemia - f/u Hgb electrophoresis - reticulocyte count 0.64 #HTN - Hold metoprolol?, triamterene/ HCTZ, per cardiology consult? Will discuss with Dr. Pollock and Dr. Arguello - BP not controlled, pending stress test. Pt. unable to complete stress test today. - c/w Norvasc 5mg PO #Dispo - admit to telemetry #DVT PPx. - per Dr. Mayorga, hold heparin, resume ASA 81. Visit type - Emergency Visit Emergency Visit: Yes ED Registration Date: 11/05/17 Care time: The patient presented to the Emergency Department on the above date and was hospitalized for further evaluation of their emergent condition. - New Patient This patient is new to me today: No - Critical Care Critical Care patient: No - Discharge Referral Referred to [facility] Med P.C.: No
[2017-11-09] MEDS: OFLOXACIN 0.3% OPHTHALMIC SOLUTION 5 ML BOTTLE OS SCH ×9 (01:00→17:51)
[2017-11-09 09:08] LABS: ANION GAP 5 (8-16); BLOOD UREA NITROGEN 9 mg/dL (7-18); CALCIUM 8.2 mg/dL (8.5-10.1); CHLORIDE 105 mmol/L (98-107); CO2 28 mmol/L (21-32); CREATININE 0.7 mg/dL (0.55-1.02); GLUCOSE,RANDOM 111 mg/dL (74-106); MAGNESIUM 1.6 mg/dL (1.8-2.4); PHOSPHOROUS 2.8 mg/dL (2.5-4.9); POTASSIUM 3.2 mmol/L (3.5-5.1); SODIUM 138 mmol/L (136-145)
[2017-11-09] MEDS: FOLIC ACID 1 MG TABLET (FP) PO SCH (10:00)
[2017-11-09] MEDS: amLODIPine BESYLATE 5 MG TABLET (FP) PO SCH (10:00)
[2017-11-09] MEDS: THIAMINE HCL 100 MG TABLET (FP) PO SCH (10:00)
[2017-11-09] MEDS: PANTOPRAZOLE 40 MG TABLET (FP) PO SCH (10:00)
[2017-11-09] MEDS ORDERED: MAGNESIUM SULF 50% (8.12 MEQ/2 ML-1 GM VIAL) IVPB ONE (11:22)
[2017-11-09] MEDS ORDERED: POTASSIUM CHLORIDE 20 MEQ in SODIUM CHLORIDE 250 ML IVPB ONE (12:00)
[2017-11-09] MEDS ORDERED: POTASSIUM CHLORIDE 20 MEQ in DEXTROSE 5%-WATER - 250 ML IVPB ONE (12:00)
[2017-11-09] MEDS ORDERED: KCL 10 MEQ IVPB 10 MEQ/100 ML INFUS.BAG IVPB SCH (12:00)
--- NOTE | 2017-11-09 12:41 | PN ---
Teaching Attending Note Name of Resident: Brendan Delgado ATTENDING PHYSICIAN STATEMENT I saw and evaluated the patient. I reviewed the resident's note and discussed the case with the resident. I agree with the resident's findings and plan as documented. SUBJECTIVE:annoyed that she did not do the stress test yesterday. claimed they did not even let her try but as per RN notes she was unable to keep up. has no other complaints today. just wants to go home. denies CP, SOB, fever, chills, n/ V/C/D OBJECTIVE: Last Vital Signs Temp Pulse Resp BP Pulse Ox 98.5 F 81 20 124/69 100 11/09/17 06:15 11/09/17 06:15 11/09/17 06:15 11/09/17 06:15 11/08/17 21:00 General NAD refused physical exam ASSESSMENT AND PLAN: 47 yo F with PMHx of ETOH abuse/multiple prior admissions for detox, HTN, admitted with tremors, Right sided abdominal pain, found with Elevated troponin and Electrolyte abnormalities. 1. Elevated troponin- flat trend with no EKG changes. no reports of CP however has multiple risk factors. NPO for NMST. cardio on board 2. Acute ETOH withdrawals- CIWA 0. would not answer if she continues to have hallucinations. no signs of withdrawal. encouraged to stay sober and seek help from outpatient clinics and AA. 3. Hallucinations- was evaluated by psych and determined competent. possible underlying psychiatric disturbance. does not seem to be a danger to herself or orthers. can f/u with psych as outpatient 4. Abdominal pain- now resolved. evaluated by surgery with no intervention at this time 5. hypokalemia- Kcl po and IV 6. hypomagnesemia- Mg po and IV 7. Prolonged Qtc- due to electrolyte disturbances. avoid QT prolonging medication 8. Anemia- likely Hgb remains stable. iron panel wnl. can f/u with hematology as outpatient. no signs of bleeding. no indication for transfusion. 9. HTN- started on norvasc yesterday with improvement. d/c metoprolol 10. DVT ppx- hep sq 11. possible d/c today pending results of stress test.
[2017-11-09] MEDS ORDERED: PT OWN MED DRAWER 7, Y5N ONE ×2 (12:46→23:41)
[2017-11-09] MEDS: HEPARIN NA (PORCINE) 5,000 UNITS/ML 1ML VIAL SQ SCH ×2 (14:30→21:58)
[2017-11-09] MEDS ORDERED: MAGNESIUM OXIDE 400 MG TABLET (FP) PO ONE (14:45)
[2017-11-09] MEDS ORDERED: POTASSIUM CHLORIDE ORAL LIQUID 20 MEQ/15 ML PO ONE (14:45)
--- NOTE | 2017-11-09 16:58 | PN ---
Progress Note (short form) - Note Progress Note: s: feels well, no chest pain, sob palps dizzy; stress test cancelled today due to low k o: Vital Signs Period Temp Pulse Resp BP Sys/Arevalo Pulse Ox Last 24 Hr 97.7 F-98.5 F 78-90 20-20 119-149/65-96 100 Constitutional: Yes: Well Nourished, No Distress, Calm Cardiovascular: Yes: Regular Rate and Rhythm, S1, S2. No: JVD, Gallop, Murmur Respiratory: Yes: Regular, CTA Bilaterally. No: Accessory Muscle Use, Rales, Wheezes Extremities: No: Cold Edema: No Neurological: Yes: Alert, Oriented no jaundice diaphoresis Current Medications Generic Name Dose Route Start Last Admin Trade Name Freq PRN Reason Stop Dose Admin Amlodipine Besylate 5 mg 11/08/17 10:00 11/09/17 10:00 Norvasc - PO Not Given DAILY [facility] Folic Acid 1 mg 11/06/17 10:00 11/09/17 10:00 Folic Acid - PO Not Given DAILY [facility] Heparin Sodium (Porcine) 5,000 unit 11/07/17 16:00 11/08/17 06:27 Heparin - SQ 5,000 unit TID [facility] Administration Ofloxacin 1 drop 11/05/17 18:45 11/09/17 16:00 Ocuflox 0.3% Eye Drops - OS Not Given Q2H [facility] Pantoprazole Sodium 40 mg 11/06/17 11:00 11/09/17 10:00 Protonix - PO Not Given DAILY [facility] Thiamine HCl 100 mg 11/06/17 10:00 11/09/17 10:00 Vitamin B1 - PO Not Given DAILY [facility] Zolpidem Tartrate 5 mg 11/06/17 22:00 11/07/17 21:59 Ambien - PO 11/10/17 11:00 5 mg HS PRN Administration INSOMNIA CBC, BMP 11/07/17 07:40 11/09/17 08:35 CXR: Low lung volumes. No acute pulmonary pathology ECG on 11/06/2017: NSR at 63/min with TWI III and aVF, QTc 493) Echo 03/2016: Normal LV size and function, Grade I diastolic dysfunction and no significant valular abnormality.) echo 10/2017: nl lv/rv, mild mr, rvsp 40-50 tele: SR Assessment/Plan 47 yo female with chronic anemia and HTN now with right flank pain after fall and incidental (+) troponin. (+) Troponin, SOB -Incidental (+) troponin that is flat and intermediate range (0.2-0.3 x 3), no acute ischemic ECG changes -pt with no acute CV sx's, though she reports chronic exertional sob/fatigue x 6 months -Doubt ACS and may be demand related to underlying EtOH withdrawal and anemia -Would continue asa and metoprolol -echo unremarkable -stress test to be done tomorrow 2) HTN -stable 3) Etoh -EtOH withdrawal and anemia management as per primary team
[2017-11-09] MEDS: MAGNESIUM 1GM/D5W - 1 GM/100 ML IVPB IVPB SCH ×2 (17:51→19:03)
[2017-11-09] MEDS ORDERED: SODIUM CHLORIDE 100 ML with POTASSIUM CHLORIDE 10 MEQ IVPB SCH (19:15)
[2017-11-09] MEDS ORDERED: POTASSIUM CHLORIDE TABS 20 MEQ TABLET.ER (FP) PO ONE (19:15)
[2017-11-09] MEDS: KCL 10 MEQ IVPB 10 MEQ/100 ML INFUS.BAG IVPB SCH ×2 (20:42→21:08)
[2017-11-10] MEDS ORDERED: MELATONIN 5 MG TABLETS PO ONE (00:17)
[2017-11-10] MEDS: OFLOXACIN 0.3% OPHTHALMIC SOLUTION 5 ML BOTTLE OS SCH ×9 (01:32→17:24)
[2017-11-10] MEDS ORDERED: PT OWN MED DRAWER 7, Y5N ONE (01:36)
[2017-11-10] MEDS: HEPARIN NA (PORCINE) 5,000 UNITS/ML 1ML VIAL SQ SCH ×2 (05:14→14:24)
--- NOTE | 2017-11-10 05:15 | PN ---
Physical Exam: SUBJECTIVE: Patient seen and examined OBJECTIVE: Vital Signs Period Temp Pulse Resp BP Sys/Arevalo Pulse Ox Last 24 Hr 98.0 F-98.5 F 71-82 20-20 124-151/65-104 100-100 GENERAL: The patient is awake, alert, and fully oriented, in mild distress. LUNGS: Breath sounds equal, clear to auscultation bilaterally, no wheezes, no crackles, no accessory muscle use. HEART: Regular rate and rhythm, S1, S2 without murmur ABDOMEN: Soft, nontender, nondistended, normoactive bowel sounds EXTREMITIES: 2+ dorsal pedal pulses, warm, well-perfused, no edema, no calf tenderness, tenderness at previous IV site on right arm PSYCH: Labile mood Laboratory Results - last 24 hr 11/09/17 11/09/17 06:05 08:35 Sodium 138 Potassium 3.2 L Chloride 105 Carbon Dioxide 28 Anion Gap 5 L BUN 9 Creatinine 0.7 Creat Clearance w eGFR > 60 POC Glucometer 120 Random Glucose 111 H Calcium 8.2 L Phosphorus 2.8 Magnesium 1.6 L Active Medications Current Medications Amlodipine Besylate (Norvasc -) 5 mg PO DAILY [facility] Last Admin: 11/09/17 10:00 Dose: Not Given Folic Acid (Folic Acid -) 1 mg PO DAILY [facility] Last Admin: 11/09/17 10:00 Dose: Not Given Heparin Sodium (Porcine) (Heparin -) 5,000 unit SQ TID [facility] Last Admin: 11/10/17 05:14 Dose: 5,000 unit Ofloxacin (Ocuflox 0.3% Eye Drops -) 1 drop OS Q2H [facility] Last Admin: 11/10/17 05:14 Dose: 1 drop Pantoprazole Sodium (Protonix -) 40 mg PO DAILY [facility] Last Admin: 11/09/17 10:00 Dose: Not Given Thiamine HCl (Vitamin B1 -) 100 mg PO DAILY [facility] Last Admin: 11/09/17 10:00 Dose: Not Given ASSESSMENT/PLAN: 47 y.o F w/ PMHx. of HTN, EtOH abuse, s/p myomectomy(2005) and s/p surgery on her throat for upper GI bleeding, presents w/ right sided abdominal/ flank pain and trembling in her hands #Abdominal/Flank Pain - CT- Chest/Abdomen/Pelvis- Negative for pathology - Abd. US negative for biliary disease - no evidence of cholecystitis #KRISTOFER - IVF - Cr.: 1.0 - Hx. of non-compliant HTN - resolved #r/o ACS - Trop: 0.24-->0.31--->0.28 - Rpt EKG shows QTc of 501 - Echo appreciated - f/u stress test (11/10/17) #EtOH Abuse - D/c-ed Librium Protocol - given Banana Bag (11/06/17) - Ciwa Score [address] Delgado(11/08/17) - tremors have ceased - thiamine, folic acid #Anemia - Iron studies- indicative of microcytic anemia - f/u Hgb electrophoresis - reticulocyte count 0.64 #HTN - BP controlled, pending stress test. Pt. unable to complete stress test today. - c/w Norvasc 5mg PO #Dispo - admit to telemetry #DVT PPx. - per Dr. Mayorga, hold heparin, resume ASA 81. Visit type - Emergency Visit Emergency Visit: Yes ED Registration Date: 11/05/17 Care time: The patient presented to the Emergency Department on the above date and was hospitalized for further evaluation of their emergent condition. - New Patient This patient is new to me today: No - Critical Care Critical Care patient: No - Discharge Referral Referred to [facility] Med P.C.: No
[2017-11-10] MEDS ORDERED: ACETAMINOPHEN 325 MG TABLET (FP) PO ONE (09:30)
[2017-11-10 09:35] LABS: ANION GAP 5 (8-16); BLOOD UREA NITROGEN 8 mg/dL (7-18); CALCIUM 8.8 mg/dL (8.5-10.1); CHLORIDE 106 mmol/L (98-107); CO2 27 mmol/L (21-32); CREATININE 0.7 mg/dL (0.55-1.02); GLUCOSE,RANDOM 104 mg/dL (74-106); MAGNESIUM 1.8 mg/dL (1.8-2.4); PHOSPHOROUS 3.4 mg/dL (2.5-4.9); SODIUM 138 mmol/L (136-145)
[2017-11-10] MEDS ORDERED: REGADENOSON 0.4 MG/5 ML PRE-FILLED SYRINGE IVPUSH ONE (10:15)
[2017-11-10] MEDS: amLODIPine BESYLATE 5 MG TABLET (FP) PO SCH (13:12)
[2017-11-10] MEDS: THIAMINE HCL 100 MG TABLET (FP) PO SCH (13:12)
[2017-11-10] MEDS: FOLIC ACID 1 MG TABLET (FP) PO SCH (13:13)
--- NOTE | 2017-11-10 14:07 | PN ---
Progress Note (short form) - Note Progress Note: s: feels well, no chest pain, sob palps dizzy o: Vital Signs Period Temp Pulse Resp BP Sys/Arevalo Pulse Ox Last 24 Hr 98.0 F-98.4 F 76-78 20-20 126-151/93-104 100-100 Constitutional: Yes: Well Nourished, No Distress, Calm Cardiovascular: Yes: Regular Rate and Rhythm, S1, S2. No: JVD, Gallop, Murmur Respiratory: Yes: Regular, CTA Bilaterally. No: Accessory Muscle Use, Rales, Wheezes Extremities: No: Cold Edema: No Neurological: Yes: Alert, Oriented no jaundice diaphoresis Current Medications Generic Name Dose Route Start Last Admin Trade Name Freq PRN Reason Stop Dose Admin Amlodipine Besylate 5 mg 11/08/17 10:00 11/10/17 13:12 Norvasc - PO 5 mg DAILY DORON Administration Folic Acid 1 mg 11/06/17 10:00 11/10/17 13:13 Folic Acid - PO 1 mg DAILY DORON Administration Heparin Sodium (Porcine) 5,000 unit 11/07/17 16:00 11/10/17 05:14 Heparin - SQ 5,000 unit TID DORON Administration Ofloxacin 1 drop 11/05/17 18:45 11/10/17 13:12 Ocuflox 0.3% Eye Drops - OS 1 drop Q2H DORON Administration Thiamine HCl 100 mg 11/06/17 10:00 11/10/17 13:12 Vitamin B1 - PO 100 mg DAILY DORON Administration CBC, BMP 11/07/17 07:40 11/10/17 08:40 CXR: Low lung volumes. No acute pulmonary pathology ECG on 11/06/2017: NSR at 63/min with TWI III and aVF, QTc 493) Echo 03/2016: Normal LV size and function, Grade I diastolic dysfunction and no significant valular abnormality.) echo 10/2017: nl lv/rv, mild mr, rvsp 40-50 Mibi 10/2017: nl mpi, nl lvef tele: SR Assessment/Plan 47 yo female with chronic anemia and HTN now with right flank pain after fall and incidental (+) troponin. (+) Troponin, SOB -Incidental (+) troponin that is flat and intermediate range (0.2-0.3 x 3), no acute ischemic ECG changes -pt with no acute CV sx's, though she reports chronic exertional sob/fatigue x 6 months -Doubt ACS and may be demand related to underlying EtOH withdrawal and anemia -Would continue asa and metoprolol -echo and nuclear stress test both unremarkable 2) HTN -stable 3) Etoh -EtOH withdrawal and anemia management as per primary team cardiac lackey stable for dc
--- NOTE | 2017-11-10 15:01 | PN ---
Teaching Attending Note Name of Resident: Brendan Delgado ATTENDING PHYSICIAN STATEMENT I saw and evaluated the patient. I reviewed the resident's note and discussed the case with the resident. I agree with the resident's findings and plan as documented. SUBJECTIVE:asymptomatic. eager to have stress test done so she can go home. denies CP, SOB, fever, chills, N/V/C/D OBJECTIVE: Last Vital Signs Temp Pulse Resp BP Pulse Ox 98.2 F 78 20 126/93 100 11/10/17 05:44 11/10/17 05:44 11/10/17 08:17 11/10/17 05:44 11/10/17 08:17 General NAD ASSESSMENT AND PLAN: 47 yo F with PMHx of ETOH abuse/multiple prior admissions for detox, HTN, admitted with tremors, Right sided abdominal pain, found with Elevated troponin and Electrolyte abnormalities. 1. Elevated troponin- flat trend with no EKG changes. no reports of CP however has multiple risk factors. NMST done today and negative. cardio on board 2. Acute ETOH withdrawals- CIWA 0. not interested in inpatient rehab. encouraged to stay sober and seek help from outpatient clinics and AA. 3. Hallucinations- was evaluated by psych and determined competent. possible underlying psychiatric disturbance. does not seem to be a danger to herself or orthers. can f/u with psych as outpatient 4. Abdominal pain- now resolved. evaluated by surgery with no intervention at this time 5. hypokalemia- resolved 6. hypomagnesemia- resolved 7. Prolonged Qtc- due to electrolyte disturbances. avoid QT prolonging medication 8. Anemia- likely Hgb remains stable. iron panel wnl. can f/u with hematology as outpatient. no signs of bleeding. no indication for transfusion. 9. HTN- started on norvasc yesterday with improvement. 10. DVT ppx- hep sq 11. d/c home. counselled on drug abstinence. and follow up wtih PMD and psych
[2017-11-10 15:29] VITALS: BP 149/85; PULSE 74; TEMP 98.4
--- NOTE | 2017-11-10 15:57 | DS ---
Physical Exam: SUBJECTIVE: Patient seen and examined OBJECTIVE: Vital Signs Period Temp Pulse Resp BP Sys/Arevalo Pulse Ox Last 24 Hr 98.0 F-98.4 F 74-78 20-20 126-151/85-104 100-100 PHYSICAL EXAM GENERAL: The patient is awake, alert, and fully oriented, in no acute distress. HEAD: Normal with no signs of trauma. EYES: PERRL, extraocular movements intact, sclera anicteric, conjunctiva clear. ENT: Ears normal, nares patent, oropharynx clear without exudates, moist mucous membranes. NECK: Trachea midline, full range of motion, supple. LUNGS: Breath sounds equal, clear to auscultation bilaterally, no wheezes, no crackles, no accessory muscle use. HEART: Regular rate and rhythm, S1, S2 without murmur, rub or gallop. ABDOMEN: Soft, nontender, nondistended, normoactive bowel sounds, no guarding, no rebound, no hepatosplenomegaly, no masses. EXTREMITIES: 2+ pulses, warm, well-perfused, no edema. NEUROLOGICAL: Cranial nerves II through XII grossly intact. Normal speech, gait not observed. PSYCH: Normal mood, normal affect. SKIN: Warm, dry, normal turgor, no rashes or lesions noted. LABS Laboratory Results - last 24 hr 11/10/17 11/10/17 05:09 08:40 Sodium 138 Potassium 4.0 Chloride 106 Carbon Dioxide 27 Anion Gap 5 L BUN 8 Creatinine 0.7 Creat Clearance w eGFR > 60 POC Glucometer 113 Random Glucose 104 Calcium 8.8 Phosphorus 3.4 Magnesium 1.8 HOSPITAL COURSE: Date of Admission:11/05/17 Date of Discharge: 11/10/17 Discharge Summary Reason For Visit: ELEVATED TROPONIN Current Active Problems Alcohol dependence with uncomplicated withdrawal (Acute) Troponin level elevated (Acute) Alcohol-induced mood disorder (Chronic) Anemia (Chronic) HTN (hypertension) (Chronic) Substance or medication-induced sleep disorder, insomnia type (Chronic) Condition: Improved - Instructions Diet, Activity, Other Instructions: We are starting you on Amlodipine(Norvasc) 5 mg ONCE a day for your blood pressure. Please take all your medications as prescribed. We discussed your alcohol consumption in the hospital. Alcohol can damage your heart and has likely already started some damage. We strongly recommend you stop drinking alcohol. You may use an outpatient support group such as AA to help. Follow up with your primary care doctor in 1 week Please return to the ER if you experience chest pain, tremors, or dizziness. Referrals: Robby Whitten MD [Staff Physician] - Disposition: HOME - Home Medications Comprehensive Discharge Medication List: Ambulatory Orders Triamterene/Hydrochlorothiazid [Maxzide 37.5 mg-25 mg Tablet] 1 each PO DAILY Amlodipine Besylate [Norvasc -] 5 mg PO DAILY #30 tablet 11/09/17 - Discharge Referral Referred to [facility] No
== END 2017-11-10 17:26 | disposition home or self-care (01) | DRG 663 ==
LOC: JER 16:19 → JERBED 21:21 → J4W 11-06 15:07
PROVIDERS: ADMIT Internal Medicine; ATTEND Internal Medicine
PROC: HZ2ZZZZ Detoxification Services for Substance Abuse Treatment (ICD-10-PCS; principal; 2017-11-06)
DX: D53.9 Nutritional anemia, unspecified (principal); N17.9 Acute kidney failure, unspecified; E87.8 Other disorders of electrolyte and fluid balance, not elsewhere classified; E83.42 Hypomagnesemia; F10.230 Alcohol dependence with withdrawal, uncomplicated; I12.9 Hypertensive chronic kidney disease with stage 1 through stage 4 chronic kidney disease, or unspecified chronic kidney disease; N18.9 Chronic kidney disease, unspecified; E87.6 Hypokalemia; I45.81 Long QT syndrome; R44.3 Hallucinations, unspecified; Z91.14 Patient's other noncompliance with medication regimen; F17.210 Nicotine dependence, cigarettes, uncomplicated; F19.982 Other psychoactive substance use, unspecified with psychoactive substance-induced sleep disorder
CPT/HCPCS: 36415; 70450-TC; 71045-TC-FY; 71250-TC; 74176-TC; 76705-TC; 78452-TC; 80048; 80053; 80307; 81003; 81015; 82550; 82553; 82607; 82728; 82962; 83021; 83036; 83540; 83550; 83690; 83735; 84100; 84425; 84466; 84484; 84703; 85025; 85044; 85610; 85660; 85730; 86850; 86900; 86901; 87086; 93005; 93010; 93017; 93306-TC; 99285-25; A9502; J1644; J2785; J7030

== ENCOUNTER 2017-11-22 20:48 | Observation (INO) | payer OTHER ==
[2017-11-22 20:56] VITALS: BMI 26.4
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
[2017-11-22] MEDS ORDERED: DIPHTH,PERTUSS(ACELL),TET 0.5 ML DISP.SYRIN IM ONE (23:28)
[2017-11-22] MEDS ORDERED: BACITRACIN/POLYMYXIN B SULFATE 15 GM TUBE TP ONE (23:46)
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
[2017-11-23] MEDS ORDERED: morphine CARPU-JECT 10 MG/1 ML DISP.SYRIN IVPUSH ONE (00:38)
[2017-11-23] MEDS ORDERED: morphine CARPU-JECT 2 MG/1 ML DISP.SYRIN IM ONE (00:40)
[2017-11-23] MEDS ORDERED: MORPHINE SULFATE 2 MG/ML VIAL ONE (00:56)
[2017-11-23] MEDS ORDERED: morphine SULFATE 4 MG/ML VIAL ONE ×3 (00:56→14:07)
[2017-11-23 02:16] LABS: BASO % 0.6 % (0-2.0); EOS % 0.4 % (0-4.5); HEMATOCRIT 27.8 % (32.4-45.2); HEMOGLOBIN 8.8 GM/dL (10.7-15.3); LYMPH % 15.7 % (8-40); MCHC 31.7 g/dl (32.0-36.0); MEAN CELL VOLUME 75.9 fl (80-96); MEAN PLT VOLUME 7.5 fl (7.5-11.1); MONO % 5.3 % (3.8-10.2); RBC 3.66 M/mm3 (3.60-5.2); RDW 30.3 % (11.6-15.6); WHITE BLOOD COUNT 13.1 K/mm3 (4.0-10.0)
[2017-11-23 02:19] LABS: URINE APPEARANCE CLOUDY; URINE BILIRUBIN NEGATIVE (<2.0 mg/dL); URINE COLOR AMBER; URINE GLUCOSE (UA) NEGATIVE (NEGATIVE); URINE KETONE NEGATIVE (NEGATIVE); URINE NITRITE NEGATIVE (NEGATIVE); URINE UROBILINOGEN NEGATIVE mg/dL (0.2-1.0)
[2017-11-23 02:29] LABS: ALBUMIN 3.6 g/dl (3.4-5.0); ALK PHOS 72 U/L (45-117); ANION GAP 6 (8-16); BILIRUBIN,TOTAL 0.3 mg/dL (0.2-1.0); BLOOD UREA NITROGEN 12 mg/dL (7-18); CALCIUM 8.5 mg/dL (8.5-10.1); CHLORIDE 107 mmol/L (98-107); CO2 25 mmol/L (21-32); CREATININE 0.9 mg/dL (0.55-1.02); GLUCOSE,RANDOM 86 mg/dL (74-106); POTASSIUM 3.7 mmol/L (3.5-5.1); SGOT/AST 32 U/L (15-37); SGPT/ALT 25 U/L (12-78); SODIUM 138 mmol/L (136-145); TOT PROT 7.6 g/dl (6.4-8.2)
[2017-11-23 02:33] LABS: URINE LEUK ESTERASE 1+ (NEGATIVE); URINE PROTEIN 2+ (NEGATIVE)
[2017-11-23 02:37] LABS: EPI CELLS MANY /HPF (FEW); URINE BACTERIA RARE /hpf (NONE SEEN); URINE HYALINE CAST 13 /lpf; URINE MUCUS MANY
[2017-11-23 02:43] LABS: ADD RBC MORPHOLOGY YES
[2017-11-23] MEDS ORDERED: KETOROLAC TROMETHAMINE 30 MG/1 ML VIAL IVPUSH ONE (03:25)
[2017-11-23] MEDS ORDERED: KETOROLAC TROMETHAMINE 30 MG/1 ML VIAL ONE (03:39)
[2017-11-23] MEDS ORDERED: LORazepam 2 MG/ML SDV VIAL ONE (03:39)
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
[2017-11-23 05:39] LABS: ANISOCYTOSIS 2+; PLATELET COUNT 1025 K/MM3 (134-434)
[2017-11-23 05:40] LABS: PLATELET ESTIMATE SIGNIFICANT INCREASE
[2017-11-23] MEDS ORDERED: chlordiazePOXIDE HCL 25 MG CAPSULE PO PRN (06:12)
[2017-11-23] MEDS ORDERED: SODIUM CHLORIDE 1,000 ML IV SCH (06:15)
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
[2017-11-23] MEDS: HEPARIN NA (PORCINE) 5,000 UNITS/ML 1ML VIAL SQ SCH ×2 (06:54→13:53)
[2017-11-23] MEDS ORDERED: HEPARIN NA (PORCINE) 5,000 UNITS/ML 1ML VIAL ONE (07:14)
[2017-11-23] MEDS: morphine SULFATE 4 MG/ML VIAL IVPUSH PRN ×2 (08:20→14:08)
[2017-11-23 09:01] LABS: HEMATOCRIT 27.4 % (32.4-45.2); HEMOGLOBIN 8.7 GM/dL (10.7-15.3); MCH 24.1 pg (25.7-33.7); MCHC 31.7 g/dl (32.0-36.0); MEAN CELL VOLUME 76.2 fl (80-96); MEAN PLT VOLUME 7.8 fl (7.5-11.1); PLATELET COUNT 980 K/MM3 (134-434); RBC 3.59 M/mm3 (3.60-5.2); RDW 29.5 % (11.6-15.6); WHITE BLOOD COUNT 13.8 K/mm3 (4.0-10.0)
[2017-11-23 09:18] LABS: ANION GAP 13 (8-16); BLOOD UREA NITROGEN 13 mg/dL (7-18); CALCIUM 9.1 mg/dL (8.5-10.1); CHLORIDE 102 mmol/L (98-107); CO2 23 mmol/L (21-32); CREATININE 0.8 mg/dL (0.55-1.02); GLUCOSE,RANDOM 70 mg/dL (74-106); MAGNESIUM 1.9 mg/dL (1.8-2.4); POTASSIUM 4.3 mmol/L (3.5-5.1); SODIUM 138 mmol/L (136-145)
[2017-11-23] MEDS ORDERED: SILVER SULFADIAZINE 1% TOP CREAM 50 GM JAR TP SCH (10:00)
[2017-11-23] MEDS ORDERED: BACITRACIN/POLYMYXIN B SULFATE 15 GM TUBE TP SCH ×2 (10:00)
[2017-11-23] MEDS ORDERED: amLODIPine BESYLATE 5 MG TABLET (FP) PO SCH (10:00)
[2017-11-23] MEDS ORDERED: TRIAMTERENE AND HCTZ - 37.5 MG/25 MG CAPSULE PO SCH (10:00)
--- NOTE | 2017-11-23 10:31 | EKG ---
Test Reason : Blood Pressure : / mmHG Vent. Rate : 098 BPM Atrial Rate : 098 BPM P-R Int : 148 ms QRS Dur : 084 ms QT Int : 404 ms P-R-T Axes : 056 011 000 degrees QTc Int : 515 ms NORMAL SINUS RHYTHM PROLONGED QT ABNORMAL ECG WHEN COMPARED WITH ECG OF 07-NOV-2017 18:05, T WAVE INVERSION NO LONGER EVIDENT IN LATERAL LEADS Confirmed by BELEM POON, ROSARIO ([id number]) on 11/23/2017 10:31:21 AM Referred By: Confirmed By:ROSARIO PATRICIA MD
[2017-11-23] MEDS ORDERED: chlordiazePOXIDE HCL 25 MG CAPSULE ONE ×2 (11:12→17:47)
[2017-11-23] MEDS ORDERED: BACITRACIN 0.9 GM PACKET ONE (11:12)
[2017-11-23] MEDS ORDERED: SILVER SULFADIAZINE 1% TOP CREAM 50 GM JAR TP ONE (11:12)
[2017-11-23] MEDS: chlordiazePOXIDE HCL 25 MG CAPSULE PO SCH ×2 (11:14→17:48)
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
[2017-11-23 19:05] VITALS: BP 148/99; PULSE 116; TEMP 98.2
[2017-11-23] MEDS ORDERED: BACITRACIN/POLYMYXIN B SULFATE 15 GM TUBE TP ONE (23:46)
[2017-11-24] MEDS ORDERED: chlordiazePOXIDE HCL 25 MG CAPSULE PO SCH (11:00)
[2017-11-25] MEDS ORDERED: chlordiazePOXIDE 5 MG CAPSULE PO SCH (11:00)
[2017-11-26] MEDS ORDERED: chlordiazePOXIDE HCL 10 MG CAPSULE PO SCH (11:00)
== END 2017-11-23 19:07 | disposition short-term general hospital (02) ==
LOC: JER 20:48 → JERBED 11-23 03:34
PROVIDERS: ADMIT Internal Medicine; ATTEND Internal Medicine
PROC: 2W23X4Z Dressing of Abdominal Wall using Bandage (ICD-10-PCS; principal; 2017-11-23)
PROC: 2W2RX4Z Dressing of Left Lower Leg using Bandage (ICD-10-PCS; 2017-11-23)
PROC: 2W2MX4Z Dressing of Left Lower Extremity using Bandage (ICD-10-PCS; 2017-11-23)
PROC: 2W26X4Z Dressing of Right Inguinal Region using Bandage (ICD-10-PCS; 2017-11-23)
PROC: 2W27X4Z Dressing of Left Inguinal Region using Bandage (ICD-10-PCS; 2017-11-23)
PROC: 2W25X4Z Dressing of Back using Bandage (ICD-10-PCS; 2017-11-23)
PROC: 3E0333Z Introduction of Anti-inflammatory into Peripheral Vein, Percutaneous Approach (ICD-10-PCS; 2017-11-23)
PROC: 3E033NZ Introduction of Analgesics, Hypnotics, Sedatives into Peripheral Vein, Percutaneous Approach (ICD-10-PCS; 2017-11-23)
PROC: 3E0337Z Introduction of Electrolytic and Water Balance Substance into Peripheral Vein, Percutaneous Approach (ICD-10-PCS; 2017-11-23)
PROC: 3E023GC Introduction of Other Therapeutic Substance into Muscle, Percutaneous Approach (ICD-10-PCS; 2017-11-23)
PROC: 3E0234Z Introduction of Serum, Toxoid and Vaccine into Muscle, Percutaneous Approach (ICD-10-PCS; 2017-11-23)
DX: T21.34XA Burn of third degree of lower back, initial encounter (principal); T21.27XA Burn of second degree of female genital region, initial encounter; T24.192A Burn of first degree of multiple sites of left lower limb, except ankle and foot, initial encounter; T31.30 Burns involving 30-39% of body surface with 0% to 9% third degree burns; X12.XXXA Contact with other hot fluids, initial encounter; Y93.89 Activity, other specified; Y92.008 Other place in unspecified non-institutional (private) residence as the place of occurrence of the external cause; I10 Essential (primary) hypertension; F10.20 Alcohol dependence, uncomplicated; D64.9 Anemia, unspecified
CPT/HCPCS: 16030; 36415; 71045-TC-FY; 80048; 80053; 81003; 81015; 83735; 84100; 85025; 85027; 87086; 90471; 90715; 93005; 93010; 96372; 96374; 96375; 99284-25; G0378; J1644; J7030

== ENCOUNTER 2022-06-18 12:23 | Emergency (ER) | payer OTHER ==
[2022-06-18] MEDS ORDERED: MIDAZOLAM HCL 2 MG/2 ML SINGLE DOSE VIAL ONE ×2 (12:35→12:59)
[2022-06-18 12:43] VITALS: BMI 27.6
[2022-06-18] MEDS ORDERED: MIDAZOLAM HCL 2 MG/2 ML SINGLE DOSE VIAL IVPUSH ONE ×3 (12:43→12:57)
[2022-06-18] MEDS ORDERED: MAG HYDROX/AL HYDROX/SIMETH 30 ML UNIT-DOSE CUP ONE (12:49)
[2022-06-18] MEDS ORDERED: ACETAMINOPHEN 1000 MG/100 ML BAG IVPB ONE (12:58)
[2022-06-18 13:28] LABS: EOS % 0.1 % (0-4.5); HEMOGLOBIN 13.8 GM/dL (10.7-15.3); LYMPH % 31.2 % (8-40); MCH 29.5 pg (25.7-33.7); MCHC 32.9 g/dl (32.0-36.0); MEAN CELL VOLUME 89.6 fl (80-96); MONO % 7.3 % (3.8-10.2); NEUT % 60.4 % (42.8-82.8); PLATELET COUNT 333 10^3/uL (134-434); RBC 4.69 M/mm3 (3.60-5.2); RDW 16.5 % (11.6-15.6)
[2022-06-18 13:39] LABS: CALCIUM 8.4 mg/dL (8.5-10.1)
[2022-06-18 13:40] LABS: ALBUMIN 3.8 g/dl (3.4-5.0)
[2022-06-18 13:43] LABS: CREATININE 0.6 mg/dL (0.55-1.3)
[2022-06-18] MEDS ORDERED: ACETAMINOPHEN INJECTION 100 ML IVPB ONE (13:43)
[2022-06-18 13:44] LABS: BILIRUBIN,TOTAL 0.4 mg/dL (0.2-1)
[2022-06-18 13:45] LABS: TOT PROT 7.4 g/dl (6.4-8.2)
[2022-06-18 13:58] LABS: ACTIVATED PTT 38.1 SECONDS (25.2-36.5); INR 1.03 (0.83-1.09); PROTHROMBIN TIME (PATIENT) 11.9 SEC (9.7-13.0)
[2022-06-18 14:19] LABS: MAGNESIUM 2.1 mg/dL (1.8-2.4)
[2022-06-18] MEDS ORDERED: KETOROLAC TROMETHAMINE 15 MG/ML VIAL IVPUSH ONE (15:02)
[2022-06-18] MEDS ORDERED: KETOROLAC TROMETHAMINE 30 MG/1 ML VIAL ONE (15:03)
[2022-06-18] MEDS ORDERED: KETOROLAC TROMETHAMINE 30 MG/1 ML VIAL IM ONE (15:07)
[2022-06-18 16:04] VITALS: BP 128/68; PULSE 65; RESP 18; TEMP 98.1
== END 2022-06-18 16:01 | disposition home or self-care (01) ==
LOC: JER 12:23
PROC: 3E0333Z Introduction of Anti-inflammatory into Peripheral Vein, Percutaneous Approach (ICD-10-PCS; principal; 2022-06-18)
PROC: 3E033NZ Introduction of Analgesics, Hypnotics, Sedatives into Peripheral Vein, Percutaneous Approach (ICD-10-PCS; 2022-06-18)
PROC: 3E033NZ Introduction of Analgesics, Hypnotics, Sedatives into Peripheral Vein, Percutaneous Approach (ICD-10-PCS; 2022-06-18)
PROC: 3E0233Z Introduction of Anti-inflammatory into Muscle, Percutaneous Approach (ICD-10-PCS; 2022-06-18)
DX: S00.03XA Contusion of scalp, initial encounter (principal); F10.129 Alcohol abuse with intoxication, unspecified; W10.9XXA Fall (on) (from) unspecified stairs and steps, initial encounter
CPT/HCPCS: 36415; 70450-TC; 70486-TC; 71260-TC; 72125-TC; 74177-TC; 80053; 80307; 83735; 85025; 85610; 85730; 86850; 86900; 86901; 93005; 93010; 99284-25; Q9967

== ENCOUNTER 2023-06-01 10:15 | Emergency (ER) | payer OTHER ==
[2023-06-01 11:02] VITALS: TEMP 98.5; BMI 33.5
[2023-06-01] MEDS ORDERED: ACETAMINOPHEN 325 MG TABLET (FP) ONE (13:21)
[2023-06-01] MEDS ORDERED: KETOROLAC TROMETHAMINE 30 MG/1 ML VIAL ONE (13:21)
[2023-06-01] MEDS: KETOROLAC TROMETHAMINE 30 MG/1 ML VIAL IM ONE (13:27)
[2023-06-01] MEDS: ACETAMINOPHEN 325 MG TABLET (FP) PO ONE (13:28)
[2023-06-01 15:12] VITALS: BP 157/100; PULSE 109; RESP 20
[2023-06-01] MEDS ORDERED: cloNIDine HCL 0.1 MG TABLET ONE (15:19)
[2023-06-01] MEDS: cloNIDine HCL 0.1 MG TABLET PO ONE (15:29)
== END 2023-06-01 15:53 | disposition home or self-care (01) ==
LOC: JER 10:15
PROC: 3E0233Z Introduction of Anti-inflammatory into Muscle, Percutaneous Approach (ICD-10-PCS; principal; 2023-06-01)
DX: M25.561 Pain in right knee (principal); R22.41 Localized swelling, mass and lump, right lower limb; S89.91XA Unspecified injury of right lower leg, initial encounter; W01.0XXA Fall on same level from slipping, tripping and stumbling without subsequent striking against object, initial encounter; Y93.01 Activity, walking, marching and hiking
CPT/HCPCS: 73562-TC-RT-FY; 99284-25

== ENCOUNTER 2024-06-05 19:42 | Inpatient (IN) | payer OTHER ==
[2024-06-05 20:27] VITALS: BMI 34.5
[2024-06-05] MEDS ORDERED: chlordiazePOXIDE HCL 25 MG CAPSULE PO PRN (20:44)
[2024-06-05] MEDS ORDERED: BENZONATATE 200 MG CAPSULE PO PRN (20:47)
[2024-06-05] MEDS ORDERED: ACETAMINOPHEN 325 MG TABLET (FP) PO PRN (20:47)
[2024-06-05] MEDS ORDERED: BISMUTH SUBSALICYLATE 524 MG/30 ML PO PRN (20:47)
[2024-06-05] MEDS ORDERED: guaiFENesin 600 MG TABLET.ER (FP) PO PRN (20:47)
[2024-06-05] MEDS ORDERED: POLYETHYLENE GLYCOL (HEALTHYLAX) 3350 17 GM PACKET PO PRN (20:47)
[2024-06-05] MEDS ORDERED: NALOXONE (NARCAN) HCL 4 MG/0.1 ML SPRAY NS PRN (20:47)
[2024-06-05] MEDS ORDERED: DICYCLOMINE HCL 10 MG CAPSULE PO PRN (20:47)
[2024-06-05] MEDS ORDERED: MAGNESIUM HYDROX 2400MG/30ML ORAL SUSPENSION 30 ML CUP PO PRN (20:47)
[2024-06-05] MEDS ORDERED: LOPERAMIDE HCL 2 MG CAPSULE PO PRN (20:47)
[2024-06-05] MEDS ORDERED: MAG HYDROX/AL HYDROX/SIMETH 30 ML UNIT-DOSE CUP PO PRN (20:47)
[2024-06-05] MEDS ORDERED: ONDANSETRON *ODT* 4 MG TABLET SL PRN (20:47)
[2024-06-05] MEDS ORDERED: IBUPROFEN 400 MG TABLET (FP) PO PRN (20:47)
[2024-06-05] MEDS ORDERED: BENZOCAINE/MENTHOL (CHLORASEPTIC ) LOZENGE MM PRN (20:47)
[2024-06-05] MEDS ORDERED: LORazepam 2 MG/ML SDV VIAL ONE (20:59)
[2024-06-05] MEDS ORDERED: propRANOLol HCL 10 MG TABLET ONE (21:00)
[2024-06-05] MEDS: TRIMETHOBENZAMIDE HCL 200MG/2ML INJ IM ONE (21:19)
[2024-06-05] MEDS: LORazepam 2 MG/ML SDV VIAL IM ONE (21:19)
[2024-06-05] MEDS: propRANOLol HCL 10 MG TABLET PO ONE (21:19)
[2024-06-05] MEDS: chlordiazePOXIDE HCL 25 MG CAPSULE PO ONE (21:21)
[2024-06-05] MEDS: IBUPROFEN 600 MG TABLET (FP) PO PRN (21:54)
[2024-06-05] MEDS: MELATONIN 5 MG TABLETS PO SCH (21:54)
[2024-06-05] MEDS: THIAMINE 100 MG TABLET PO SCH (21:54)
[2024-06-05] MEDS: PANTOPRAZOLE 20 MG TABLET PO SCH (21:54)
[2024-06-05] MEDS ORDERED: PANTOPRAZOLE 20 MG TABLET PO SCH (22:00)
[2024-06-05] MEDS: chlordiazePOXIDE HCL 25 MG CAPSULE PO SCH (23:08)
[2024-06-06] MEDS: METHOCARBAMOL 500 MG TABLET PO PRN (02:31)
[2024-06-06] MEDS: hydrOXYzine PAMOATE 25 MG CAPSULE (FP) PO PRN (02:31)
[2024-06-06] MEDS ORDERED: HYDROCHLOROTHIAZIDE 50 MG TABLET PO SCH (10:00)
[2024-06-06] MEDS: HYDROCHLOROTHIAZIDE 25 MG TABLET (FP) PO SCH (10:30)
[2024-06-06] MEDS: PRENATAL VITAMINS W/ FOLIC ACID TABLET (FP) PO SCH (10:31)
[2024-06-06 11:16] LABS: MCH 30.1 pg (25.7-33.7); MCHC 32.5 g/dl (32.0-36.0); MEAN CELL VOLUME 92.7 fl (80-96); MEAN PLT VOLUME 8.3 fl (7.5-11.1); PLATELET COUNT 255 10^3/uL (134-434); RBC 3.99 M/mm3 (3.60-5.2)
[2024-06-06 11:18] LABS: POTASSIUM 3.7 mmol/L (3.5-5.1)
[2024-06-06 11:25] LABS: ALBUMIN 3.5 g/dl (3.4-5.0); BLOOD UREA NITROGEN 15.9 mg/dL (7-18)
[2024-06-06 11:28] LABS: BILIRUBIN,TOTAL 0.6 mg/dL (0.2-1); CREATININE 0.7 mg/dL (0.55-1.3); TOT PROT 6.9 g/dl (6.4-8.2)
[2024-06-06] MEDS ORDERED: propRANOLol HCL 10 MG TABLET PO SCH ×2 (11:45→18:00)
[2024-06-06] MEDS: propRANOLol HCL 10 MG TABLET PO ONE (11:46)
[2024-06-06] MEDS: LOSARTAN POTASSIUM 50 MG TABLET PO SCH (12:57)
[2024-06-06] MEDS: propRANOLol HCL 10 MG TABLET PO SCH (17:20)
[2024-06-06] MEDS ORDERED: cloNIDine HCL 0.1 MG TABLET PO SCH (22:00)
[2024-06-07] MEDS: chlordiazePOXIDE HCL 25 MG CAPSULE PO SCH (05:15)
[2024-06-08] MEDS ORDERED: chlordiazePOXIDE HCL 10 MG CAPSULE PO PRN
[2024-06-08] MEDS: chlordiazePOXIDE HCL 10 MG CAPSULE PO SCH (06:00)
[2024-06-09] MEDS: chlordiazePOXIDE HCL 10 MG CAPSULE PO SCH (05:45)
[2024-06-09] MEDS: QUEtiapine FUMARATE 50 MG TABLET PO SCH (10:37)
[2024-06-10] MEDS: chlordiazePOXIDE HCL 10 MG CAPSULE PO ONE (05:50)
[2024-06-10 06:36] VITALS: RESP 16
[2024-06-10 09:26] VITALS: BP 136/94; PULSE 71; TEMP 97.8
== END 2024-06-10 12:35 | disposition home or self-care (01) | DRG 775 ==
LOC: YASAS 19:42 → Y6N 21:03
PROVIDERS: ADMIT Allergy & Immunology; ATTEND Allergy & Immunology
PROC: HZ2ZZZZ Detoxification Services for Substance Abuse Treatment (ICD-10-PCS; principal; 2024-06-05)
DX: F10.230 Alcohol dependence with withdrawal, uncomplicated (principal); F19.282 Other psychoactive substance dependence with psychoactive substance-induced sleep disorder; F10.282 Alcohol dependence with alcohol-induced sleep disorder; F10.24 Alcohol dependence with alcohol-induced mood disorder; I10 Essential (primary) hypertension; K21.9 Gastro-esophageal reflux disease without esophagitis
CPT/HCPCS: 36415; 80053; 80305; 80307; 81025; 85027; 86780; 93005; 93010

== ENCOUNTER 2024-08-10 22:14 | Inpatient (IN) | payer OTHER ==
[2024-08-10 22:38] VITALS: BMI 33.5
[2024-08-10] MEDS ORDERED: chlordiazePOXIDE HCL 25 MG CAPSULE PO PRN (22:48)
[2024-08-10] MEDS ORDERED: IBUPROFEN 400 MG TABLET (FP) PO PRN (22:49)
[2024-08-10] MEDS ORDERED: LOPERAMIDE HCL 2 MG CAPSULE PO PRN (22:49)
[2024-08-10] MEDS ORDERED: DICYCLOMINE HCL 10 MG CAPSULE PO PRN (22:49)
[2024-08-10] MEDS ORDERED: BENZOCAINE/MENTHOL (CHLORASEPTIC ) LOZENGE MM PRN (22:49)
[2024-08-10] MEDS ORDERED: BISMUTH SUBSALICYLATE 524 MG/30 ML PO PRN (22:49)
[2024-08-10] MEDS ORDERED: guaiFENesin 600 MG TABLET.ER (FP) PO PRN (22:49)
[2024-08-10] MEDS ORDERED: BENZONATATE 200 MG CAPSULE PO PRN (22:49)
[2024-08-10] MEDS ORDERED: MAG HYDROX/AL HYDROX/SIMETH 30 ML UNIT-DOSE CUP PO PRN (22:49)
[2024-08-10] MEDS ORDERED: MAGNESIUM HYDROX 2400MG/30ML ORAL SUSPENSION 30 ML CUP PO PRN (22:49)
[2024-08-10] MEDS ORDERED: POLYETHYLENE GLYCOL (HEALTHYLAX) 3350 17 GM PACKET PO PRN (22:49)
[2024-08-10] MEDS ORDERED: NALOXONE (NARCAN) HCL 4 MG/0.1 ML SPRAY NS PRN (22:49)
[2024-08-10] MEDS ORDERED: ONDANSETRON *ODT* 4 MG TABLET SL PRN (22:49)
[2024-08-10] MEDS ORDERED: TRIMETHOBENZAMIDE HCL 200MG/2ML INJ IM PRN (23:00)
[2024-08-11] MEDS: chlordiazePOXIDE HCL 25 MG CAPSULE PO SCH (04:15)
[2024-08-11] MEDS: IBUPROFEN 600 MG TABLET (FP) PO PRN (04:17)
[2024-08-11] MEDS: METHOCARBAMOL 500 MG TABLET PO PRN (04:17)
[2024-08-11] MEDS: ACETAMINOPHEN 325 MG TABLET (FP) PO PRN (08:15)
[2024-08-11 09:06] VITALS: BP 138/89; PULSE 102; RESP 19; TEMP 98.1
[2024-08-11] MEDS: PRENATAL VITAMINS W/ FOLIC ACID TABLET (FP) PO SCH (09:47)
[2024-08-11] MEDS: FAMOTIDINE 20 MG TABLET PO SCH (09:47)
[2024-08-11] MEDS: GABAPENTIN 300 MG CAPSULE PO ONE (09:47)
[2024-08-11] MEDS: HYDROCHLOROTHIAZIDE 25 MG TABLET (FP) PO SCH (09:47)
[2024-08-11] MEDS: LOSARTAN POTASSIUM 50 MG TABLET PO SCH (09:48)
[2024-08-11 10:27] LABS: HEMATOCRIT 39.6 % (34.1-44.9); MCHC 32.8 g/dl (32.2-35.5); MEAN CELL VOLUME 89.6 fl (79.4-94.8); MEAN PLT VOLUME 9.7 fl (9.4-12.3); PLATELET COUNT 557 x10^3/uL (182-369); RDW 14.9 % (12.3-16.6)
[2024-08-11 10:31] LABS: POTASSIUM 3.9 mmol/L (3.5-5.1)
[2024-08-11 10:49] LABS: ALBUMIN 3.7 g/dl (3.4-5.0); BLOOD UREA NITROGEN 14.6 mg/dL (7-18); CALCIUM 9.7 mg/dL (8.5-10.1)
[2024-08-11 10:53] LABS: CREATININE 0.8 mg/dL (0.55-1.3)
[2024-08-11 10:54] LABS: BILIRUBIN,TOTAL 0.5 mg/dL (0.2-1); TOT PROT 7.1 g/dl (6.4-8.2)
[2024-08-11] MEDS ORDERED: THIAMINE 100 MG TABLET PO SCH (22:00)
[2024-08-11] MEDS ORDERED: MELATONIN 5 MG TABLETS PO SCH (22:00)
[2024-08-12] MEDS ORDERED: chlordiazePOXIDE HCL 10 MG CAPSULE PO PRN
[2024-08-12] MEDS ORDERED: chlordiazePOXIDE HCL 25 MG CAPSULE PO SCH (05:00)
[2024-08-13] MEDS ORDERED: chlordiazePOXIDE HCL 10 MG CAPSULE PO SCH (05:00)
[2024-08-14] MEDS ORDERED: chlordiazePOXIDE HCL 10 MG CAPSULE PO SCH (05:00)
[2024-08-15] MEDS ORDERED: chlordiazePOXIDE HCL 10 MG CAPSULE PO ONE (05:00)
== END 2024-08-11 10:08 | disposition left against medical advice (07) | DRG 770 ==
LOC: YASAS 22:14 → Y3N 23:20
PROVIDERS: ADMIT Allergy & Immunology; ATTEND Allergy & Immunology
PROC: HZ2ZZZZ Detoxification Services for Substance Abuse Treatment (ICD-10-PCS; principal; 2024-08-09)
DX: F10.230 Alcohol dependence with withdrawal, uncomplicated (principal); F32.A Depression, unspecified; I10 Essential (primary) hypertension; K21.9 Gastro-esophageal reflux disease without esophagitis
CPT/HCPCS: 36415; 80053; 80305; 80307; 81025; 85027; 86780